=== PATIENT | male | born 1955 | race Caucasian/White ===

== ENCOUNTER 2025-01-24 19:26 | Inpatient (IN) | payer MEDICARE, MEDICAID, SELFPAY ==
--- OUTSIDE RECORDS SUMMARY | 2025-01-22 09:59 | XMS_ITS | Encounter Summary ---
Author Organization [facility]– [place]Note 2] Address [address] [place] [address] Care Team Providers Care Kennel Assistant Name Role Phone Sara Viramontes MD Unavailable Violet Salguero RN Unavailable Unavailable Jim Alfredo DO Unavailable [phone] Cesar Grullon MD Primary Care Provider Romelia Rodriguez LPN Unavailable UnavailPepper Patton AIRPORT OPERATIONS SUPERVISOR Unavailable [phone] Reason for Visit * Reason Comments Psychiatric Evaluation * Auth/Cert Specialty Diagnoses / Procedures Referred By Contac t Referred To Contact Diagnoses Suicidal ideation Referral ID Status Reason Start Date Expiration Date Visits Re quested Visits Authorized [id number] 1 1 Encounter Details Date Type Department Care Team (Late st Contact Info) Description 01/22/2025 9:59 AM EDT - 01/24/2025 5:06 PM EDT Hospital Encounter [facility] - [address] [phone] Andrea Iqbal MD [address] [place] [address] Kathy Leo MD [address] [place] [address] Danny Tapia MD [address] [place] [address] Jaime Awad MD [address] [place] [address] Sohail Benito MD [address] [place] [address] Tristan Monet MD [address] [facility] [place] [address] Lucia Ellis MD [address] [place] [address] Suicidal ideation Discharge Disposition: Psychiatric Hospital other than [facility] Social History Tobacco Use Types Packs/Day Years Used Date Smoking Tobacco: Never Smokeless Tobacco: Never Alcohol Use Standard Drinks/Week Comments No 0 (1 standard drink = 0.6 oz pur e alcohol) Housing Stability - SDOH Screener Answer Date Recorded What is your living situation today? Steady hous ing 08/17/2024 Do you need help with Housing/Alf resources? Not on file 08/17/2024 Patient indicated no issues from the most recent SDOH questionnaire Not on file 08/17/2024 Homeless diagnosis active in problem list or in an encounter in the past year? Yes 08/17/2024 Health Literacy - SDOH Screener Answer Date Recorded Do you ever need help readin g or understanding information about your medical conditions? No 08/17/2024 Patient indicated no issues from the most recent THRIVE questionnaire Not on file 08/17/2024 Oral Health - SDOH Screener Answer Date Recorded Was there a time you needed dental care in the last 12 months but was not received? No 08/17/2024 Patient indicated no issues from the most recent THRIVE questionnaire Not on file 08/17/2024 Transportation - SDOH Screener Answer D ate Recorded Do you have trouble getting transportation to medical appointments? No 08/17/2024 Do you need help with Transp ortation to medical appointments? Not on file 08/17/2024 Patient indicated no issues from the most recent SDOH questionnaire Not on file 08/17/2024 Food Insecurity - SDOH Screener Answer Date Recorded Within the past 12 months, t he food you bought just didn't last and you didn't have money to get more? Never true Within the past 12 months, y ou worried whether your food would run out before you got money to buy more? Sometimes true 2024 Do you need help with Food resources? Not on graciela e 08/17/2024 Patient indicated no issues from the most recent SDOH questionnaire Not on file 08/17/2024 Depression Answer Date Recorded PHQ-9 Total Score 3 08/17/2024 Sparta Depression Scale Score Not o n file 08/17/2024 EPDS: The thought of harming myself has occurred to me Not on file 08/17/2024 PHQ-A: In the past year have you felt depressed or sad most days, even if you felt okay sometimes? Not on file 08/17/2024 PHQ-A: If you are experienci ng any of the problems on this form, how difficult have these problems made it for you to do your work, take care of things at home or get along with other people? Not on file 08/17/2024 PHQ-A: Has there been a time in the past month when you have had serious thoughts about ending your life? Not on file 07/29 PHQ-A: Have you ever, in you r whole life, tried to kill yourself or made a suicide attempt? Not on file 08/17/2024 PHQ9/A: Thoughts that you wo uld be better off , or of hurting yourself in some way? No 08/17/2024 Care Giving - SDOH Screener Answer Date Recorded Do you have trouble taking c are of a child, family member or friend? No 08/17/2024 Do you need help with Childcare/Daycare? Not on file 08/17/2024 Do you need help with Elder Care Not on file 08/17/2024 Patient indicated no issues from the most recent SDOH questionnaire Not on file 08/17/2024 Employment - SDOH Screener Answer Date Recorded Are you currently unemployed and looking for a j ob? No 08/17/2024 Are you or your parent/guard gala currently unemployed and looking for a job? (age <= 21) Not on file 08/17/2024 Patient indicated no issues from the most recent THRIVE questionnaire (<22) Not on file 08/17/2024 Patient indicated no issues from the most recent THRIVE questionnaire (22+) Not on file 08/17/2024 Affording Medications - SDOH Screener Answer Date Recorded Do you have trouble paying for medications? No 08/17/2024 Do you need help with Paying for Medicine resour marlys? Not on file 08/17/2024 Patient indicated no issues from the most recent SDOH questionnaire Not on file 08/17/2024 Fall Risk Screener Answer Date Recorded Have you had any falls in the past year yes 08/17/2024 If yes, how many? 2 08/17/2024 If yes, any injury? Yes 08/17/2024 List injuries: right shoulder 08/17/2024 Utilities - SDOH Screener Answer Date R ecorded Do you have trouble paying y our heating and/or electricity bill? No 08/17/2024 Do you need help with Utilities? Not on file 08/17/2024 Patient indicated no issues from the most recent SDOH questionnaire Not on file 08/17/2024 Social Isolation - SDOH Screener Answer Date Recorded Are you dissatisfied with ho w often you see or talk to people that you care about and feel close to? (For example: talking to friends on the phone, visiting friends or family, going to buddhist or club meetings) No 08/17/2024 Patient indicated no issues from the most recent THRIVE questionnaire Not on file 08/17/2024 Adolescent Depression Answer Date Recor ded PHQ-9 Total Score 3 08/17/2024 Sparta Depression Scale Score Not o n file 08/17/2024 EPDS: The thought of harming myself has occurred to me Not on file 08/17/2024 PHQ-A: In the past year have you felt depressed or sad most days, even if you felt okay sometimes? Not on file 08/17/2024 PHQ-A: If you are experienci ng any of the problems on this form, how difficult have these problems made it for you to do your work, take care of things at home or get along with other people? Not on file 08/17/2024 PHQ-A: Has there been a time in the past month when you have had serious thoughts about ending your life? Not on file 07/29 PHQ-A: Have you ever, in you r whole life, tried to kill yourself or made a suicide attempt? Not on file 08/17/2024 PHQ9/A: Thoughts that you wo uld be better off , or of hurting yourself in some way? No 08/17/2024 Sex and Gender Information Value Date Recorded Sex Assigned at Male 03/07/2024 3:57 PM EDT Legal Sex Male 1:57 PM EST Gender Identity Male 03/07/2024 3:57 PM EDT Sexual Orientation Straight 08/14/2024 10 :23 AM EDT documented as of this encounter Last Filed Vital Signs Vital Sign Reading Time Taken Comments Blood Pressure 140/84 01/24/2025 5:03 PM EDT Pulse 67 01/24/2025 5:03 PM EDT Temperature 36.7 C (98.1 F) 01/24/2025 3:35 AM EDT Respiratory Rate 17 01/24/2025 5:03 PM EDT Oxygen Saturation 100% 01/24/2025 5:03 PM EDT Inhaled Oxygen Concentration - - Weight 68 kg (150 lb) 01/22/2025 10:06 AM EDT Height 167.6 cm (5' 6 ) 01/22/2025 10:06 AM EDT Body Mass Index 24.21 01/22/2025 10:06 AM EDT documented in this encounter Discharge Summaries * Lucia Ellis MD - 01/24/2025 3:56 PM EDT Discharge Diagnosis 1. Suicidal ideation Discharge Order Date/Time 01/24/2025 Discharge Disposition Psychiatric Hospital other than [facility] Discharge Condition Condition: Fair HPI 69 y.o. male placed in observation medically cleared with: 1. Suicidal ideation HPI 69-year-old male with a history of hypothyroidism, hepatocellular carcinoma and hepatitis-C, anxiety and depression presenting with suicidal ideation. Labs are reassuring. Complaining of anxiety, treated with hydroxyzine with improvement. Seen by psychiatry and recommends treating with hydroxyzine t.i.d. PRN Past History Past Medical History: Diagnosis Date Anxiety Dental disease upper denture Depression Disease of thyroid gland Hepatitis C Hypothyroidism Liver cancer (HCC) Pelvis fracture (HCC) Past Surgical History: Procedure Laterality Date CHOLECYSTECTOMY KNEE ARTHROSCOPY Left LAMINECTOMY LIVER RESECTION N/A 03/04/2023 Procedure: HEPATIC RESECTION; Surgeon: Jim Alfredo DO; Location: [facility]; Service: General ORIF FINGER / THUMB FRACTURE Left SHOULDER SURGERY Bilateral rotator cuff left and compound fracture right shoulder Family History Problem Relation Age of Onset No Known Problems Mother No Known Problems Father No Known Problems Sister No Known Problems Brother No Known Problems Son No Known Problems Daughter No Known Problems Maternal Grandmother No Known Problems Maternal Grandfather No Known Problems Paternal Grandmother No Known Problems Paternal Grandfather No Known Problems Cousin Rheum arthritis Neg Hx Osteoarthritis Neg Hx Asthma Neg Hx Diabetes Neg Hx Heart failure Neg Hx Hyperlipidemia Neg Hx Hypertension Neg Hx Migraines Neg Hx Rashes / Skin problems Neg Hx Seizures Neg Hx Stroke Neg Hx Thyroid disease Neg Hx Cancer Neg Hx Social History Tobacco Use Smoking Status Never Smokeless Tobacco Never Substance and Sexual Activity Alcohol Use No Substance and Sexual Activity Drug Use Yes Types: Marijuana Comment: daily Physical Exam General: Alert. No distress. Pulmonary: No respiratory distress Neurological: Moving all extremities at baseline Psychiatric: Calm Assessment & Plan 69 y.o. male placed in observation medically cleared with: 1. Suicidal ideation After further treatment and assessment during this observation stay, I conclude that this patient is medically stable, but requires inpatient psychiatric evaluation to address an unstable behavioral condition. Discharge Summary 69-year-old male with a history of hypothyroidism, hepatocellular carcinoma and hepatitis-C, anxiety and depression presenting with suicidal ideation. Labs are reassuring. Medically cleared. Complaining of anxiety, treated with hydroxyzine with improvement. Seen by psychiatry and recommends treating with hydroxyzine t.i.d. PRN. Evaluated by social work and accepted to [facility] by Dr. Francisco or further treatment Total time spent preparing this discharge summary was less than 30 minutes. Lucia Ellis MD 01/24/25 1558 documented in this encounter Medications at Time of Discharge clomiPHENE (CLOMID) 50 MG tabletIndications:Lo w testosterone in male Take 1 tablet (50 mg total) by mouth daily 30 tablet 2 12/25/2024 gabapentin (NEURONTIN) 300 MG capsuleIndications:C hronic pain syndrome,Closed fracture of ramus of left pubis with delayed healing, subsequent encounter,Chronic right shoulder pain Take 1 capsule (300 mg total) by mouth at bedtime as needed for back pain 90 capsule 2 08/17/2024 levothyroxine (SYNTHROID) 50 MCG tabletIndications:Ot her specified hypothyroidism TAKE 1 TABLET(50 MCG) BY MOUTH EVERY MORNING BEFORE BREAKFAST 90 tablet 3 04/27/2024 lidocaine (LIDODERM) 5 % patchIndications:Rig ht shoulder injury, initial encounter Place 1 patch on the skin every 12 (twelve) hours Remove & Discard patch within 12 hours or as directed by MD 10 patch 09/10/2024 LORazepam (ATIVAN) 0.5 MG tabletIndications:GA D (generalized anxiety disorder),Panic attacks Take 1 tablet (0.5 mg total) by mouth daily as needed for anxiety 6 tablet 09/12/2024 valACYclovir (VALTREX) 500 MG tabletIndications:He rpes TAKE 2 TABLETS(1000 MG) BY MOUTH DAILY 180 tablet 3 06/25/2024 documented as of this encounter Progress Notes * Philomena Ruiz, SALES SYSTEMS ENGINEER - 01/24/2025 3:14 PM EDT PSYCHIATRIC FACILITY TRANSFER NOTIFICATION FORM Type of Placement: Voluntary No Involuntary Yes Section 12 Needed Yes Inpatient Level of Care (check one): X Inpatient Psych ?Med/Psych ?Rita-Psych ? Inpatient Dual Diagnosis ?ACCS ? YCCS ?Other Facility Name: [facility] Address: [address] [place] [address] Erp Manager: STEPHANIE / ADMISSIONS Accepting MD: DR. LISSET MAGALLON Date/Time of Arrival: TODAY FOR 6 PM ARRIVAL PATIENT Notified: CHW TO UPDATE PT Family / Legal Guardian / Health Care Proxy Notified: CHW TO NOTIFY PER PT REQUEST MURIEL signed with accepting facility ([facility] patients ONLY): ? Yes ([facility] Patient) X No (NOT a [facility] Patient) Additional Information / Instruction CHW TO COMPLETE [facility] MITESH FORM AND FAX TO [facility] [phone] * MEGHANN Lou - 01/24/2025 2:52 PM EDT Stephanie/Matthew - requested EKG (faxed), will have MD review referral and call SW back with determination. MEGHANN Lou 01/24/2025 2:52 PM * Tristan Monet MD - 01/24/2025 12:00 AM EDT Daily Progress Note Time In Obs. 3 hours 35 minutes 55 seconds Chief Complaint 1. Suicidal ideation HPI 69 y.o. male placed in observation medically cleared with: 1. Suicidal ideation 69-year-old male with a history of hepatocellular carcinoma not currently on treatment presents with suicidal ideation. The history is provided by medical records. Objective Ht Readings from Last 1 Encounters: 01/22/25 5' 6 (1.676 m) Wt Readings from Last 1 Encounters: 01/22/25 150 lb (68 kg) Body mass index is 24.21 kg/m??. Allergies[1] Vital signs in last 24 hours: [98.1 ??F (36.7 ??C)-98.5 ??F (36.9 ??C)] 98.1 ??F (36.7 ??C) [50-66] 66 [18] 18 (125-140)/(61-73) 125/73 Physical Exam General: Alert. No distress. Pulmonary: No respiratory distress Neurological: Moving all extremities at baseline Psychiatric: Calm Assessment/Plan 69 y.o. male placed in observation medically cleared with: 1. Suicidal ideation Based on my history, physical examination, and initial ED course, the patient's behavioral condition continues to be unstable and requires further observation to help determine final disposition. Plan will be to monitor for significant changes in medical and psychiatric status, observe for and treat agitation, psychosis, or withdrawal symptoms, coordinate care with social work team, and ensure patient safety. [1] No Known Allergies Tristan Monet MD 01/24/25 0000 * Philomena Ruiz, [facility] - 01/23/2025 10:44 AM EDT Behavioral Health - Re-assessment Date of Encounter: 01/23/2025 Intervention started: 10 AM Intervention ended: 1020 AM Telehealth: No Reason for Encounter: Follow up behavioral health re-assessment 20 minutes spent face to face with patient on 01/23/2025. Patient: Mauricio Mix Age: 69 y.o. Gender: male Referring Provider: Cesar Grullon MD PCP: Cesar Grullon MD Assessment Mauricio Mix was re-assessed today due to suicidal ideation. Chart was reviewed and the patient was identified by name and date of . Confidentiality and limits to confidentiality were reviewed. Diagnosis/Problems Problem List[1] Plan Discharge/Transition Plan: INVOLUNTARY INPATIENT PSYCHIATRIC LEVEL OF CARE Does pt meet CCS level of care, and if not why?: No - acuity, meets s.12a criteria HPI/Interval History Pt is a 69 yo male who endorse suicidal ideation with a specific plan and intent in the context of multiple life stressors and lack of support, recommendation is involuntary inpatient psychiatric level of care. Upon reassessment, Pt presents with irritable mood and minimal engagement, interview was limited and terminated due to agitation, states he does not feel well, extremely anxious, continues to endorse suicidal ideation with plan, means and intent noting his terminal illness and recent eviction as primary precitipitants, became agitated when his THC vape pen was found on the floor and handed overto Security, states this helps with pain, RN/MD aware of his complaints of anxiety and pain and will address accordingly, when this SW reiterated the plan of care, became increasingly upset and demanded to leave, I do not want to in an institution, although there is a right to self-determination, he is unable to have a rational conversation re: hospice care and there are other risk factors that place him at imminent risk to suicide. Depression Screening PHQ-9 - unable to participate at this time Anxiety Screening MASSIMO 7 - unable to participate at this time Psychotherapy Plan Focus/target symptoms: Psychotherapy today focused on psychiatric acuity/level of care Goals: Facilitate Safety/stabilization Interventions Jointly developed safety plan for patient. Patient's response/feedback to therapy session: Patient was unable to engage in meaningful/therapeutic discussion due to distress and agitation. Mental Status Examination Appearance - Disheveled Behavior - Uncooperative and Restless Speech - WNL Affect/Mood - Agitated Thought Process - Intact and Brinklow Thought Content - Suicidal Psychosis - Denies Insight - Poor Judgement - Impaired Suicide/Homicide Ideation/Intent/Means: SI with specific plan, means and intent Risk Assessment: Current Risk Behavior/Thoughts/Ideation: SI with specific plan, means and intent History of Risk Behavior or Harmful Acts to Self or Others: no Electronically signed by: MEGHANN Lou 01/23/2025 10:44 AM [1] Patient Active Problem List Diagnosis Traumatic fracture of cervical spine (HCC) Traumatic closed fracture of C6 vertebra with minimal displacement, initial encounter (HCC) Hyponatremia Closed fracture of ramus of left pubis (HCC) Other specified hypothyroidism Suicidal ideation Generalized abdominal pain Other constipation Substance use disorder 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 3 hours 35 minutes 55 seconds Chief Complaint 1. Suicidal ideation HPI 69 y.o. male placed in observation medically cleared with: 1. Suicidal ideation Patient presented with suicidal ideation Objective Ht Readings from Last 1 Encounters: 01/22/25 5' 6 (1.676 m) Wt Readings from Last 1 Encounters: 01/22/25 150 lb (68 kg) Body mass index is 24.21 kg/m??. Allergies[1] Vital signs in last 24 hours: [97.5 ??F (36.4 ??C)-99 ??F (37.2 ??C)] 98.5 ??F (36.9 ??C) [50-73] 52 [18-20] 18 (129-155)/(61-91) 140/61 Physical Exam General: Alert. No distress. Pulmonary: No respiratory distress Neurological: Moving all extremities at baseline Psychiatric: Calm Assessment/Plan 69 y.o. male placed in observation medically cleared with: 1. Suicidal ideation Based on my history, physical examination, and initial ED course, the patient's behavioral condition continues to be unstable and requires further observation to help determine final disposition. Patient requested medications to help with the withdrawal from Kratom. He was provided with benzodiazepines which helped. Clonidine was deferred given heart rate in the 50s. Plan will be to monitor for significant changes in medical and psychiatric status, observe for and treat agitation, psychosis, or withdrawal symptoms, coordinate care with social work team, and ensure patient safety. [1] No Known Allergies Danny Tapia MD 01/23/25 0247 * MEGHANN Lou - 01/22/2025 3:37 PM EDT Referral uploaded to [facility]. MEGHANN Lou 01/22/2025 3:37 PM documented in this encounter Consult Notes * Gwendolyn Murdock NP - 01/24/2025 11:10 AM EDTAssociated Order(s): IP CONSULT TO PSYCHIATRY [facility] [place][Note 2] - Initial Psychiatric Consultation Patient Name: Mauricio Mix : 1955 Chief Complaint/Reason for Consultation: medication management ASSESSMENT 69 y.o. male with a reported history of depression and anxiety who presents to to the emergency department after patient reported SI with plan to overdose on medications to his therapist. Today, met with patient who was resting in bed with his eyes closed with blanket covering his head. Patient gotout of bed and stated I don't need to be here. Patient presents as A&O x3 and reported he told his therapist he was ordering pills to overdose and end his life due to multiple personal stressors. Multiple personal stressors include terminal cirrhosis, lung cancer and being evicted form his apartment. Patient reports he is active with a therapist and does not have a psychiatrist. Denied current psychiatric medications. When asked about listed Ativan 0.5 mg daily PRN patient denied use. He reports being prescribed everything in the 80's including Prozac, Zoloft and Beck[place] . Reports Beck[place] was prescribed for depression and not Bipolar d/o. Reports he vapes marijuana daily (last use on day he presented to ED), and has been drinking Kratom tea 3-4 times/day (last use prior to ED). Hereports using both substances for pain management. Patient has required several PO, IM medications for agitation and anxiety while in the ED. When discussing medications patient reports he does not want to start a daily medication for depression/anxiety at this time. When attempting to possible medi cation options patient stated I don't want anything strong or that can be addicting like Valium. Patient had received a one time dose of Hydroxyzine 50 mg prior to interview which he reports was effective. Discussed having Hydroxyzine 50 mg TID PRN for anxiety ordered and patient agreeable. Patient asked keno writer let me go home, I don't need to be here. Patient made aware that he is unable to leave and that he is an inpatient psychiatric bed search as he reported SI with plan to OD on his medications. HOSPITAL PROBLEMS Principal Problem: Suicidal ideation Active Problems: Substance use disorder Adjustment disorder with mixed anxiety and depressed mood Primary Psychiatric Diagnosis Adjustment disorder with mixed anxiety and depressed mood PLAN (+/-Psychotherapy) Patient is on an involuntary hold due to report of SI with plan to overdose on medications. He has declined starting daily medications for depression/anxiety. He was agreeable to starting [id number] mg TID PRN for anxiety which was ordered by attending. Other Psychiatric Diagnoses: 1) Substance Use disorder PLAN (+/-Psychotherapy): Patient reports daily marijuana and Kratom use. Patient denied current withdrawal symptoms. Reportsanxiety is related to being on a hold for an inpatient psychiatric bed. Discussed possible Kratom withdrawal with attending as Babstom can bind to the same receptors in the brain as opioids. Patient denied current withdrawal symptoms. MDM/Coordination Multiple medical issues lung cancer, cirrhosis and Suicidal ideation Labs reviewed: as below EKG reviewed. QTc: 389 on 01/22/25 EMR reviewed Vital signs reviewed Discussed with ER Physician:Dr. Ellis in person Discussed with patient's nurse HISTORY History of Present Illness: Per nursing patient has been asking for medications to be sedated while he is in the hospital. He has received several doses of IM/PO medications including Versed, Haldol, Zyprexa, Ativan, Clonidine,and Hydroxyzine. Patient voiced frustration that he could not go home and stated whose going to take me, I'm almost 70, I don't want to just stay here in this room. Patient aware that he is an involuntary inpatient bed search and social work is working on bed placement. Patient frustrated with keno writer after learning he would not be discharged home and ended the interview. Psychiatric History: Current Treatment: Ativan 0.5 mg daily PRN for anxiety Inpt: denied Med Trials: Prozac, Zoloft, [place] Suicide Attempts: Denied Substances: marijuana and Kratom use daily Social History: Lives in an apartment with 3 men, facing eviction. Declined further information Developmental History: Declined Family History: Family history unknown Medical History: Past Medical History: Diagnosis Date Anxiety Dental disease upper denture Depression Disease of thyroid gland Hepatitis C Hypothyroidism Liver cancer (HCC) Pelvis fracture (HCC) Past Surgical History: Procedure Laterality Date CHOLECYSTECTOMY KNEE ARTHROSCOPY Left LAMINECTOMY LIVER RESECTION N/A 03/04/2023 Procedure: HEPATIC RESECTION; Surgeon: Jim Alfredo DO; Location: [facility]; Service: General ORIF FINGER / THUMB FRACTURE Left SHOULDER SURGERY Bilateral rotator cuff left and compound fracture right shoulder Allergies: Allergies[1] Home Meds: Prior to Admission medications Medication Sig Start Date End Date Taking? Authorizing Provider clomiPHENE (CLOMID) 50 MG tablet Take 1 tablet (50 mg total) by mouth daily 12/25/24 03/25/25 Yes Cesar Grullon MD gabapentin (NEURONTIN) 300 MG capsule Take 1 capsule (300 mg total) by mouth at bedtime as needed for back pain 08/17/24 08/17/25 Yes Cesar Grullon MD levothyroxine (SYNTHROID) 50 MCG tablet TAKE 1 TABLET(50 MCG) BY MOUTH EVERY MORNING BEFORE BREAKFAST 04/27/24 Yes Mary Ravi NP lidocaine (LIDODERM) 5 % patch Place 1 patch on the skin every 12 (twelve) hours Remove & Discard patch within 12 hours or as directed by 09/10/24 Yes Marcela Khan NP LORazepam (ATIVAN) 0.5 MG tablet Take 1 tablet (0.5 mg total) by mouth daily as needed for anxiety 09/12/24 Yes Cesar Grullon MD valACYclovir (VALTREX) 500 MG tablet TAKE 2 TABLETS(1000 MG) BY MOUTH DAILY 06/25/24 Yes Mary Ravi NP I have reviewed the home medication list Current Meds: Current Facility-Administered Medications: docusate sodium (COLACE) capsule 200 mg, 200 mg, Oral, Daily, Lucia Ellis MD, 200 mg at 01/24/25 0910 gabapentin (NEURONTIN) capsule 300 mg, 300 mg, Oral, At bedtime PRN, Kathy Leo MD, 300 mg at 01/23/25 1933 hydrOXYzine HCl tablet 50 mg, 50 mg, Oral, TID PRN, Lucai Ellis MD levothyroxine (SYNTHROID) tablet 50 mcg, 50 mcg, Oral, Daily before breakfast, Kathy Leo MD, 50 mcg at 01/24/25 0543 lidocaine 4 % (ASPERCREME LIDOCAINE) patch 1 patch, 1 patch, Transdermal, Daily, Kathy Leo MD LORazepam (ATIVAN) tablet 0.5 mg, 0.5 mg, Oral, Daily PRN, Kathy Leo MD, 0.5 mg at 01/24/25 0854 polyethylene glycol 3350 (MIRALAX) powder for oral solution 17 g packet 17 g, 17 g, Oral, Daily PRN, Lucia Ellis MD sennosides (SENNA,SENOKOT) tablet 8.6 mg, 8.6 mg, Oral, At bedtime, Jaime Awad MD, 8.6 mg at 01/23/25 1453 valACYclovir (VALTREX) tablet 1,000 mg, 1,000 mg, Oral, Daily, Kathy Leo MD, 1,000 mg at 01/24/25 0849 Current Outpatient Medications: clomiPHENE (CLOMID) 50 MG tablet, Take 1 tablet (50 mg total) by mouth daily, Disp: 30 tablet, Rfl:2 gabapentin (NEURONTIN) 300 MG capsule, Take 1 capsule (300 mg total) by mouth at bedtime as needed for back pain, Disp: 90 capsule, Rfl: 2 levothyroxine (SYNTHROID) 50 MCG tablet, TAKE 1 TABLET(50 MCG) BY MOUTH EVERY MORNING BEFORE BREAKFAST, Disp: 90 tablet, Rfl: 3 lidocaine (LIDODERM) 5 % patch, Place 1 patch on the skin every 12 (twelve) hours Remove & Discard patch within 12 hours or as directed by MD, Disp: 10 patch, Rfl: 0 LORazepam (ATIVAN) 0.5 MG tablet, Take 1 tablet (0.5 mg total) by mouth daily as needed for anxiety, Disp: 6 tablet, Rfl: 0 valACYclovir (VALTREX) 500 MG tablet, TAKE 2 TABLETS(1000 MG) BY MOUTH DAILY, Disp: 180 tablet, Rfl: 3 I have reviewed the current medication list ROS: positive for - anxiety, behavioral disorder, depression, irritability, and suicidal ideation negative for - disorientation, hallucinations, or memory difficulties EXAMINATION Vitals: Body mass index is 24.21 kg/m??. Height: 5' 6 (167.6 cm) Weight: 150 lb (68 kg) [98 ??F (36.7 ??C)-98.1 ??F (36.7 ??C)] 98.1 ??F (36.7 ??C) [61-66] 62 [18] 18 (119-131)/(62-77) 131/77 Mental Status Evaluation: Appearance/Behavior: Appears stated age, labile when told he would not be discharged home Sensorium/Orientation: Awake, alert, and oriented x 3 Motor/Movements: No abnormal movements observed Speech: Normal rate and volume Mood: I don't need to be here. Affect: Labile Thought Process: [place] Thought Content: No delusions reported Suicide/Homicide Ideation / Intent / Means: SI with plan to overdose on medications Perceptual Disturbances: Denied AVH Cognition: Intact Insight: Poor Judgment Poor Impulse control Poor Short term memory Intact prison memory Intact TESTING Recent Labs: No results found for this or any previous visit (from the past 24 hours). Labs Reviewed CBC AND AUTO DIFFERENTIAL - Abnormal; Notable for the following components: Result Value RBC 3.81 (*) HGB 13.7 (*) HCT 39.4 (*) MCV 103.4 (*) MCH 36.0 (*) PLT 134 (*) All other components within normal limits COMPREHENSIVE METABOLIC PANEL - Abnormal; Notable for the following components: Glucose 123 (*) BUN 8 (*) AST 80 (*) ALT 94 (*) All other components within normal limits ACETAMINOPHEN LEVEL - Abnormal; Notable for the following components: Acetaminophen Level <2 (*) All other components within normal limits TOXICOLOGY SCREEN, URINE (NON FCU) - Abnormal; Notable for the following components: Cannabinoids Qualitative, Ur Detected (*) All other components within normal limits Narrative: This urine immunoassay drug method is for medical SCREENING only and should not be used for non-medical (employment,legal) purposes. The test result(s) may be affected by dietary and over the counter medications. Negative cut-offs for these tests are set to detect DRUG ABUSE. Therapeutic levels of these drugs may not be detected. (The negative cut-offs for the drug classes are: Cocaine, Methadone, Opiates 300 ng/ml; Barbituates, Benzodiazepines 200 ng/ml; Amphetamines 1000 ng/ml; Cannabinoids 50 ng/ml; Buprenorphine 5 ng/ml; Oxycodone 100 ng/ml; Fentanyl 1 ng/ml). As this is a screening methodology, any positive results are UNCONFIRMED. Confirmation of positive results may be requested from the laboratory within 5 days. All test results should be interpreted in context of the patient's clinical condition. ETHANOL - Normal SALICYLATE LEVEL - Normal TOXICOLOGY SCREEN, URINE Narrative: The following orders were created for panel order Toxicology screen, urine. Procedure Abnormality Status --------- ------ Toxicology screen, urine[[id number]] Abnormal Final result Please view results for these tests on the individual orders. Imaging: There were no relevant imaging studies done this admission Gwendolyn Murdock NP 01/24/2025 @ 11:29 AM [1] No Known Allergies Cosigned by Gisele Hackett MD at 01/24/2025 2:32 PM EDT Associated attestation - Gisele Hackett MD - 01/24/2025 2:32 PM EDT I have reviewed the KEV note and agree with the documented findings and plan of care. * Philomena Ruiz, [facility] - 01/22/2025 12:52 PM EDTAssociated Order(s): CONSULT TO MENTAL HEALTH ASSESSMENT Referred by: ED physician Chief Complaint (Reason for visit): Psychiatric Evaluation Intervention Started: 1230 PM Intervention Ended: 1 PM Telehealth: No A consult was placed to assess for psychiatric evaluation/level of care. Chart was reviewed and thepatient was identified by name and date of . Reviewed confidentiality and limits to confidentiality prior to evaluation. Plan Disposition plan: INVOLUNTARY INPATIENT PSYCHIATRIC LEVEL OF CARE Psychosocial History Mauricio Mix is a 69 y.o. single white male who presented to the emergency department by ambulanceon a s.12a for suicidal ideation with a plan. Warm handoff received from Kylie/Sandro, who reports that he had established a safety plan with his psychiatrist (Keira) that he would call Crisis in the event he was experiencing suicidal ideation, which he did so today and stated, I don't see the point of this, I made up my mind, has multiple life stressors - recent cancer diagnosis, has missed numerous medical appointments because he cannot get out of bed, has no natural supports and pending eviction, is waiting for his money to come inon the first of the month, so that he can picker / packer his medications and overdose on them, she recommended inpatient psychiatric level of care, became distressed by this plan. Pt was quite anxious upon arrival, received oral medications, difficult to arouse and remain awake, I'm going to kill myself next week, plan to overdose, interview limited and terminated due to somnolence. Positive for: SI with specific plan, means and intent Negative for: unable to fully assess Collateral contacts: see above Depression Screening PHQ-9 - unable to participate at this time Anxiety Screening MASSIMO 7 - unable to participate at this time Past Psychiatric History Current treatment providers: Yes History of inpatient psychiatric hospitalizations: Yes History of suicide attempts/self-injurious behavior: No History of violence: No Access to weapons: No Substance Use History and Assessment Substances used: Marijuana and Kratum Use Family Psychiatric History: noncontributory Developmental/Social History Marital status: single Living arrangements: evicted from his apartment Support system: therapist Employment status: unknown Source of income: SSI Education level: high school Healthcare access/barriers: none ADLS: independent IADLS: independent HCP: No Guardian: No Legal history: No history: No Trauma history: Yes Mental Status Exam Appearance: thin and drowsy Behavior: calm and cooperative Consciousness/Orientation: oriented to time, place, person, and reason for visit Eye contact: mainly direct Motor activity: no psychomotor agitation and no psychomotor retardation Mood: anxious and depressed Affect: mood congruent Speech: WNL Thought process: concrete Thought content: suicidal Perception (hallucinations): none Delusions: none elicited Suicidal/Homicidal Ideation: SI with specific plan, means and intent Concentration/attention: poor Memory: recent and remote memory intact Intelligence/fund of knowledge: appears average Impulsivity: impulsive Reliability: fair historian Insight: fair Judgment: unimpaired Psychological Risk Assessment Current Risk Behavior/Thoughts/Ideation/plan/means/intent: SI with specific plan, means and intent History of Risk Behavior or Harmful Acts to Self or Others: No Risk and protective factors: therapist, no support otherwise, multiple life stressors Impression/Formulation Pt is a 69 yo male who endorse suicidal ideation with a specific plan and intent in the context of multiple life stressors and lack of support, recommendation is involuntary inpatient psychiatric level of care. Per MD, Pt is medically cleared and there is no active cancer treatment at this time. Diagnosis: F43.20 Adjustment Disorder Therapy plan: Target symptoms: suicide risk Goals of therapy: further stabilization, safety planning Patients capacity to participate and benefit from therapy: yes Estimated duration of treatment/number of sessions: until discharge/transfer Treatment is expected to improve the health status and/or functioning of the patient. Does pt meet CCS level or care, and if not why?: no - acuity, meets s.12a MEGHANN Lou 01/22/2025 @ 2:02 PM documented in this encounter ED Notes * Aisha Aaron RN - 01/24/2025 5:06 PM EDT Nurse to nurse provided to [facility] * Aisha Aaron RN - 01/24/2025 5:04 PM EDT Patient up for transfer to [facility] at this time. [facility] at bedside with patient. Patient educated on plan of care and transfer. [facility] given report. Per , receiving facility will contact this RN when they are ready for report. Patient belongings given to [facility]. Patient seen exiting department strapped into EMS stretcher accompanied by EMS * Aisha Aaron RN - 01/24/2025 9:47 AM EDT Patient self reports x1 bowel movement at this time * Aisha Aaron RN - 01/24/2025 9:06 AM EDT Patient stating he is still anxious and states he hasn't had a bowel movement in 2 days. Patient educated that the lorazepam has not had adequate time to take effect. MD Ellis made aware patient is stating he has not had a bowel movement in 2 days. * Aisha Aaron RN - 01/24/2025 8:53 AM EDT Patient requesting a PRN for anxiety. Patient medicated per eMAR * Rafat Noel RN - 01/24/2025 3:49 AM EDT Pt continues to be restless and requesting medication. Pt feels like he is withdrawing from Kratum.Pt requesting to speak with provider. Provider assessed pt and pt medicated with Clonidine 0.1 mg po * Rafat Noel RN - 01/24/2025 1:23 AM EDT Pt up at this time to use bathroom, ambulating with steady gait * Rafat Noel RN - 01/23/2025 11:52 PM EDT Pt continues to pace around room, reports he needs medication for sleep and anxiety. Pt agitated attimes, provider aware and pt medicated with Haldol 5 mg IM and Versed 2 mg IM. Pt requested IM meds, no physical hold needed. * Rafat Noel RN - 01/23/2025 7:57 PM EDT Pt slammed door, throwing things in room and yelling fuck you, what are your going to do Securitycalled for back-up. Pt then apologized for his behavior * Rafat Noel RN - 01/23/2025 7:39 PM EDT Pt agitated, reports the medication is not helping and requesting more medication for anxiety. Provider aware. Pt medicated with Zyprexa Zydis 5 mg po * Hilary Rothman RN - 01/23/2025 3:14 PM EDT Assumed care of patient at this time. Patient alternating between pacing unit asking for more anxiety medication and tucking self into bed * Sera Matos RN - 01/23/2025 3:03 PM EDT Keira Randall [phone] from outpatient therapy called to ask about patient, patient unwilling to speak to nurse to give verbal consent for conversation with outpatient therapy. Took name and number from outpatient therapy and did not discuss patient or confirm admit. * Sera Matos RN - 01/23/2025 2:55 PM EDT Patient medicated per orders threw cup on the ground and went to bed to lay down under the covers. Patient reports he wants to kill himself and is actively looking for ways to kill himself during admission and is looking for anything in my room to do it No safety hazards seen in room at this time. 1:1 monitoring continues MD Ritesh hand * Sera Matos RN - 01/23/2025 2:45 PM EDT Patient tearful see new orders, awaiting for senna to be verified prior to administration. * Sera Matos RN - 01/23/2025 1:58 PM EDT Patient requesting more anxiety medication and requesting something to help him have a bowel movement. MD Awad aware * Sera Matos RN - 01/23/2025 12:03 PM EDT Patient requesting something for constipation, MD Awad aware * Sera Matos RN - 01/23/2025 11:23 AM EDT Assumed care of patient at this time. Patient resting in stretcher with equal rise and fall of chest wall. 1:1 monitoring continues. * Kat Miles RN - 01/23/2025 7:13 AM EDT Assumed care of this patient. Patient is resting comfortably on the bed. No signs of distress noted. Unlabored breathing with equal chest rise and fall noted. Protective care rounding in place. Care on going. * Felix Cruz RN - 01/23/2025 6:51 AM EDT GOOD EFFECT NOTED FROM ATIVAN GIVEN EARLIER FOR ANXIETY AND SLEEP, PT HAS BEEN SLEEPING IN LONG NAPS AFTER MED GIVEN, NO FURTHER COMPLAINTS OFFERED * Felix Cruz RN - 01/23/2025 3:43 AM EDT PT UP AGAIN TO THE DESK C/O CONSTIPATION, PT REPORTED NO BM IN 3 DAYS, NOTIFIED AND ORDER OBTAINED FOR MOM 15ML'S PO GIVEN, EFFECT PENDING * Felix Cruz RN - 01/23/2025 1:09 AM EDT PT HAS BEEN SLEEPING IN SHORT NAPS, PT C/O RESTLESSNESS AND ANXIETY, NOTIFIED AND ORDER OBTAINEDFOR ATIVAN 2MG PO GIVEN, EFFECT PENDING * Kathy Leo MD - 01/23/2025 12:05 AM EDT Assumed care of this patient from off-going physician, pending psychiatric disposition. I was asked to see the patient as he was reporting feeling unwell suspecting he was withdrawing from kratom , requesting medication for this On my approach, he is sleeping comfortably, awakens to touch and appears calm, speech clear. Explained there is no specific medication to treat kratom withdrawal. Asked what symptoms he is feeling, he says only anxiety. Provided oral anxiolytic A while later, he apparently was up and profoundly restless banging on windows and could not be verbally redirected so given IM meds Kathy Leo MD 01/23/25 0132 * Felix Cruz RN - 01/22/2025 11:30 PM EDT ASSUMED CARE OF PT, PT QUIETLY LAYING ON HIS BED, PT REQUESTED AND RECEIVED A SNACK AND A DRINK, PTSTATES THAT HE STILL CAN'T SLEEP EVEN THOUGH HE APPEARS TIRED, PT REDIRECTED AT THIS TIME DUE TO GETTING MEDS A LITTLE OVER AN HOUR AGO, WILL CONTINUE TO MONITOR * Hilary Rothman RN - 01/22/2025 9:50 PM EDT Patient continuing to yell and bang on windows despite requests to stop and reminders he will wake up other patients. made aware and 5+2 ordered * Hilary Rothman RN - 01/22/2025 9:48 PM EDT Patient yelling and banging on window. Pacing in unit and crying * Hilary Rothman RN - 01/22/2025 9:16 PM EDT Patient now crawling on floor in room * Hilary Rothman RN - 01/22/2025 9:15 PM EDT Patient threw dinner tray in room * Hilary Rothman RN - 01/22/2025 7:48 PM EDT Patient expressing lightheadedness. Vitals obtained. Patient suspecting kratom withdrawal. Will consult with MD * Hilary Rothman RN - 01/22/2025 6:46 PM EDT Patient provided fresh scrubs at this time * Hilary Rothman RN - 01/22/2025 3:11 PM EDT Assumed care at this time. Pt noted to be resting on stretcher watching television. Respirations even and unlabored, equal chest rise and fall noted. No signs of distress noted. * Glo Grubbs RN - 01/22/2025 1:53 PM EDT Patient walking in and out of room, calm and cooperative. No distress continue to monitor under close observation, safety maintained. * Glo Grubbs RN - 01/22/2025 12:46 PM EDT Being evaluated by Social Work at this time. * Lisandra Barnett RN - 01/22/2025 11:44 AM EDT Assumed care of pt at this time, found pt ambulatory to /from [facility]. Pt anxious. Calm and cooperative, conversing with staff. Endorses concerns about moving his bowels and his medical diagnoses.Conversing with staff appropriately. Given water and crackers per request. * Andrea Iqbal MD - 01/22/2025 11:23 AM EDT Service Date: ED Arrival Date 01/22/25 Chief Complaint Chief Complaint Patient presents with Psychiatric Evaluation MDM SUMMARY Number and Complexity of Problems Acute Problems Considered Suicidal ideation: Patient presenting with suicidal ideation, plan to overdose. Plan for lab work, social work evaluation. Chronic Conditions Considered Hepatocellular carcinoma Amount and Complexity of Data Tests Ordered and reviewed [x] CBC [x] CMP [x] Troponin [] UA [] EKG [] Imaging Other: [] ordered [] reviewed [] Considered but not ordered External Note(s) reviewed [] Assessment required independent historian from [] Tests independently interpreted by me [] Chest Xray - see ED Course [] EKG - see ED Course [] Other Discussed Management with [x] Management discussed with social media designer Discussed Test Interpretation with [] Risk of Complications and/or Morbidity/Mortality Drugs [] OTC [x] Prescription Drug Management [] Parenteral Controlled Substances [] Drug Therapy Requiring Intensive Monitoring Treatment [x] Decision regarding Hospitalization [] Decision not to resuscitate or to de-escalate care because of poor prognosis [] Diagnosis or treatment significantly limited by social determinants of health Surgery [] Tests [] HPI 69-year-old male, history of hepatitis-C, with reported cirrhosis, and documentation in the chart of hepatocellular carcinoma, presents to the emergency department for evaluation of suicidal ideation Patient feels he is terminally ill, and had a plan to take pills next week to kill himself Denies any significant physical complaints at this time He also reports that he is in an unstable has not situation and probably going to lose his house jen few weeks. The history is provided by the patient. ROS Review of Systems Past History Past Medical History: Diagnosis Date Anxiety Dental disease upper denture Depression Disease of thyroid gland Hepatitis C Hypothyroidism Liver cancer (HCC) Pelvis fracture (HCC) Past Surgical History: Procedure Laterality Date CHOLECYSTECTOMY KNEE ARTHROSCOPY Left LAMINECTOMY LIVER RESECTION N/A 03/04/2023 Procedure: HEPATIC RESECTION; Surgeon: Jim Alfredo DO; Location: [facility]; Service: General ORIF FINGER / THUMB FRACTURE Left SHOULDER SURGERY Bilateral rotator cuff left and compound fracture right shoulder Family History Problem Relation Age of Onset No Known Problems Mother No Known Problems Father No Known Problems Sister No Known Problems Brother No Known Problems Son No Known Problems Daughter No Known Problems Maternal Grandmother No Known Problems Maternal Grandfather No Known Problems Paternal Grandmother No Known Problems Paternal Grandfather No Known Problems Cousin Rheum arthritis Neg Hx Osteoarthritis Neg Hx Asthma Neg Hx Diabetes Neg Hx Heart failure Neg Hx Hyperlipidemia Neg Hx Hypertension Neg Hx Migraines Neg Hx Rashes / Skin problems Neg Hx Seizures Neg Hx Stroke Neg Hx Thyroid disease Neg Hx Cancer Neg Hx Social History[1] Physical Exam Triage Vitals [01/22/25 1006] BP 155/91 Heart Rate 71 Resp 20 Temp 97.5 ??F (36.4 ??C) Temp src Oral SpO2 96 % Weight 150 lb (68 kg) Height 5' 6 (1.676 m) Body mass index is 24.21 kg/m??. [place] body weight: 63.8 kg (140 lb 10.5 oz) Physical Exam Vitals and nursing note reviewed. Constitutional: Appearance: He is well-developed. Comments: Cachectic HENT: Head: Normocephalic and atraumatic. Right Ear: External ear normal. Left Ear: External ear normal. Nose: Nose normal. Eyes: Conjunctiva/sclera: Conjunctivae normal. Cardiovascular: Rate and Rhythm: Normal rate and regular rhythm. Pulmonary: Effort: Pulmonary effort is normal. No respiratory distress. Breath sounds: Normal breath sounds. Abdominal: General: There is no distension. Tenderness: There is no abdominal tenderness. Musculoskeletal: Cervical back: Normal range of motion and neck supple. Skin: General: Skin is warm and dry. Findings: No rash. Neurological: Cranial Nerves: No cranial nerve deficit. Psychiatric: Behavior: Behavior normal. ED Course Labs reviewed by me: Labs Reviewed CBC AND AUTO DIFFERENTIAL - Abnormal; Notable for the following components: Result Value RBC 3.81 (*) HGB 13.7 (*) HCT 39.4 (*) MCV 103.4 (*) MCH 36.0 (*) PLT 134 (*) All other components within normal limits COMPREHENSIVE METABOLIC PANEL - Abnormal; Notable for the following components: Glucose 123 (*) BUN 8 (*) AST 80 (*) ALT 94 (*) All other components within normal limits ACETAMINOPHEN LEVEL - Abnormal; Notable for the following components: Acetaminophen Level <2 (*) All other components within normal limits TOXICOLOGY SCREEN, URINE (NON FCU) - Abnormal; Notable for the following components: Cannabinoids Qualitative, Ur Detected (*) All other components within normal limits Narrative: This urine immunoassay drug method is for medical SCREENING only and should not be used for non-medical (employment,legal) purposes. The test result(s) may be affected by dietary and over the counter medications. Negative cut-offs for these tests are set to detect DRUG ABUSE. Therapeutic levels of these drugs may not be detected. (The negative cut-offs for the drug classes are: Cocaine, Methadone, Opiates 300 ng/ml; Barbituates, Benzodiazepines 200 ng/ml; Amphetamines 1000 ng/ml; Cannabinoids 50 ng/ml; Buprenorphine 5 ng/ml; Oxycodone 100 ng/ml; Fentanyl 1 ng/ml). As this is a screening methodology, any positive results are UNCONFIRMED. Confirmation of positive results may be requested from the laboratory within 5 days. All test results should be interpreted in context of the patient's clinical condition. ETHANOL - Normal SALICYLATE LEVEL - Normal TOXICOLOGY SCREEN, URINE Narrative: The following orders were created for panel order Toxicology screen, urine. Procedure Abnormality Status --------- ------ Toxicology screen, urine[[id number]] Abnormal Final result Please view results for these tests on the individual orders. Radiology imaging reviewed by me: No orders to display Procedures No notes on file Progress Medical Decision Making Suicidal ideation: Patient presenting with suicidal ideation, plan to overdose. Plan for lab work, social work evaluation. Amount and/or Complexity of Data Reviewed Labs: ordered. Decision-making details documented in ED Course. Risk Prescription drug management. Based on my history, physical examination and initial ED course, the patient is now medically clearbut his behavioral condition continues to be unstable and requires further observation to help determine final disposition. Plan will be to monitor for significant changes in medical and psychiatric status, observe for and treat agitation, psychosis, or withdrawal symptoms, coordinate care with social work team, and ensure patient safety. Clinical Impressions: ED Course as of 01/22/25 1334 Tue Jan 22, 2025 1023 WBC: 6.5 1023 Hemoglobin(!): 13.7 1023 Hematocrit(!): 39.4 1023 Platelets(!): 134 1101 Sodium: 136 1101 Potassium: 4.1 1101 Chloride: 100 1101 CO2: 29 1101 Glucose(!): 123 1101 Creatinine: 1.00 1101 Total Bilirubin: 0.4 1101 AST(!): 80 1101 Alkaline Phosphatase: 101 1101 ALT(!): 94 1102 Ethanol Lvl: <3 1102 Salicylate Lvl: <3.0 1102 Acetaminophen Level(!): <2 1307 Patient evaluated by social work, will require more intensive treatment Clinical Impressions: as of 01/22/25 1334 Suicidal ideation Care Transferred: Disposition Observation [1] Social History Socioeconomic History Marital status: Single Tobacco Use Smoking status: Never Smokeless tobacco: Never Vaping Use Vaping status: Every Day Substances: THC Substance and Sexual Activity Alcohol use: No Drug use: Yes Types: Marijuana Comment: daily Sexual activity: Yes Partners: Female control/protection: None Andrea Iqbal MD 01/22/251334 * Ambika Abbott RN - 01/22/2025 11:00 AM EDT Med rec completed with [facility] pharmacy at this time. * Ambika Abbott RN - 01/22/2025 10:37 AM EDT Pt restless, wandering through hallways and this RN redirecting pt with minimal effect, pt extremely anxious, MD Rasheed made aware and MD to evaluate pt and formulate a plan. Protective care rounding in place at this time. * Ambika Abbott RN - 01/22/2025 10:16 AM EDT Pt changed into green scrubs at this time. * Ambika Abbott RN - 01/22/2025 10:12 AM EDT 69 y/o M presents to ED on section 12 for psychiatric evaluation after he made +SI comments to his therapist. 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 Pt also reports he is being evicted from his apartment next week. Pt reports feelings of hopelessness, depression, and anxiety. Reports he has been using cannabis and Kratum to assist with his pain. Pt endorses +SI with plan to buy pills and take them all at once. documented in this encounter Miscellaneous Notes * ED Procedure Note - Kathy Leo MD - 01/22/2025 10:49 PM EDTAssociated Order(s): EKG electrocardiogram EKG electrocardiogram Date/Time: 01/22/2025 10:49 PM Performed by: Kathy Leo MD Authorized by: Kathy Leo MD Measurements: QTc Interval: 389 ms Findings: Rate: bradycardic Rhythm: Sinus rhythm ST Segments: normal T Waves: normal Interpreted by ED physician Kathy Leo MD 01/22/25 073 documented in this encounter Plan of Treatment Upcoming Encounters Date Type Department Care Team (Late st Contact Info) Description 02/05/2025 3:00 PM EDT Lab [facility] [address] [place] [address] 02/21/2025 1:40 PM EDT Office Visit [facility] [address] [place] [address] Cesar Grullon MD [address] [facility], [address] [place] [address] 04/16/2025 3:10 PM EST Office Visit [facility] [address] [place] [address] [place] [facility] [address] [place] [address] documented as of this encounter Procedures Procedure Name Priority Date/Time Associated Diagnosis Comments ECG 12-LEAD STAT 01/22/2025 10:49 PM EDT TOXICOLOGY SCREEN, URINE (NON FCU) STAT 01/22/2025 10:14 AM EDT TOXICOLOGY SCREEN, URINE STAT 01/22/2025 10:14 AM EDT CBC AND AUTO DIFFERENTIAL STAT 01/22/2025 10:14 AM EDT ETHANOL STAT 01/22/2025 10:14 AM EDT ACETAMINOPHEN LEVEL STAT 01/22/2025 1 0:14 AM EDT SALICYLATE LEVEL STAT 01/22/2025 10:1 4 AM EDT COMPREHENSIVE METABOLIC PANEL STAT 01/22/2025 10:14 AM EDT documented in this encounter Results * ECG 12-LEAD (01/22/2025 10:49 PM EDT) Narrative Kathy Leo MD - 01/22/2025 10:49 PM EDT Kathy Leo MD 01/22/2025 10:50 PM EKG electrocardiogram Date/Time: 01/22/2025 10:49 PM Performed by: Kathy Leo MD Authorized by: Kathy Leo MD Measurements: QTc Interval: 389 ms Findings: Rate: bradycardic Rhythm: Sinus rhythm ST Segments: normal T Waves: normal Interpreted by ED physician us Kathy Leo MD ECG ORDERABLES Final Result * (ABNORMAL) Toxicology screen, urine (01/22/2025 10:14 AM EDT) Amphetamine Qualitative, Ur None Detected None Detected 01/22/2025 12:54 PM EDT [facility] Barbiturates Qualitative, Ur None Detected None Detected 01/22/2025 12:54 PM EDT [facility] Benzodiazepines Qualitative, Ur None Detected None Detected 01/22/2025 12:54 PM EDT [facility] Methadone Qualitative, Ur None Detected None Detected 01/22/2025 12:54 PM EDT [facility] Opiates Qualitative, Ur None Detected None Detected 01/22/2025 12:54 PM EDT [facility] Cannabinoids Qualitative, Ur Detected(A) None Detected 01/22/2025 12:54 PM EDT [facility] Cocaine Qualitative, Ur None Detected None Detected 01/22/2025 12:54 PM EDT [facility] Oxycodone Qualitative Urine None Detected None Detected 01/22/2025 12:54 PM EDT [facility] Buprenorphine Qualitative Urine None Detected None Detected 01/22/2025 12:54 PM EDT [facility] Fentanyl Qualitative, Ur None Detected None Detected 01/22/2025 12:54 PM EDT [facility] Creatinine, Urine 42.0 20.0 - 400.0 mg/dL 01/22/2025 12:54 PM EDT [facility] Urine Urine specimen obtained by clean catch procedure / Unknown Collection / Unknown 01/22/2025 10:14 AM EDT 01/22/2025 12:24 PM EDT Narrative [facility] - 01/22/2025 12:54 PM EDT This urine immunoassay drug method is for medical SCREENING only and should not be used for non-medical (employment,legal) purposes. The test result(s) may be affected by dietary and over the counter medications. Negative cut-offs for these tests are set to detect DRUG ABUSE. Therapeutic levels of these drugs may not be detected. (The negative cut-offs for the drug classes are: Cocaine, Methadone, Opiates 300 ng/ml; Barbituates, Benzodiazepines 200 ng/ml; Amphetamines 1000 ng/ml; Cannabinoids 50 ng/ml; Buprenorphine 5 ng/ml; Oxycodone 100 ng/ml; Fentanyl 1 ng/ml). As this is a screening methodology, any positive results are UNCONFIRMED. Confirmation of positive results may be requested from the laboratory within 5 days. All test results should be interpreted in context of the patient's clinical condition. us Andrea Iqbal MD URINE ORDERABLES Final Result Performing Organization Address [facility] de Phone Number [facility] [address] [place] [phone] * Salicylate level (01/22/2025 10:14 AM EDT) Salicylate <3.0 <30.0 mg/dL 01/22/2025 10:38 AM EDT [facility] Blood Venipuncture / Unknown 01/22/2025 10:14 AM EDT 01/22/2025 10:15 AM EDT us Andrea Iqbal MD LAB BLOOD ORDERABLES Final Resu lt Performing Organization Address [facility] de Phone Number [facility] [address] [place] [phone] * (ABNORMAL) Acetaminophen level (01/22/2025 10:14 AM EDT) Acetaminophen Level <2(L) 10 - 20 ug/mL 01/22/2025 10:38 AM EDT [facility] Blood Venipuncture / Unknown 01/22/2025 10:14 AM EDT 01/22/2025 10:15 AM EDT us Andrea Iqbal MD LAB BLOOD ORDERABLES Final Resu lt Performing Organization Address [facility] Co de Phone Number [facility] [address] [place] [address] * Ethanol (01/22/2025 10:14 AM EDT) Ethanol Lvl <3 <10 mg/dL 01/22/2025 10:38 AM EDT [facility] Blood Venipuncture / Unknown 01/22/2025 10:14 AM EDT 01/22/2025 10:15 AM EDT Andrea Iqbal MD LAB BLOOD ORDERABLES Final Resu lt Performing Organization Address [facility] de Phone Number [facility] [address] [place] [phone] * (ABNORMAL) Comprehensive metabolic panel (01/22/2025 10:14 AM EDT) Sodium 136 136 - 145 mEq/L 01/22/2025 10:37 AM EDT [facility] Potassium 4.1 3.5 - 5.1 mEq/L 01/22/2025 10:37 AM EDT [facility] Chloride 100 98 - 109 mEq/L 01/22/2025 10:37 AM EDT [facility] CO2 29 20 - 31 mEq/L 01/22/2025 10:37 AM EDT [facility] Anion Gap 7 4 - 15 mEq/L 01/22/2025 10:37 AM EDT [facility] Glucose 123(H) 70 - 100 mg/dL 01/22/2025 10:37 AM EDT [facility] Creatinine 1.00 0.60 - 1.10 mg/dL 01/22/2025 10:37 AM EDT [facility] eGFR (Male) >60 60 - 115 mL/min 01/22/2025 10:37 AM EDT [facility] BUN 8(L) 9 - 23 mg/dL 01/22/2025 10:37 AM EDT [facility] Calcium 8.6 8.3 - 10.6 mg/dL 01/22/2025 10:37 AM EDT [facility] Total Protein 7.2 5.7 - 8.2 g/dL 01/22/2025 10:37 AM EDT [facility] Albumin 4.6 3.2 - 4.8 g/dL 01/22/2025 10:37 AM EDT [facility] A/G Ratio 1.8 1.0 - 2.3 01/22/2025 10:37 AM EDT [facility] Total Bilirubin 0.4 0.2 - 1.0 mg/dL 01/22/2025 10:37 AM EDT [facility] AST 80(H) 13 - 40 U/L 01/22/2025 10:37 AM EDT [facility] Alkaline Phosphatase 101 46 - 116 IU/L 01/22/2025 10:37 AM EDT [facility] ALT 94(H) 7 - 40 U/L 01/22/2025 10:37 AM EDT [facility] Blood Venipuncture / Unknown 01/22/2025 10:14 AM EDT 01/22/2025 10:15 AM EDT us Andrea Iqbal MD LAB BLOOD ORDERABLES Final Resu lt [facility] [address] [place] [phone] * (ABNORMAL) CBC and Auto Differential (01/22/2025 10:14 AM EDT) WBC 6.5 4.8 - 11.2 10*3/ L 01/22/2025 10:22 AM EDT [facility] RBC 3.81(L) 4.00 - 5.90 10*6/ L 01/22/2025 10:22 AM EDT [facility] HGB 13.7(L) 14.0 - 17.2 g/dL 01/22/2025 10:22 AM EDT [facility] HCT 39.4(L) 40.0 - 52.0 % 01/22/2025 10:22 AM EDT [facility] MCV 103.4(H) 82.0 - 98.0 fL 01/22/2025 10:22 AM EDT [facility] MCH 36.0(H) 27.0 - 35.0 pg 01/22/2025 10:22 AM EDT [facility] MCHC 34.8 32.0 - 37.0 g/dL 01/22/2025 10:22 AM EDT [facility] RDW 13.6 12.0 - 15.0 % 01/22/2025 10:22 AM EDT [facility] PLT 134(L) 150 - 400 10*3/ L 01/22/2025 10:22 AM EDT [facility] MPV 9.8 7.0 - 14.0 fL 01/22/2025 10:22 AM EDT [facility] Neut % 70.0 45.0 - 85.0 % 01/22/2025 10:22 AM EDT [facility] Immature Granulocytes % 0.3 0 - 5.0 % 01/22/2025 10:22 AM EDT [facility] Lymph % 19.8 15.0 - 45.0 % 01/22/2025 10:22 AM EDT [facility] [place] % 9.0 0.0 - 12.0 % 01/22/2025 10:22 AM EDT [facility] Eos % 0.6 0.0 - 7.0 % 01/22/2025 10:22 AM EDT [facility] Baso % 0.3 0.0 - 3.0 % 01/22/2025 10:22 AM EDT [facility] NRBC% 0 0 /100 WBC /100 WBC 01/22/2025 10:22 AM EDT [facility] Neut # 4.5 2.2 - 9.5 10*3/ L 01/22/2025 10:22 AM EDT [facility] Immature Granulocytes Absolute 0.02 0.00 - 0.56 10*3/ L 01/22/2025 10:22 AM EDT [facility] Lym # 1.3 0.7 - 5.0 10*3/ L 01/22/2025 10:22 AM EDT [facility] [place] # 0.6 0.0 - 1.3 10*3/ L 01/22/2025 10:22 AM EDT [facility] Eos # 0.0 0.0 - 0.4 10*3/ L 01/22/2025 10:22 AM EDT [facility] Baso # 0.0 0.0 - 0.3 10*3/ L 01/22/2025 10:22 AM EDT [facility] Blood Venipuncture / Unknown 01/22/2025 10:14 AM EDT 01/22/2025 10:15 AM EDT us Andrea Iqbal MD LAB BLOOD ORDERABLES Final Resu lt Performing Organization Address City/State/[facility] Co de Phone Number [facility] [address] [place] [phone] documented in this encounter Visit Diagnoses Diagnosis Suicidal ideation- Primary Suicidal ideation Adjustment disorder with mixed anxiety and depressed mood Substance use disorder documented in this encounter Admitting Diagnoses Diagnosis Suicidal ideation documented in this encounter Administered Medications Active Administered Medications - up to 3 most recent administrations Medication Order MAR Action Action Date Dose Rate Site docusate sodium (COLACE) capsule 200 mg 200 mg, Oral, Daily, First dose on Tue01/24/25 at 0908 Given 01/24/2025 9:10 AM EDT 200 mg gabapentin (NEURONTIN) capsule 300 mg 300 mg, Oral, At bedtime PRN, back pain, Starting on Tue01/22/25 at 2205 Given 01/23/2025 7:33 PM EDT 300 mg hydrOXYzine HCl tablet 50 mg 50 mg, Oral, 3 times daily PRN, anxiety, Starting on Tue01/24/25 at 1103, Look-alike / Sound-alike Medication levothyroxine (SYNTHROID) tablet 50 mcg 50 mcg, Oral, Every morning before breakfast, First dose on Tue01/23/25 at 0600 Given 01/24/2025 5:43 AM EDT 50 mcg Given 01/23/2025 6:47 AM EDT 50 mcg LORazepam (ATIVAN) tablet 0.5 mg 0.5 mg, Oral, Daily PRN, anxiety, Starting on Tue01/22/25 at 2205 Given 01/24/2025 8:54 AM EDT 0.5 mg Given 01/23/2025 10:24 AM EDT 0.5 mg polyethylene glycol 3350 (MIRALAX) powder for oral solution 17 g packet 17 g 17 g, Oral, Daily PRN, constipation, Starting on Tue01/24/25 at 0907, Stir the powder in 4-8 oz of beverage until completely dissolved. sennosides (SENNA,SENOKOT) tablet 8.6 mg 8.6 mg, Oral, At bedtime, First dose (after last modification) on Tue01/23/25 at 1448 Given 01/23/2025 2:53 PM EDT 8. 6 mg valACYclovir (VALTREX) tablet 1,000 mg 1,000 mg, Oral, Daily, Indications: Herpes Simplex Virus Meningitis, First dose on Tue01/23/25 at 0900, Look-alike / Sound-alike Medication Indications:Herpes Simplex Virus Meningitis Given 01/24/2025 8:49 AM EDT 1,000 mg Given 01/23/2025 10:24 AM EDT 1,000 mg Inactive Administered Medications - up to 3 most recent administrations Medication Order MAR Action Action Date Dose Rate Site cloNIDine (CATAPRES) tablet 0.1 mg 0.1 mg, Oral, Once, On Tue01/22/25 at 1108, For 1 dose, Hold for SBP below 100 mmHg or HR below 50 Look-alike / Sound-alike Medication Given 01/22/2025 11:42 AM EDT 0.1 mg cloNIDine (CATAPRES) tablet 0.1 mg 0.1 mg, Oral, Once, On Tue01/24/25 at 0343, For 1 dose, Hold for SBP below 100 mmHg or HR below 50 Look-alike / Sound-alike Medication Given 01/24/2025 3:44 AM EDT 0.1 mg haloperidol lactate 5 MG/ML injection - ADS Override Pull Starting on Tue01/22/25 at 2151, For 1 dose, Hilary Rothman: cabinet override haloperidol lactate injection 5 mg 5 mg, Intramuscular, Once, On Tue01/22/25 at 2153, For 1 dose Given 01/22/2025 9:55 PM EDT 5 mg Left Anterior Thigh haloperidol lactate injection 5 mg 5 mg, Intramuscular, Once, On Tue01/23/25 at 2346, For 1 dose Given 01/23/2025 11:51 PM EDT 5 mg Left Anterior Thigh hydrOXYzine HCl tablet 25 mg 25 mg, Oral, Once, On Tue01/22/25 at 2105, For 1 dose, Look-alike / Sound-alike Medication Given 01/22/2025 9:09 PM EDT 25 mg hydrOXYzine HCl tablet 50 mg 50 mg, Oral, Once, On Tue01/22/25 at 1615, For 1 dose, Look-alike / Sound-alike Medication Given 01/22/2025 4:38 PM EDT 50 mg hydrOXYzine HCl tablet 50 mg 50 mg, Oral, Once, On Tue01/24/25 at 0940, For 1 dose, Look-alike / Sound-alike Medication Given 01/24/2025 9:46 AM EDT 50 mg LORazepam (ATIVAN) 2 MG/ML injection - ADS Override Pull Starting on Tue01/22/25 at 2152, For 1 dose, Hilary Rothman: cabinet override LORazepam (ATIVAN) injection 2 mg 2 mg, Intramuscular, Once, On Tue01/22/25 at 2153, For 1 dose Given 01/22/2025 9:55 PM EDT 2 mg Left Anterior Thigh LORazepam (ATIVAN) tablet 1 mg 1 mg, Oral, Once, On Tue01/23/25 at 1126, For 1 dose Given 01/23/2025 12:02 PM EDT 1 mg LORazepam (ATIVAN) tablet 1 mg 1 mg, Oral, Once, On Tue01/23/25 at 1441, For 1 dose Given 01/23/2025 2:44 PM EDT 1 mg LORazepam (ATIVAN) tablet 2 mg 2 mg, Oral, Once, On Tue01/22/25 at 1046, For 1 dose Given 01/22/2025 10:47 AM EDT 2 mg LORazepam (ATIVAN) tablet 2 mg 2 mg, Oral, Once, On Tue01/22/25 at 1454, For 1 dose Given 01/22/2025 3:04 PM EDT 2 mg LORazepam (ATIVAN) tablet 2 mg 2 mg, Oral, Once, On Tue01/23/25 at 0104, For 1 dose Given 01/23/2025 1:08 AM EDT 2 mg magnesium hydroxide (MILK OF MAGNESIA) 2400 mg/30 mL oral suspension 15 mL 15 mL, Oral, Once, On Tue01/23/25 at 0338, For 1 dose Given 01/23/2025 3:41 AM EDT 15 mL midazolam (VERSED) injection 2 mg 2 mg, Intramuscular, Once, On Tue01/23/25 at 2346, For 1 dose Given 01/23/2025 11:51 PM EDT 2 mg Right Thigh OLANZapine (ZyPREXA ZYDIS) orally disintegrating tablet 5 mg 5 mg, Oral, Once, On Tue01/23/25 at 1930, For 1 dose Given 01/23/2025 7:31 PM EDT 5 mg documented in this encounter Active and Recently Administered Medications Times are shown in EDT. Scheduled Medication Order 01/22/2025 01/23/2025 01/24/2025 cloNIDine (CATAPRES) tablet 0.1 mg (COMPLETED) 0.1 mg, Oral, Once, On Tue01/22/25 at 1108, For 1 dose, Hold for SBP below 100 mmHg or HR below 50 Look-alike / Sound-alike Medication 1142 (Given - Provider: Lisandra Barnett RN) cloNIDine (CATAPRES) tablet 0.1 mg (COMPLETED) 0.1 mg, Oral, Once, On Tue01/24/25 at 0343, For 1 dose, Hold for SBP below 100 mmHg or HR below 50 Look-alike / Sound-alike Medication 0344 (Given - Provider: Rafat Noel RN) docusate sodium (COLACE) capsule 200 mg 200 mg, Oral, Daily, First dose on Tue01/24/25 at 0908 0910 (Given - Provider: Aisha Aaron RN) haloperidol lactate injection 5 mg (COMPLETED) 5 mg, Intramuscular, Once, On Tue01/22/25 at 2153, For 1 dose 215 (Given - Provider: Hilary Rothman, JACOB) haloperidol lactate injection 5 mg (COMPLETED) 5 mg, Intramuscular, Once, On Tue01/23/25 at 2346, For 1 dose 2351 (Given - Provider: Rafat Noel, JACOB) hydrOXYzine HCl tablet 25 mg (COMPLETED) 25 mg, Oral, Once, On Tue01/22/25 at 2105, For 1 dose, Look-alike / Sound-alike Medication 2109 (Given - Provider: Hilary Rothman, JACOB) hydrOXYzine HCl tablet 50 mg (COMPLETED) 50 mg, Oral, Once, On Tue01/22/25 at 1615, For 1 dose, Look-alike / Sound-alike Medication 1638 (Given - Provider: Hilary Rothman, JACOB) hydrOXYzine HCl tablet 50 mg (COMPLETED) 50 mg, Oral, Once, On Tue01/24/25 at 0940, For 1 dose, Look-alike / Sound-alike Medication 0946 (Given - Provider: Aisha Aaron, JACOB) levothyroxine (SYNTHROID) tablet 50 mcg 50 mcg, Oral, Every morning before breakfast, First dose on Tue01/23/25 at 0600 0647 (Given - Provider: Felix Cruz RN) 0543 (Given - Provider: Rafat Noel RN) lidocaine 4 % (ASPERCREME LIDOCAINE) patch 1 patch 1 patch, Transdermal, Daily, First dose on Tue01/23/25 at 0900, Apply to affected area of back Remove patch(es) after 12 hours 0933 (Hold - Provider: Kat Miles, JACOB - Reason: Patient Sleeping) 0850 (Not Given - Provider: Aisha Aaron RN - Reason: Patient/family refused) LORazepam (ATIVAN) injection 2 mg (COMPLETED) 2 mg, Intramuscular, Once, On Tue01/22/25 at 2153, For 1 dose 2154 (Given - Provider: Hilary Rothman, JACOB) LORazepam (ATIVAN) tablet 1 mg (COMPLETED) 1 mg, Oral, Once, On Tue01/23/25 at 1126, For 1 dose 1202 (Given - Provider: Sera Matos RN) LORazepam (ATIVAN) tablet 1 mg (COMPLETED) 1 mg, Oral, Once, On Tue01/23/25 at 1441, For 1 dose 1444 (Given - Provider: Sera Matos RN) LORazepam (ATIVAN) tablet 2 mg (COMPLETED) 2 mg, Oral, Once, On Tue01/22/25 at 1046, For 1 dose 1047 (Given - Provider: Ambika Abbott RN) LORazepam (ATIVAN) tablet 2 mg (COMPLETED) 2 mg, Oral, Once, On Tue01/22/25 at 1454, For 1 dose 1504 (Given - Provider: Glo Grubbs RN) LORazepam (ATIVAN) tablet 2 mg (COMPLETED) 2 mg, Oral, Once, On Tue01/23/25 at 0104, For 1 dose 0108 (Given - Provider: Felix Cruz RN) magnesium hydroxide (MILK OF MAGNESIA) 2400 mg/30 mL oral suspension 15 mL (COMPLETED) 15 mL, Oral, Once, On Tue01/23/25 at 0338, For 1 dose 0341 (Given - Provider: Felix Cruz RN) midazolam (VERSED) injection 2 mg (COMPLETED) 2 mg, Intramuscular, Once, On Tue01/23/25 at 2346, For 1 dose 2351 (Given - Provider: Rafat Noel RN) OLANZapine (ZyPREXA ZYDIS) orally disintegrating tablet 5 mg (COMPLETED) 5 mg, Oral, Once, On Tue01/23/25 at 1930, For 1 dose 1931 (Given - Provider: Rafat Noel RN) sennosides (SENNA,SENOKOT) tablet 8.6 mg 8.6 mg, Oral, At bedtime, First dose (after last modification) on Tue01/23/25 at 1448 1453 (Given - Provider: Sera Matos RN) 2100 (Due) valACYclovir (VALTREX) tablet 1,000 mg 1,000 mg, Oral, Daily, Indications: Herpes Simplex Virus Meningitis, First dose on Tue01/23/25 at 0900, Look-alike / Sound-alike Medication 0933 (Hold - Provider: Kat Miles RN - Reason: Patient Sleeping)1024 (Given - Provider: Kat Miles RN) 0849 (Given - Provider: Aisha Aaron, JACOB) PRN Medication Order 01/22/2025 01/23/2025 01/24/2025 gabapentin (NEURONTIN) capsule 300 mg 300 mg, Oral, At bedtime PRN, back pain, Starting on Tue01/22/25 at 2205 1933 (Given - Provider: Rafat Noel RN) hydrOXYzine HCl tablet 50 mg 50 mg, Oral, 3 times daily PRN, anxiety, Starting on Tue01/24/25 at 1103, Look-alike / Sound-alike Medication LORazepam (ATIVAN) tablet 0.5 mg 0.5 mg, Oral, Daily PRN, anxiety, Starting on Tue01/22/25 at 2205 1024 (Given - Provider: Kat Miles RN) 0854 (Given - Provider: Aisha Aaron RN) polyethylene glycol 3350 (MIRALAX) powder for oral solution 17 g packet 17 g 17 g, Oral, Daily PRN, constipation, Starting on Tue01/24/25 at 0907, Stir the powder in 4-8 oz of beverage until completely dissolved. documented in this encounter Care Teams Kennel Assistant Relationship Specialty Start Date End Date Cesar Grullon MD [address] [facility], [address] [place] [address] PCP - General Family Medicine 04/22/23 Sara Viramontes MD [address] [place] [phone] Physician Hematology and Oncology 01/28/23 Violet Salguero, RN Registered Nurse Medical Oncology 01/28/23 Jim Alfredo DO [address] [place] [address] Surgeon General Surgery 02/03/23 Romelia Rodriguez LPN [facility] Nurse 03/12/24 Pepper Lieberman NP [address] [address] Nurse Practitioner Family Medicine 12/04/24 documented as of this encounter
--- OUTSIDE RECORDS SUMMARY | 2025-01-24 17:00 | XMS_ITS | Encounter Summary ---
Author Organization [facility] Address [address] [place] [address] Care Team Providers Care Financial Operations Clerk Name Role Phone Sara Viramontes MD Unavailable Violet Salguero RN Unavailable Unavailable Jim Alfredo DO Unavailable [phone] Cesar Grullon MD Primary Care Provider [phone] Romelia Rodriguez LPN Unavailable UnavailPepper Patton CAREER GUIDANCE COUNSELOR Unavailable [phone] Reason for Visit * Diagnostic Imaging (Routine) - Authorized Specialty Diagnoses / Procedures Referred By Contac t Referred To Contact Radiology Diagnoses Hepatocellular carcinoma (HCC) Procedures CT abdomen with and without contrast Cesar Grullon MD 500 [facility], [address] [place] [address] Phone: tel: fax: Referral ID Status Reason Start Date Expiration Date V isits Requested Visits Authorized [id number] Authorized 08/28/2024 08/28/2026 1 1 Encounter Details Date Type Department Care Team (Late st Contact Info) Description 01/24/2025 5:00 PM EDT Hospital Encounter [facility] - [address] [phone] Cesar Grullon MD 500 [facility], [address] [place] [address] Social History Tobacco Use Types Packs/Day Years Used Date Smoking Tobacco: Never Smokeless Tobacco: Never Alcohol Use Standard Drinks/Week Comments No 0 (1 standard drink = 0.6 oz pur e alcohol) Housing Stability - SDOH Screener Answer Date Recorded What is your living situation today? Steady hous ing 08/17/2024 Do you need help with Housing/[facility] resources? Not on file 08/17/2024 Patient indicated [...] Date Recorded PHQ-9 Total Score 3 08/17/2024 [place] Depression Scale Score Not o n file [...] phone, visiting friends or family, going to mosque or club meetings) No 08/17/2024 Patient indicated no issues from the most recent THRIVE questionnaire Not on file 08/17/2024 Adolescent Depression Answer Date Recor ded PHQ-9 Total Score 3 08/17/2024 [place] Depression Scale Score Not o n file [...] AM EDT documented as of this encounter Plan of Treatment Upcoming Encounters Date Type Department Care Team (Late st Contact Info) Description 02/05/2025 3:00 PM EDT Lab [facility] [address] [place] [address] 02/21/2025 1:40 PM EDT [facility] 500 [place] [address] Cesar Grullon MD [address] [address] 04/16/2025 3:10 PM EST Office Visit [facility] [address] [place] [address] Bear Park PA [address] [place] [address] Scheduled Orders Name Type Priority Associated Diagnoses Orde r Schedule CT abdomen with and without contrast Imaging Routine Hepatocellular carcinoma (HCC) 1 Occurrences starting 08/28/2024 until 08/28/2026 documented as of this encounter Visit Diagnoses Not on filedocumented in this encounter Care Teams Financial Operations Clerk Relationship Specialty Start Date End Date Cesar Grullon MD [address] [address] PCP - General Family Medicine 04/22/23 Sara Viramontes MD [address] [place] [address] Physician Hematology and Oncology 01/28/23 Violet Salguero, RN Registered Nurse Medical Oncology 01/28/23 Jmi Alfredo DO [address] [place] [address] Surgeon General Surgery 02/03/23 Romelia Rodriguez LPN CCM Nurse 03/12/24 Pepper Lieberman, CAREER GUIDANCE COUNSELOR [address] [address] Nurse Practitioner Family Medicine 12/04/24 documented as of this encounter
--- OUTSIDE RECORDS SUMMARY | 2025-01-24 19:32 | XMS_ITS | Encounter Summary ---
Author Organization [facility] Address [address] [place] [address] Care Team Providers Care Sales Attendant Name Role Phone Sara Viramontes MD Unavailable Violet Salguero RN Unavailable Unavailable Jim Alfredo DO Unavailable [phone] Cesar Grullon MD Primary Care Provider [phone] Romelia Rodriguez LPN Unavailable UnavailPepper Patton LABORATORY EQUIPMENT INSTALLER Unavailable [phone] Reason for Visit * Reason Comments Orders Encounter Details Date Type Department Care Team (Late st Contact Info) Description 01/16/2025 Telephone [facility] [address] [place] [address] Cesar Grullon MD 500 [facility], [address] [place] [address] Orders Social History Tobacco Use Types Packs/Day Years Used Date Smoking Tobacco: Never Smokeless Tobacco: Never Alcohol Use Standard Drinks/Week Comments No 0 (1 standard drink = 0.6 oz pur e alcohol) Housing Stability - SDOH Screener Answer Date Recorded What is your living situation today? Steady hous ing 08/17/2024 Do you need help with Housing/[facility] resources? Not on file 08/17/2024 Patient indicated [...] Date Recorded PHQ-9 Total Score 3 08/17/2024 [place] Depression Scale Score Not o n file [...] phone, visiting friends or family, going to christianity or club meetings) No 08/17/2024 Patient indicated no issues from the most recent THRIVE questionnaire Not on file 08/17/2024 Adolescent Depression Answer Date Recor ded PHQ-9 Total Score 3 08/17/2024 [place] Depression Scale Score Not o n file [...] AM EDT documented as of this encounter Miscellaneous Notes * Telephone Encounter - Guerline Wisdom RN - 01/18/2025 11:47 AM EDT Patient aware/ CPE scheduled. * Telephone Encounter - Kevin Perales - 01/16/2025 4:03 PM EDT Copied from [facility] #[id number]. Topic: Incoming Call for Office - Sent to Practice >> Jan 16, 2025 4:00 PM Kevin Lynch wrote: Incoming request from: Pt Requested order (s) : Testosterone blood test DX/ Reasoning/ Symptoms: Pt stated that he has been taking two minerals, 9 mg of boron and tongkat ali and he would like to retest his testosterone levels since taking it. To Be sent to: [place] Fax number: - Future appt with PCP office: - Additional information if needed: Pt would like a call once this is placed. For Service Center Use Only: REASON FOR CALL: ORDERS Any requests for routine and non routine orders, as well as DME. documented in this encounter Plan of Treatment Upcoming Encounters Date Type Department Care Team (Late st Contact Info) Description 02/05/2025 3:00 PM EDT Lab [facility] [address] [place] [phone] 02/21/2025 1:40 PM EDT [facility] [address] [place] [address] Cesar Grullon MD [address] [place] [address] 04/16/2025 3:10 PM EST [facility] [address] [place] [address] Bear Park PA [address] [place] [address] documented as of this encounter Visit Diagnoses Diagnosis Low testosterone in male- Primary documented in this encounter Care Teams Sales Attendant Relationship Specialty Start Date End Date Cesar Grullon MD [address] [place] [address], [facility] [address] [place] [address] PCP - General Family Medicine 04/22/23 Sara Viramontes MD [address] [place] [address] Physician Hematology and Oncology 01/28/23 Violet Salguero, RN Registered Nurse Medical Oncology 01/28/23 Jim Alfredo DO [address] [place] [address] Surgeon General Surgery 02/03/23 Romelia Rodriguez LPN [facility] Nurse 03/12/24 Pepper Lieberman NP 500 [facility] [address] [place] [address] Nurse Practitioner Family Medicine 12/04/24 documented as of this encounter
--- OUTSIDE RECORDS SUMMARY | 2025-01-24 19:32 | XMS_ITS | Encounter Summary ---
Author Organization [facility] Address [address] [place] [address] Care Team Providers Care Freight Claim Investigator Name Role Phone Sara Viramontes MD Unavailable Violet Salguero RN Unavailable Unavailable Jim Alfredo DO Unavailable [phone] Cesar Grullon MD Primary Care Provider Romelia Rodriguez LPN Unavailable UnavailPepper Patton WASH HOUSE SUPERVISOR Unavailable [phone] Reason for Visit * Reason Onset Date Comments Medication Problem 09/27/2024 Encounter Details Date Type Department Care Team (Late st Contact Info) Description 09/27/2024 Telephone [facility] [address] [place] [address] Cesar Grullon MD 500 [facility], [address] [place] [address] Medication Problem Social History Tobacco Use Types Packs/Day Years Used Date Smoking Tobacco: Never Smokeless Tobacco: Never Alcohol Use Standard Drinks/Week Comments No 0 (1 standard drink = 0.6 oz pur e alcohol) Housing Stability - SDOH Screener Answer Date Recorded What is your living situation today? Steady hous ing 08/17/2024 Do you need help with Housing/Jail resources? Not on file 08/17/2024 Patient indicated [...] Date Recorded PHQ-9 Total Score 3 08/17/2024 [place] Depression Scale Score Not o n file [...] phone, visiting friends or family, going to jew or club meetings) No 08/17/2024 Patient indicated no issues from the most recent THRIVE questionnaire Not on file 08/17/2024 Adolescent Depression Answer Date Recor ded PHQ-9 Total Score 3 08/17/2024 [place] Depression Scale Score Not o n file [...] encounter Miscellaneous Notes * Telephone Encounter - Jennifer Meza LPN - 09/27/2024 12:17 PM EDT Spoke with patient aware and in agreement with plan He will call for lab appt after beginning medication to coordinate appropriate timing of appt * Telephone Encounter - Tania Potts - 09/27/2024 12:09 PM EDT Who called the caller: nurse Jennifer whipple If they know, reason for the received call: What is the best call back number: [phone] When are they available for a call: now For Service Center Use Only: CALL REASON: RETURNING CALL / OR ORIGINAL TE REASON IF ADDING TO TE. Please attempt to Warm transfer when TE has original caller information, Document in TE when warm transferred. * Telephone Encounter - Jennifer Meza LPN - 09/27/2024 12:06 PM EDT Rx sent, no refills Needs to complete labs after this prescription Lvm for return call * Telephone Encounter - Rosalind Gomez - 09/27/2024 10:37 AM EDT Has the patient contacted the pharmacy to request refill? Yes [x] or No [] If no, please explain If no, instruct to call Pharmacy for future refills. Is this 30 or 90 Day Supply?: [] 30 day or [x] 90 day Did you confirm the correct pharmacy was listed under Medications & Orders? Yes [x] or No [] If No, please change before routing Additional Information: requesting additional fills with medication documented in this encounter Plan of Treatment Upcoming Encounters Date Type Department Care Team (Late st Contact Info) Description 02/05/2025 3:00 PM EDT Lab [facility] [address] [place] [address] 02/21/2025 1:40 PM EDT Office Visit [facility] [address] [place] [address] Cesar Grullon MD 500 [facility], [address] [place] [address] 04/16/2025 3:10 PM EST Office Visit [facility] [address] [place] [address] Bear Park PA [address] [place] [address] documented as of this encounter Visit Diagnoses Diagnosis Low testosterone documented in this encounter Care Teams Freight Claim Investigator Relationship Specialty Start Date End Date Cesar Grullon MD 500 [facility], [address] [place] [address] PCP - General Family Medicine 04/22/23 Sara Viramontes MD [address] [place] [address] Physician Hematology and Oncology 01/28/23 Violet Salguero, RN Registered Nurse Medical Oncology 01/28/23 Jim Alfredo DO [address] [place] [address] Surgeon General Surgery 02/03/23 Romelia Rodriguez LPN [facility] Nurse 03/12/24 Pepper Lieberman, WASH HOUSE SUPERVISOR 500 [facility] [address] [place] [address] Nurse Practitioner Family Medicine 12/04/24 documented as of this encounter
--- OUTSIDE RECORDS SUMMARY | 2025-01-24 19:32 | XMS_ITS | Encounter Summary ---
Author Organization [facility] Address [address] [place] [address] Care Team Providers Care Floor Specialist Name Role Phone Sara Viramontes MD Unavailable Violet Salguero RN Unavailable Unavailable Jim Alfredo DO Unavailable [phone] Cesar Grullon MD Primary Care Provider [phone] Romelia Rodriguez LPN Unavailable UnavailPepper Patton [address]ROL Unavailable [phone] Encounter Details Date Type Department Care Team (Late st Contact Info) Description 05/31/2023 Pharmacy Visit [facility] [address] [place] [address] Social History Tobacco Use Types Packs/Day Years Used Date Smoking Tobacco: Never Smokeless Tobacco: Never Alcohol Use Standard Drinks/Week Comments No 0 (1 standard drink = 0.6 oz pur e alcohol) Sex and Gender Information Value Date Recorded Sex Assigned at Male 03/07/2024 3:57 PM EDT Legal Sex Male 1:57 PM EST Gender Identity Male 03/07/2024 3:57 PM EDT Sexual Orientation Straight 08/14/2024 10 :23 AM EDT documented as of this encounter Plan of Treatment Upcoming Encounters Date Type Department Care Team (Late Contact Info) Description 02/05/2025 3:00 PM EDT Lab [facility] [address] [place] [phone] 02/21/2025 1:40 PM EDT Office Visit [facility] [address] [place] [address] Cesar Grullon MD 500 [facility], [address] [address] 04/16/2025 3:10 PM EST Office Visit [facility] [address] [place] [address] Bear [place] PA [address] [place] [address] documented as of this encounter Visit Diagnoses Not on filedocumented in this encounter Additional Health Concerns Infection Onset Date Last Indicated Resolved Time PUI COVID 05/31/2023 05/31/2023 05/31/2023 12:5 5 PM EST documented as of this encounter Care Teams Floor Specialist Relationship Specialty Start Date End Date Cesar Grullon MD [address] [place] [address] PCP - General Family Medicine 04/22/23 Sara Viramontes MD [address] [place] [address] Physician Hematology and Oncology 01/28/23 Violet Salguero, JACOB Registered Nurse Medical Oncology 01/28/23 Jim Alfredo DO [address] [place] [address] Surgeon General Surgery 02/03/23 Romelia Rodriguez LPN [facility] Nurse 03/12/24 Pepper Lieberman, [address] [place] [address] Nurse Practitioner Family Medicine 12/04/24 documented as of this encounter
--- OUTSIDE RECORDS SUMMARY | 2025-01-24 19:32 | XMS_ITS | Encounter Summary ---
Author Organization [facility] Address [address] [place] [address] Care Team Providers Care Director Of Investigations Name Role Phone Sara Viramontes MD Unavailable Violet Salguero RN Unavailable Unavailable Jim Alfredo DO Unavailable [phone] Cesar Grullon MD Primary Care Provider [phone] Romelia Rodriguez LPN Unavailable UnavailPepper Patton KRAFT MILL OPERATOR Unavailable [phone] Encounter Details Date Type Department Care Team (Late st Contact Info) Description 06/01/2023 Pharmacy Visit [facility] [address] [place] [address] Social History Tobacco Use Types [...] Info) Description 02/05/2025 3:00 PM EDT Lab [facility] [address] [place] [phone] 02/21/2025 1:40 PM EDT Office Visit [facility] [address] [place] [address] Cesar Grullon MD 500 [facility], [address] [address] 04/16/2025 3:10 PM EST Office Visit [facility] [address] [place] [address] Bear [place] PA [address] [place] [address] documented as of this encounter Visit Diagnoses Not on filedocumented in this encounter Care Teams Director Of Investigations Relationship Specialty Start Date End Date Cesar Grullon MD [address] [address] PCP - General Family Medicine 04/22/23 Sara Viramontes MD [address] [place] [address] Physician Hematology and Oncology 01/28/23 Violet Salguero, RN Registered Nurse Medical Oncology 01/28/23 Jim Alfredo DO [address] [place] [address] Surgeon General Surgery 02/03/23 Romelia Rodriguez LPN CCM Nurse 03/12/24 Pepper Lieberman, KRAFT MILL OPERATOR [address] [address] Nurse Practitioner Family Medicine 12/04/24 documented as of this encounter
--- OUTSIDE RECORDS SUMMARY | 2025-01-24 19:32 | XMS_ITS | Encounter Summary ---
Author Organization [facility] Address [address] [place] [address] Care Team Providers Care Stock Worker And Deliverer Name Role Phone Sara Viramontes MD Unavailable Violet Salguero RN Unavailable Unavailable Jim Alfredo DO Unavailable [phone] Cesar Grullon MD Primary Care Provider Romelia Rodriguez LPN Unavailable UnavailPepper Patton DAY CARE CENTER DIRECTOR Unavailable [phone] Reason for Visit * Reason Comments Medication Refill Encounter Details Date Type Department Care Team (Late st Contact Info) Description 09/21/2024 Refill [facility] [address] [place] [phone] Cesar Grullon MD 500 [facility], [address] [place], [place] [phone] Low testosterone Social History Tobacco Use Types Packs/Day Years Used Date Smoking Tobacco: Never Smokeless Tobacco: Never Alcohol Use Standard Drinks/Week Comments No 0 (1 standard drink = 0.6 oz pur e alcohol) Housing Stability - SDOH Screener Answer Date Recorded What is your living situation today? Steady hous ing 08/17/2024 Do you need help with Housing/[facility] resources? Not on file 08/17/2024 Patient indicated [...] Date Recorded PHQ-9 Total Score 3 08/17/2024 [place] Depression Scale Score Not o n file [...] phone, visiting friends or family, going to taoism or club meetings) No 08/17/2024 Patient indicated no issues from the most recent THRIVE questionnaire Not on file 08/17/2024 Adolescent Depression Answer Date Recor ded PHQ-9 Total Score 3 08/17/2024 [place] Depression Scale Score Not o n file [...] Info) Description 02/05/2025 3:00 PM EDT Lab [facility] [address] [place] [address] 02/21/2025 1:40 PM EDT Office Visit [facility] [address] [place] [address] Cesar Grullon MD 500 [facility], [address] [place] [address] 04/16/2025 3:10 PM EST Office Visit [facility] [address] [place] [address] Bear Park PA [address] [place] [address] documented as of this encounter Visit Diagnoses Diagnosis Low testosterone documented in this encounter Care Teams Stock Worker And Deliverer Relationship Specialty Start Date End Date Cesar Grullon MD 500 [facility], [address] [place] [address] PCP - General Family Medicine 04/22/23 Sara Viramontes MD [address] [place] [address] Physician Hematology and Oncology 01/28/23 Violet Salguero, JACOB Registered Nurse Medical Oncology 01/28/23 Jim Alfredo DO [address] [place] [address] Surgeon General Surgery 02/03/23 Romelia Rodriguez LPN [facility] Nurse 03/12/24 Pepper Lieberman, DAY CARE CENTER DIRECTOR 500 [facility] [address] [place] [address] Nurse Practitioner Family Medicine 12/04/24 documented as of this encounter
--- OUTSIDE RECORDS SUMMARY | 2025-01-24 19:32 | XMS_ITS | Encounter Summary ---
Author Organization [facility] Address [address] [place] [address] Care Team Providers Care [employer] Manufacturing Set Up Technician Name Role Phone Sara Viramontes MD Unavailable Violet Salguero RN Unavailable Unavailable Jim Alfredo DO Unavailable [phone] Cesar Grullon MD Primary Care Provider Romelia Rodriguez LPN Unavailable UnavailPepper Patton SVP RESEARCH & EBUSINESS OPERATIONS Unavailable [phone] Reason for Visit * Reason Comments Advice Only Encounter Details Date Type Department Care Team (Late st Contact Info) Description 12/25/2024 Telephone [facility] [address] [place] [address] Cesar Grullon MD 500 [facility], [address] [place] [address] Advice Only Social History Tobacco Use Types Packs/Day Years Used Date Smoking Tobacco: Never Smokeless Tobacco: Never Alcohol Use Standard Drinks/Week Comments No 0 (1 standard drink = 0.6 oz pur e alcohol) Housing Stability - SDOH Screener Answer Date Recorded What is your living situation today? Steady hous ing 08/17/2024 Do you need help with Housing/Skilled Nursing resources? Not on file 08/17/2024 Patient indicated [...] Date Recorded PHQ-9 Total Score 3 08/17/2024 [place] Depression Scale Score Not o n file [...] phone, visiting friends or family, going to pentecostal or club meetings) No 08/17/2024 Patient indicated no issues from the most recent THRIVE questionnaire Not on file 08/17/2024 Adolescent Depression Answer Date Recor ded PHQ-9 Total Score 3 08/17/2024 [place] Depression Scale Score Not o n file [...] Telephone Encounter - Guerline Wisdom RN - 12/25/2024 1:21 PM EDT Patient aware Lab appt scheduled. * Telephone Encounter - Cesar Grullon MD - 12/25/2024 1:15 PM EDT Refilled Clomid daily. Check testosterone 6 weeks. Patient needs to schedule and keep an appointment with Urology. * Telephone Encounter - Tessa Cannon - 12/25/2024 12:50 PM EDT Copied from [facility] #[id number]. Topic: Incoming Call for Office >> Dec 25, 2024 12:46 PM Tessa C wrote: Pt states urology didn't have apt until February, pt declined apt ,, pt requesting to speak wit Dr Grullon regarding staying on comid, documented in this encounter Plan of Treatment Upcoming Encounters Date Type Department Care Team (Late st Contact Info) Description 02/05/2025 3:00 PM EDT [facility] [address] [place] [phone] 02/21/2025 1:40 PM EDT Office Visit [facility] [address] [place] [address] Cesar Grullon MD [address] [place] [address] 04/16/2025 3:10 PM EST Office Visit [facility] [address] [place] [address] Bear Park PA [address] [place] [address] Scheduled Orders Name Type Priority Associated Diagnoses Orde r Schedule Testosterone Lab Routine Low testosterone in male 1 Occurrences starting 12/25/2024 until 03/27/2026 documented as of this encounter Visit Diagnoses Diagnosis Low testosterone in male- Primary documented in this encounter Care Teams Spring Manufacturing Set Up Technician Relationship Specialty Start Date End Date Cesar Grullon MD [address] [place] [address], [facility] [address] [place] [address] PCP - General Family Medicine 04/22/23 Sara Viramontes MD [address] [place] [address] Physician Hematology and Oncology 01/28/23 Violet Salguero, RN Registered Nurse Medical Oncology 01/28/23 Jim Alfredo DO [address] [place] [address] Surgeon General Surgery 02/03/23 Romelia Rodriguez LPN [facility] Nurse 03/12/24 Pepper Lieberman, SVP RESEARCH & EBUSINESS OPERATIONS 500 [facility] [address] [place] [address] Nurse Practitioner Family Medicine 12/04/24 documented as of this encounter
--- OUTSIDE RECORDS SUMMARY | 2025-01-24 19:32 | XMS_ITS | Encounter Summary ---
Author Organization [facility] Address [address] [place] [address] Care Team Providers Care Rn School Name Role Phone Lenin Dela Cruz MD Primary Care Provider [phone] Sara Viramontes MD Unavailable Violet Salguero RN Unavailable Unavailable Jim Alfredo DO Unavailable [phone] Cesar Grullon MD Primary Care Provider Cesar Grullon MD Primary Care Provider [phone] Romelia Rodriguez LPN Unavailable UnavailPepper Patton PLUSH DRESSER Unavailable [phone] Encounter Details Date Type Department Care Team (Late st Contact Info) Description 02/21/2023 Procedure Pass [facility] [address] [place] [address] Social History Tobacco Use Types [...] PM EDT Lab [facility] [address] [place] [address] 02/21/2025 1:40 PM EDT Office Visit [facility] [address] [place] [address] Cesar Grullon MD 500 [facility], [address] [address] 04/16/2025 3:10 PM EST Office Visit [facility] [address] [place] [address] [place] [address] [place] [address] documented as of this encounter Visit Diagnoses Not on filedocumented in this encounter Additional Health Concerns Infection Onset Date Last Indicated Resolved Time PUI COVID 05/31/2023 05/31/2023 05/31/2023 12:5 5 PM EST documented as of this encounter Care Teams Rn School Relationship Specialty Start Date End Date Lenin Dela Cruz MD [address] [place] [address] PCP - General Family Medicine 04/12/18 04/06/23 Cesar Grullon MD [address] [place] [address], [facility] [address] [place] [address] PCP - General Family Medicine 04/07/23 04/19/23 Cesar Grullon MD [address] [place] [address], [facility] [address] [place] [address] PCP - General Family Medicine 04/22/23 Sara Viramontes MD [address] [place] [address] Physician Hematology and Oncology 01/28/23 Violet Salguero, RN Registered Nurse Medical Oncology 01/28/23 Jim Alfredo DO [address] [place] [address] Surgeon General Surgery 02/03/23 Romelia Rodriguez LPN [facility] Nurse 03/12/24 Pepper Lieberman, PLUSH DRESSER [address] [facility] [address] [place] [address] Nurse Practitioner Family Medicine 12/04/24 documented as of this encounter
--- OUTSIDE RECORDS SUMMARY | 2025-01-24 19:32 | XMS_ITS | Encounter Summary ---
Author Organization [facility] Address [address] [place] [address] Care Team Providers Care Osha Inspector Name Role Phone Sara Viramontes MD Unavailable Violet Salguero RN Unavailable Unavailable Jim lAfredo DO Unavailable Cesar Grullon MD Primary Care Provider [phone] Romelia Rodriguez LPN Unavailable UnavailPepper Patton WRAPPER OFF Unavailable [phone] Reason for Visit * Reason Comments Medication Refill Encounter Details Date Type Department Care Team (Late st Contact Info) Description 11/02/2024 Refill [facility] [address] [place] [phone] Cesar Grullon MD 500 [facility], [address] [place], [place] [phone] Low testosterone Social History Tobacco Use Types Packs/Day Years Used Date Smoking Tobacco: Never Smokeless Tobacco: Never Alcohol Use Standard Drinks/Week Comments No 0 (1 standard drink = 0.6 oz pur e alcohol) Housing Stability - SDOH Screener Answer Date Recorded What is your living situation today? Steady hous ing 08/17/2024 Do you need help with Housing/Long-Term resources? Not on file 08/17/2024 Patient indicated [...] Date Recorded PHQ-9 Total Score 3 08/17/2024 [place] Depression Scale Score Not o n file [...] phone, visiting friends or family, going to latter day or club meetings) No 08/17/2024 Patient indicated no issues from the most recent THRIVE questionnaire Not on file 08/17/2024 Adolescent Depression Answer Date Recor ded PHQ-9 Total Score 3 08/17/2024 [place] Depression Scale Score Not o n file [...] encounter Miscellaneous Notes * Telephone Encounter - Uma Salcedo - 11/05/2024 1:49 PM EDT Reviewed with nursing, the patient already had labs drawn. * Telephone Encounter - Dunia Bonner MD - 11/05/2024 7:26 AM EDT Needs labs done from Dr Grullon * Telephone Encounter - Jordan Mcmullen RN - 11/03/2024 3:04 PM EDT Last Visit in department: 08/17/2024 Next Visit in department: NO FUTURE OV Next Appointment Due by: 09/19/2024 Last Annual Visit in department: 08/17/2024 No Shows in department since Last Appt: 0 Number of Cancellations since Last Appt: 1 Pending CLOMID 50 MG tablet [Pharmacy Med Name: CLOMID 50MG TABLETS] The current prescription flagged protocol because Other NO FUTURE OV with cancellation by pt 09/19/24. Previous labs requested have no been complete: previously refused for this reason. Last script ordered on 09/28/24 for (quantity/refill). The attached script pended for (quantity/refill). Actions taken: routed to commercial front load operator for appointment and routed to provider documented in this encounter Plan of Treatment Upcoming Encounters Date Type Department Care Team (Late st Contact Info) Description 02/05/2025 3:00 PM EDT Lab [facility] [address] [place] [address] 02/21/2025 1:40 PM EDT Office Visit [facility] [address] [place] [address] Cesar Grullon MD [address] [address] 04/16/2025 3:10 PM EST Office Visit [facility] [address] [place] [address] [place] [address] [place] [address] documented as of this encounter Visit Diagnoses Diagnosis Low testosterone documented in this encounter Care Teams Osha Inspector Relationship Specialty Start Date End Date Cesar Grullon MD 500 [facility], [facility] [address] [place] [address] PCP - General Family Medicine 04/22/23 Sara Viramontes MD [address] [place] [address] Physician Hematology and Oncology 01/28/23 Violet Salguero, RN Registered Nurse Medical Oncology 01/28/23 Jim Alfredo DO [address] [place] [address] Surgeon General Surgery 02/03/[address] [facility] Nurse 03/12/24 Pepper Lieberman, WRAPPER OFF [address] [facility] [address] [place] [address] Nurse Practitioner Family Medicine 12/04/24 documented as of this encounter
--- OUTSIDE RECORDS SUMMARY | 2025-01-24 19:32 | XMS_ITS | Encounter Summary ---
Author Organization [facility] Address [address] [place] [address] Care Team Providers Care Cash Management Associate Name Role Phone Lenin Dela Cruz MD Primary Care Provider [phone] Sara Viramontes MD Unavailable Violet Salguero RN Unavailable Unavailable Jim Alfredo DO Unavailable [phone] Cesar Grullon MD Primary Care Provider [phone] Cesar Grullon MD Primary Care Provider [phone] Romelia Rodriguez LPN Unavailable UnavailPepper Patton PLASTIC PRESS OPERATOR Unavailable [phone] Encounter Details Date Type Department Care Team (Late st Contact Info) Description 03/31/2023 Pharmacy Visit [facility] [address] [place] [address] Social History Tobacco Use Types [...] PM EDT Lab [facility] [address] [place] [address] 02/21/2025 1:40 PM EDT Office Visit [facility] [address] [place] [address] Cesar Grullon MD 500 [facility], [address] [address] 04/16/2025 3:10 PM EST Office Visit [facility] [address] [place] [address] [place] [address] [place] [address] documented as of this encounter Visit Diagnoses Not on filedocumented in this encounter Additional Health Concerns Infection Onset Date Last Indicated Resolved Time PUI COVID 05/31/2023 05/31/2023 05/31/2023 12:5 5 PM EST documented as of this encounter Care Teams Cash Management Associate Relationship Specialty Start Date End Date Lenin Dela Cruz MD [address] [place] [address] PCP - General Family Medicine 04/12/18 04/06/23 Cesar Grullon MD 500 [facility], [facility] [address] [place] [address] PCP - General Family Medicine 04/07/23 04/19/23 Cesar Grullon MD 500 [facility], [facility] [address] [place] [address] PCP - General Family Medicine 04/22/23 Sara Viramontes MD [address] [place] [address] Physician Hematology and Oncology 01/28/23 Violet Salguero, RN Registered Nurse Medical Oncology 01/28/23 Jim Alfredo DO [address] [place], [place] [phone] Surgeon General Surgery 02/03/23 Romelia Rodriguez LPN [facility] Nurse 03/12/24 Pepper Lieberman, PLASTIC PRESS OPERATOR [address] [facility] [address] [place] [address] Nurse Practitioner Family Medicine 12/04/24 documented as of this encounter
--- OUTSIDE RECORDS SUMMARY | 2025-01-24 19:32 | XMS_ITS | Patient Health Record ---
Author Organization [facility] Address [address] [place] [address] Care Team Providers Care Technical Agronomist Name Role Phone NHI BELL MD, MD Allergies Allergen (clinical drug ingredient) Drug/Non Drug Allergy documented on EMR Reaction Allergy Type Onset Date Status SEASONAL ALLERGIES (uncoded) Unknown Allergy Active Reason For Referral No Information Medications Medication SIG (Take, Route, Frequency, Duration) Notes Start Date End Date Status Tamsulosin HCl 0.4 MG 1 capsule 30 minutes after the same meal each day Orally Once a day; Duration: 90 days Active PARoxetine HCl 40 MG TAKE 1 TABLET BY MOUTH EVERY DAY IN THE MORNING; Duration: 90 Active Prazosin HCl 1 MG 1 capsule at bedtime Orally tid; Duration: 90 days Not-Taking Levothyroxine Sodium 50 MCG TAKE 1 TABLET BY MOUTH EVERY DAY; Duration: 90 Active Omeprazole 20 MG 1 capsule 30 minutes before morning meal Orally Once a day; Duration: 90 day(s) Not-Taking Bactrim DS 800-160 MG 1 tablet Orally Twice a day; Duration: 10 day(s) Not-Taking Magnesium Citrate 1.745 GM/30ML 150 ml Orally once a day; Duration: 7 day(s) Not-Taking Gabapentin 600 MG 1 capsule Orally three times a day; Duration: 30 day(s) Not-Taking hydrOXYzine Pamoate 25 MG 1-2 capsule as needed for anxiety Orally every 8 hrs; Duration: 30 day(s) Not-Taking oxyCODONE HCl 5 MG 1 tablet as needed Orally every 6 hrs; Duration: 30 days Patient with recent fall and neck and rib fractures 08/19/2022 Not-Taking traZODone HCl 50 MG 1 tablet at bedtime as needed Orally Once a day; Duration: 30 days Not-Taking OLANZapine 20 MG Take 1 tablet(s) by mouth daily Oral Olanzapine 20mg Tablet Take 1 tablet(s) by mouth daily 04/14/2018 Active Abilify 10 MG Take 1 tablet(s) by mouth daily Oral Abilify 30mg Tablet Take 1 tablet(s) by mouth daily 10/05/2019 Not-Taking valACYclovir HCl 1 GM TAKE 1 TABLET BY MOUTH DAILY NEEDED; Duration: 30 Active Ativan 1 MG 1 tablet at bedtime as needed Orally every 6 hrs; Duration: 30 days 07/28/2022 Not-Taking Mirtazapine 45 MG Take 1 tablet(s) by mouth at bedtime Oral Mirtazapine 45mg Tablet Take 1 tablet(s) by mouth at bedtime 07/03/2019 Not-Taking traZODone HCl 50 MG 1 tab qhs Oral Trazodone HC l 50mg Tablet 1 tab qhs 05/24/2018 Not-Taking Immunizations Vaccine Route Administration Date Status Comme nts Tdap IM Intramuscular 03/28/2007 Administered Td (adult), adsorbed IM Intramuscular 08/16/2018 Administe red Shingrix Unknown 02/05/2021 Administered pharmacy Pneumococcal polysaccharide PPV23 IM Intramuscular 08/16/2018 Administered Pneumococcal polysaccharide PPV23 Unknown 02/05/2021 Administered pharmacy Pneumococcal conjugate PCV 13 IM Intramuscular 04/17/2021 Administered OFFICE NOTE Influenza, unspecified formulation (CPT 61441 Inactive) Unknown 03/13/2020 Administered PHARMACY Influenza, seasonal, injectable, preservative free, 3 yrs and above IM Intramuscular 03/25/2014 Administered Influenza, seasonal, injectable, preservative free, 3 yrs and above IM Intramuscular 01/19/2017 Administered Influenza, seasonal, injectable, preservative free, 3 yrs and above IM Intramuscular 04/14/2018 Administered Influenza, seasonal, injectable, preservative free, 3 yrs and above Unknown 07/03/2019 Administered Influenza, high dose seasonal Unknown 02/20/2021 Administered [facility] [place], [place]. [id number] Influenza, high dose seasonal IM Intramuscular 03/09/2022 Administered OFFICE SUPPLY covid-19 Unknown 08/03/2020 Administered P[facility]ZER IN [facility] BOTH SHOTS 08-24-20 covid-19 Unknown 03/26/2021 Administered 4 PFIZERS ONLY [facility] IN [place], [place] PFIZER HAD 4TH PFIZER SHOT ? ON THE DATE. 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) Encysted hydrocele (603.0) 014 Problem resolved confirmed Dewey-[id number] [id number]- Problem Adhesive capsulitis of shoulder (275876744) Adhesive capsulitis of shoulder (726.0) 010 Problem resolved confirmed Dewey-[id number] 9755- Problem Fever (549553057) Fever, unspecified (780.60) 009 Problem resolved confirmed Dewey-112 9755- Problem Diarrhea (52425264) Diarrhea (787.91) 017 Problem resolved confirmed Dewey-[id number] 9755- Problem Anemia (617933890) Anemia, unspecified (D64.9) 015 Active confirmed Dewey-112 9755- Problem 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) 014 Active confirmed Dewey-112 9755- Problem Inhalant abuse (48372173) Inhalant abuse, uncomplicated (F18.10) 017 Active confirmed Dewey-112 9755- Problem Moderate major depression, single episode (99515620) Major depressive disorder, single episode, moderate (F32.1) 015 Active w/u pending Problem 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) 015 Active confirmed Dewey-112 9755- Problem Chronic pain (25638393) Other chronic pain (G89.29) Active confirmed Problem Atrial fibrillation (77691296) Unspecified atrial fibrillation (I48.91) 018 Active confirmed Dewey-112 9755- Problem Pain in right foot (292279627858030) Pain in right foot (M79.671) 015 Active confirmed Dewey-112 9755- Problem Pain in left foot (868170036163706) Pain in left foot (M79.672) 015 Active confirmed Dewey-112 9755- Problem Acute prostatitis (01994264) Acute prostatitis (N41.0) 018 Problem resolved confirmed Dewey-112 9755- Problem Lymphadenopathy (20538189) Enlarged lymph nodes, unspecified (R59.9) 018 Active confirmed Dewey-112 9755- Problem Sprain of deltoid ligament of ankle (22334081) Sprain of deltoid ligament of unspecified ankle, initial encounter (S93.429A) 018 Problem resolved confirmed Dewey-112 9755- Problem Adult health examination (384293807) Encounter for general adult medical examination without abnormal findings (Z00.00) 019 Problem resolved confirmed Dewey-112 9755- Problem Lower urinary tract symptoms due to benign prostatic hypertrophy (99231353057096) Benign prostatic hyperplasia with lower urinary tract symptoms (N40.1) Active confirmed Problem Anxiety (11936205) Anxiety (300.02) 05/24 018 Active confirmed Dewey-112 9755- Problem Erythema migrans (70321688) Erythema migrans (529.1) 012 Problem resolved confirmed Dewey-112 9755- Problem Knee pain (8655785470) Knee pain (719.46) 015 Problem resolved confirmed Dewey-112 9755- Problem Acute upper respiratory infection (73975896) Acute upper respiratory infection (465.8) 012 Problem resolved confirmed Dewey-112 9755- Problem Low back pain (083878584) Low back pain (724.2) 014 Active confirmed Dewey-112 9755- Problem Cellulitis and abscess of trunk (782125453) Cellulitis of the chest wall (682.2) 012 Problem resolved confirmed Dewey-112 9755- Problem Periumbilical pain (318623978) Mid-abdominal pain (789.05) 013 Problem resolved confirmed Dewey-112 9755- Problem Right upper quadrant pain (469703308) RUQ abdominal pain (789.01) 009 Problem resolved confirmed Dewey-112 9755- Problem Testosterone deficiency (use 257.2 instead) (259.8) 010 Problem resolved confirmed Dewey-112 9755- Problem Achilles tendonitis (25568906) Achilles tendonitis (726.71) 012 Problem resolved confirmed Dewey-112 9755- Problem Contusion of thigh (28195934) Bruise of quadriceps (924.00) 014 Problem resolved confirmed Dewey-112 9755- Problem Herpes simplex (21668962) Herpes simplex (054.9) 009 Problem resolved confirmed Dewey-112 9755- Problem Fatigue (81834257) Fatigue (780.79) 04/29 009 Problem resolved confirmed Dewey-112 9755- Problem Macrocytic anemia (42378654) Macrocytic anemia (281.9) 017 Active confirmed Dewey-112 9755- Problem Right upper quadrant pain (025099310) RUQ Abdominal Pain (789.07) 011 Problem resolved confirmed Dewey-112 9755- Problem Plantar fasciitis (865187987) Plantar fasciitis (728.71) 012 Problem resolved confirmed Dewey-112 9755- Problem Otitis media with effusion (90686110) Otitis media with effusion (381.4) 012 Problem resolved confirmed Dewey-112 9755- Problem Insomnia (995877760) Insomnia (307.41) 015 Problem resolved confirmed Dewey-112 9755- Problem Toxic effect of venom (45577578) Toxic effect of venom (snake, lizard, spider and tic) (989.5) 012 Problem resolved confirmed Dewey-112 9755- Problem Osteoarthritis of knee (061489299) Osteoarthritis of knee (715.16) 017 Active confirmed Dewey-112 9755- Problem Gastroesophageal reflux disease (078706000) GERD (530.81) 009 Problem resolved confirmed Dewey-112 9755- Problem Moderate major depression, single episode (30154713) Major depression, single episode, moderate (296.22) 009 Problem resolved confirmed Dewey-112 9755- Problem Epigastric pain (68353291) Epigastric abdominal pain (789.06) 008 Problem resolved confirmed Dewey-112 9755- Problem Hip pain (06265241) Hip pain (719.45) 016 Active confirmed Dewey-112 9755- Problem Acquired hypothyroidism (645254662) Acquired hypothyroidism (E03.9) Active confirmed Problem Anxiety (01691123) Anxiety (F41.9) Active confi rmed Problem Seizure (22931191) Seizure (R56.9) Active w/u p ending Problem Moderate major depression, single episode (75952240) Current moderate episode of major depressive disorder, unspecified whether recurrent (F32.1) Active confirmed Problem Chronic hepatitis C (441956187) Chronic hepatitis C (B18.2) Active confirmed Problem Primary malignant neoplasm of liver (45609869) Primary malignant neoplasm of liver (C22.8) Active w/u pending Plan Of Treatment Pending Test Test Name Order Date X ray : Hip, left 12/24/2021 Stool Culture 12/24/2021 Stool-C Difficile Toxin 12/24/2021 Stool-giardia antigen 12/24/2021 X ray : Foot, right 3v 01/08/2021 -ELECTROCARDIOGRAM, COMPLETE 08/29/2020 BASIC METABOLIC PANEL (02674) 10/08/2020 CBC (H/H, RBC, INDICES, WBC, PLT) (1759) 10/08/2020 VITAMIN B12 (927) 10/08/2020 PSA, TOTAL (5363) 10/08/2020 PSA, TOTAL (5363) 01/09/2021 PSA, TOTAL (5363) 11/05/2021 TSH W/REFLEX TO FT4 (12655) 10/08/2020 XR knee standing BI 12/05/2020 Hepatitis Acute Panel 01/19/2021 Insurance Providers Payer Name Payer Address Payer Phone Subscriber Number Group Number Insured Name Patient Relationship to Insured Coverage Start Date Coverage End Date MEDICARE PART B [address] [place] [id number] VASHTI OBRIEN Self - patient is the insured 1 [facility] [employer] [address] [place] [address] [id number] VASHTI OBRIEN Self - patient is the insured Medical (General) History Medical History History ICD Code Hep C Substance Abuse Hypothyroidism Depression Acute bronchitis (resolved 06/17/2008) Encysted hydrocele (resolved 07/02/2013) Adhesive capsulitis of shoulder (resolve d 06/18/2009) Fever, unspecified (resolved 05/19/2009) Diarrhea (resolved 10/22/2016) Acute prostatitis (resolved 08/03/2017) Sprain of deltoid ligament o f unspecified ankle, initial encounter (resolved 09/18/2017) Encounter for general adult medical examination without abnormal findings (resolved 08/30/2018) Erythema migrans (resolved 09/17/2011) Knee pain (resolved 06/01/2015) Acute upper respiratory infection (resol karina 06/21/2011) Cellulitis of the chest wall (resolved 0 07/18/2012) Mid-abdominal pain (resolved 07/17/2012) RUQ abdominal pain (resolved 04/18/2009) Testosterone deficiency (use 257.2 inste ad) (resolved 07/18/2012) Achilles tendonitis (resolved 11/10/2011 ) Bruise of quadriceps (resolved 4) Herpes simplex (resolved 04/18/2009) Fatigue (resolved 07/18/2012) RUQ Abdominal Pain (resolved 06/11/2011) Plantar fasciitis (resolved 11/10/2011) Otitis media with effusion (resolved ) Insomnia (resolved 02/15/2015) Toxic effect of venom (snake, lizard, sp ider and tic) (resolved 09/07/2011) GERD (resolved 07/18/2012) Major depression, single episode, modera te (resolved 07/18/2012) Epigastric abdominal pain (resolved 03/30) Surgical History Surgery Date(Month/Year) Cholecystectomy Shoulders Finger surgery Back Surgery Knee surgery
--- OUTSIDE RECORDS SUMMARY | 2025-01-24 19:32 | XMS_ITS | Encounter Summary ---
Author Organization [facility] Address [address] [place] [address] Care Team Providers Care Engagement Quality Consultant Name Role Phone Sara Viramontes MD Unavailable Violet Salguero RN Unavailable Unavailable Jim Alfredo DO Unavailable [phone] Cesar Grullon MD Primary Care Provider [phone] Romelia Rodriguez LPN Unavailable UnavailPepper Patton DIRECTOR WEIGHTS AND MEASURES Unavailable [phone] Reason for Visit * Reason Onset Date Comments Medication Refill 10/19/2024 Orders 10/19/2024 Encounter Details Date Type Department Care Team (Late st Contact Info) Description 10/19/2024 Refill [facility] [address] [place] [address] Cesar Grullon MD 500 [facility], [address] [place], [place] [id number] Low testosterone Social History Tobacco Use Types Packs/Day Years Used Date Smoking Tobacco: Never Smokeless Tobacco: Never Alcohol Use Standard Drinks/Week Comments No 0 (1 standard drink = 0.6 oz pur e alcohol) Housing Stability - SDOH Screener Answer Date Recorded What is your living situation today? Steady hous ing 08/17/2024 Do you need help with Housing/Halfway resources? Not on file 08/17/2024 Patient indicated [...] Date Recorded PHQ-9 Total Score 3 08/17/2024 [place] Depression Scale Score Not o n file [...] phone, visiting friends or family, going to congregation or club meetings) No 08/17/2024 Patient indicated no issues from the most recent THRIVE questionnaire Not on file 08/17/2024 Adolescent Depression Answer Date Recor ded PHQ-9 Total Score 3 08/17/2024 [place] Depression Scale Score Not o n file [...] Telephone Encounter - Guerline Wisdom RN - 10/29/2024 3:00 PM EDT Left message for patient * Telephone Encounter - Tawanna Dan - 10/19/2024 1:44 PM EDT Incoming caller name: patient Communication message: pt stated that he needs labs ordered and refill for clomid Requesting a call back at: yes For Service Center Use Only: This is only to be used when a patient/caller is calling to follow up on and existing issue. Do notchange call reason, just use this smart phrase to document on TE. Please update TE for calls that are warm transferred back to the caller noted on last update. documented in this encounter Plan of Treatment Upcoming Encounters Date Type Department Care Team (Late st Contact Info) Description 02/05/2025 3:00 PM EDT Lab [facility] [address] [place] [address] 02/21/2025 1:40 PM EDT [facility] [address] [place] [phone] Cesar Grullon MD [address] [address] 04/16/2025 3:10 PM EST Office Visit [facility] [address] [place] [address] [place] [address] [place] [address] documented as of this encounter Visit Diagnoses Diagnosis Low testosterone documented in this encounter Care Teams Engagement Quality Consultant Relationship Specialty Start Date End Date Cesar Grullon MD [address] [address] PCP - General Family Medicine 04/22/23 Sara Viramontes MD [address] [place] [address] Physician Hematology and Oncology 01/28/23 Violet Salguero, RN Registered Nurse Medical Oncology 01/28/23 Jim Alfredo DO [address] [place], [place] [phone] Surgeon General Surgery 02/03/23 Romelia Rodriguez LPN [facility] Nurse 03/12/24 Pepper Lieberman NP 500 [facility] [address] [place] [address] Nurse Practitioner Family Medicine 12/04/24 documented as of this encounter
--- OUTSIDE RECORDS SUMMARY | 2025-01-24 19:32 | XMS_ITS | Encounter Summary ---
Author Organization [facility] Address [address] [place] [address] Care Team Providers Care Kennel Technician Name Role Phone Sara Viramontes MD Unavailable Violet Salguero RN Unavailable Unavailable Jim Alfredo DO Unavailable Cesar Grullon MD Primary Care Provider Romelia Rodriguez LPN Unavailable UnavailPepper Patton ENROLLMENT COUNSELOR Unavailable [phone] Reason for Referral * Consultation (Routine/First Available) - Authorized Specialty Diagnoses / Procedures Referred By Contac t Referred To Contact Pulmonary Disease / Pulmonology Diagnoses Lung nodule Cesar Grullon MD 500 [facility], [address] [place] [address] Phone: tel: fax: Referral ID Status Reason Start Date Expiration Date V isits Requested Visits Authorized [id number] Authorized 09/18/2024 09/18/2025 12 12 Reason for Visit * Reason Onset Date Comments Office Message 09/18/2024 Encounter Details Date Type Department Care Team ([facility] st Contact Info) Description 09/18/2024 Telephone [facility] [address] [place] [address] Cesar Grullon MD 500 [facility], [address] [place] [address] Office Message Social History Tobacco Use Types Packs/Day Years Used Date Smoking Tobacco: Never Smokeless Tobacco: Never Alcohol Use Standard Drinks/Week Comments No 0 (1 standard drink = 0.6 oz pur e alcohol) Housing Stability - SDOH Screener Answer Date Recorded What is your living situation today? Steady hous ing 08/17/2024 Do you need help with Housing/Custodial resources? Not on file 08/17/2024 Patient indicated [...] Date Recorded PHQ-9 Total Score 3 08/17/2024 [place] Depression Scale Score Not o n file [...] phone, visiting friends or family, going to oriental orthodox or club meetings) No 08/17/2024 Patient indicated no issues from the most recent THRIVE questionnaire Not on file 08/17/2024 Adolescent Depression Answer Date Recor ded PHQ-9 Total Score 3 08/17/2024 [place] Depression Scale Score Not o n file [...] * Telephone Encounter - Uma Salcedo - 09/20/2024 12:59 PM EDT Noted. * Telephone Encounter - Guerline Wisdom RN - 09/19/2024 8:56 AM EDT Noted * Telephone Encounter - Romelia Izaguirre - 09/19/2024 8:17 AM EDT Incoming caller to practice: pt Communication Message: pt calling to cancel apt he could not get a ride. he will call back Requesting a call back: For Service Center Use Only: CALL REASON: OFFICE MESSAGE Use this smartphrase when the call is anything that is not covered under normal call reasons/smart phrases and does not need a nurse triage (i.e. can you please just let the office know???..). * Telephone Encounter - Jennifer Meza LPN - 09/18/2024 2:32 PM EDT Reviewed with PCP and spoke with patient Patient states he has fever, cough and mucous despite completing zpack 09/17/24 He denies distress and declines appt 09/18/24 He notes he has to take bus to the office Appt sched @10 09/19/24 with Marcela Patient provided with scheduling number to schedule repeat CT scan in 3 months and referral pended to pulmonology * Telephone Encounter - Cesar Grullon MD - 09/18/2024 1:54 PM EDT I have already ordered follow-up imaging. If patient is symptomatic, you will need to come to office for an appointment. * Telephone Encounter - Charis Reid - 09/18/2024 1:44 PM EDT Incoming caller to practice: Pt Communication Message: Pt calling requesting to speak with the office regarding his x-ray results, states he is very concerned. Pt also states that he has questions about an antibiotic due to having an infection in his lungs still. Pt would like a call back from the office. Requesting a call back: Yes For Service Center Use Only: CALL REASON: OFFICE MESSAGE Use this smartphrase when the call is anything that is not covered under normal call reasons/smart phrases and does not need a nurse triage (i.e. can you please just let the office know???..). documented in this encounter Plan of Treatment Upcoming Encounters Date Type Department Care Team (Late st Contact Info) Description 02/05/2025 3:00 PM EDT Lab [facility] [address] [place] [address] 02/21/2025 1:40 PM EDT Office Visit [facility] [address] [place] [address] Cesar Grullon MD 500 [facility], [address] [place] [address] 04/16/2025 3:10 PM EST Office Visit [facility] [address] [place] [address] [place] PA [address] [place] [address] Scheduled Referrals Name Type Priority Associated Diagnoses Order Schedule Outpatient referral to Pulmonology Outpatient Referral First Available/Routin e Lung nodule Ordered: 09/18/2024 documented as of this encounter Visit Diagnoses Diagnosis Lung nodule- Primary Other diseases of lung, not elsewhere classified documented in this encounter Care Teams Kennel Technician Relationship Specialty Start Date End Date Cesar Grullon MD 500 [facility], [address] [place] [address] PCP - General Family Medicine 04/22/23 Sara Viramontes MD [address] [place] [address] Physician Hematology and Oncology 01/28/23 Violet Salguero, JACOB Registered Nurse Medical Oncology 01/28/23 Jim Alfredo DO [address] [place] [address] Surgeon General Surgery 02/03/23 Romelia Rodriguez LPN [facility] Nurse 03/12/24 Pepper Lieberman, ENROLLMENT COUNSELOR 500 [facility] [address] [place] [address] Nurse Practitioner Family Medicine 12/04/24 documented as of this encounter
--- OUTSIDE RECORDS SUMMARY | 2025-01-24 19:33 | XMS_ITS | Encounter Summary ---
Author Organization [facility] Address [address] [place] [address] Care Team Providers Care Denture Processor Name Role Phone Sara Viramontes MD Unavailable Violet Salguero RN Unavailable Unavailable Jim Alfredo DO Unavailable [phone] Cesar Grullon MD Primary Care Provider [phone] Romelia Rodriguez LPN Unavailable UnavailPepper Patton NP Unavailable [phone] Encounter Details Date Type Department Care Team (Latest Contact Info) Description 01/22/2025 Travel Social History Tobacco Use Types Packs/Day Years [...] Date Recorded PHQ-9 Total Score 3 08/17/2024 [place] Depression Scale Score Not o n file [...] phone, visiting friends or family, going to restoration or club meetings) No 08/17/2024 Patient indicated no issues from the most recent THRIVE questionnaire Not on file 08/17/2024 Adolescent Depression Answer Date Recor ded PHQ-9 Total Score 3 08/17/2024 [place] Depression Scale Score Not o n file [...] Info) Description 02/05/2025 3:00 PM EDT Lab [facility] [address] [place] [address] 02/21/2025 1:40 PM EDT [facility] [address] [place] [address] Cesar Grullon MD 500 [facility], [address] [place] [address] 04/16/2025 3:10 PM EST [facility] [address] [place] [address] [place] [facility] [address] [place] [address] documented as of this encounter Visit Diagnoses Not on filedocumented in this encounter Care Teams Denture Processor Relationship Specialty Start Date End Date Cesar Grullon MD 500 [facility], [address] [place] [address] PCP - General Family Medicine 04/22/23 Sara Viramontes MD [address] [place] [address] Physician Hematology and Oncology 01/28/23 Violet Salguero, RN Registered Nurse Medical Oncology 01/28/23 Jim Alfredo DO [address] [place] [address] Surgeon General Surgery 02/03/23 Romelia Rodriguez LPN [facility] Nurse 03/12/24 Pepper Lieberman, PUBLIC SPACE ATTENDANT 500 [facility] [address] [place] [address] Nurse Practitioner Family Medicine 12/04/24 documented as of this encounter
--- OUTSIDE RECORDS SUMMARY | 2025-01-24 19:33 | XMS_ITS | Encounter Summary ---
Author Organization [facility] Address [address] [place] [address] Care Team Providers Care Blind Eyeletter Name Role Phone Sara Viramontes MD Unavailable Violet Salguero RN Unavailable Unavailable Jim Alfredo DO Unavailable [phone] Cesar Grullon MD Primary Care Provider [phone] Romelia Rodriguez LPN Unavailable UnavailePpper Patton NP Unavailable [phone] Encounter Details Date Type Department Care Team (Late st Contact Info) Description 01/18/2025 Pharmacy Visit [facility] [address] [place] [address] Social History Tobacco Use Types Packs/Day Years [...] Date Recorded PHQ-9 Total Score 3 08/17/2024 [place] Depression Scale Score Not o n file [...] Recor ded PHQ-9 Total Score 3 08/17/2024 [place] Depression Scale Score Not o n file [...] Info) Description 02/05/2025 3:00 PM EDT Lab [facility] [address] [place] [address] 02/21/2025 1:40 PM EDT Office Visit [facility] [address] [place] [address] Cesar Grullon MD 500 [facility], [address] [place] [address] 04/16/2025 3:10 PM EST Office Visit [facility] [address] [place] [address] [place] PA [address] [place] [address] documented as of this encounter Visit Diagnoses Not on filedocumented in this encounter Care Teams Blind Eyeletter Relationship Specialty Start Date End Date Cesar Grullon MD 500 [facility] [address] [place] [address] PCP - General Family Medicine 04/22/23 Sara Viramontes MD [address] [place] [address] Physician Hematology and Oncology 01/28/23 Violet Salguero, JACOB Registered Nurse Medical Oncology 01/28/23 Jim Alfredo DO [address] [place] [address] Surgeon General Surgery 02/03/23 Romelia Rodriguez LPN [facility] Nurse 03/12/24 Pepper Lieberman, FUNDRAISING MANAGER 500 [facility] [address] [place] [address] Nurse Practitioner Family Medicine 12/04/24 documented as of this encounter
--- OUTSIDE RECORDS SUMMARY | 2025-01-24 19:33 | XMS_ITS | Encounter Summary ---
Author Organization [facility] Address [address] [place] [address] Care Team Providers Care Mechanical Process Engineer Name Role Phone Sara Viramontes MD Unavailable Violet Salguero RN Unavailable Unavailable Jim Alfredo DO Unavailable [phone] Cesar Grullon MD Primary Care Provider [phone] Romelia Rodriguez LPN Unavailable UnavailPepper Patton PRODUCTION ARTIST Unavailable [phone] Encounter Details Date Type Department Care Team (Late st Contact Info) Description 06/06/2023 Pharmacy Visit [facility] [address] [place] [address] Social History Tobacco Use Types [...] Info) Description 02/05/2025 3:00 PM EDT Lab [facility] [address] [place] [address] 02/21/2025 1:40 PM EDT Office Visit [facility] [address] [place] [address] Cesar Grullon MD 500 [facility], [address] [address] 04/16/2025 3:10 PM EST Office Visit [facility] [address] [place] [address] [place] [address] [place] [address] documented as of this encounter Visit Diagnoses Not on filedocumented in this encounter Care Teams Mechanical Process Engineer Relationship Specialty Start Date End Date Cesar Grullon MD [address] [address] PCP - General Family Medicine 04/22/23 Sara Viramontes MD [address] [place] [address] Physician Hematology and Oncology 01/28/23 Violet Salguero, RN Registered Nurse Medical Oncology 01/28/23 Jim Alfredo DO [address] [place] [address] Surgeon General Surgery 02/03/23 Romelia Rodriguez LPN [facility] Nurse 03/12/24 Pepper Lieberman, PRODUCTION ARTIST [address] [address] Nurse Practitioner Family Medicine 12/04/24 documented as of this encounter
--- OUTSIDE RECORDS SUMMARY | 2025-01-24 19:33 | XMS_ITS | Encounter Summary ---
Author Organization [facility] Address [address] [place] [address] Care Team Providers Care River Pilot Name Role Phone Lenin Dela Cruz MD Primary Care Provider [phone] Sara Viramontes MD Unavailable Violet Salguero RN Unavailable Unavailable Jim Alfredo DO Unavailable [phone] Cesar Grullon MD Primary Care Provider [phone] Cesar Grullon MD Primary Care Provider [phone] Romelia Rodriguez LPN Unavailable UnavailPepper Patton SENIOR CHEMICAL ENGINEER Unavailable [phone] Encounter Details Date Type Department Care Team (Late st Contact Info) Description 08/12/2022 Procedure Pass [facility] [address] [place] [address] Social History Tobacco Use Types [...] PM EDT Lab [facility] 500 [place] [address] 02/21/2025 1:40 PM EDT Office Visit [facility] [address] [place] [address] Cesar Grullon MD 500 [facility], [address] [address] 04/16/2025 3:10 PM EST Office Visit [facility] [address] [place] [address] [place] [address] [place] [address] documented as of this encounter Visit Diagnoses Not on filedocumented in this encounter Additional Health Concerns Infection Onset Date Last Indicated Resolved Time PUI COVID 05/31/2023 05/31/2023 05/31/2023 12:5 5 PM EST documented as of this encounter Care Teams River Pilot Relationship Specialty Start Date End Date Lenin Dela Cruz MD [address] [place] [address] PCP - General Family Medicine 04/12/18 04/06/23 Cesar Grullon MD [address] [place] [address], [facility] [address] [place] [address] PCP - General Family Medicine 04/07/23 04/19/23 Cesar Grullon MD [address] [place] [address], [facility] [address] [place] [address] PCP - General Family Medicine 04/22/23 Sara Viramontes MD [address] [place] [address] Physician Hematology and Oncology 01/28/23 Violet Salguero, RN Registered Nurse Medical Oncology 01/28/23 Jim Alfredo DO [address] [place] [address] Surgeon General Surgery 02/03/23 Romelai Rodriguez LPN [facility] Nurse 03/12/24 Pepper Lieberman, SENIOR CHEMICAL ENGINEER [address] [facility] [address] [place] [address] Nurse Practitioner Family Medicine 12/04/24 documented as of this encounter
--- OUTSIDE RECORDS SUMMARY | 2025-01-24 19:33 | XMS_ITS | Encounter Summary ---
Author Organization [facility] Address [address] [place] [address] Care Team Providers Care Executive Kitchen Manager Name Role Phone Lenin Dela Cruz MD Primary Care Provider [phone] Sara Viramontes MD Unavailable Violet Salguero RN Unavailable Unavailable Jim Alfredo DO Unavailable [phone] Cesar Grullon MD Primary Care Provider Cesar Grullon MD Primary Care Provider [phone] Romelia Rodriguez LPN Unavailable UnavailPepper Patton CHLOROBUTADIENE SCRUBBER OPERATOR Unavailable [phone] Encounter Details Date Type Department Care Team (Late st Contact Info) Description 03/04/2023 Procedure Pass [facility] [address] [place] [address] Social History Tobacco Use Types [...] PM EDT Lab [facility] [address] [place] [address] 02/21/2025 1:40 PM EDT Office Visit [facility] 500 [place] [address] Cesar Grullon MD 500 [facility], [address] [address] 04/16/2025 3:10 PM EST Office Visit [facility] [address] [place] [address] [place] [address] [place] [address] documented as of this encounter Visit Diagnoses Not on filedocumented in this encounter Additional Health Concerns Infection Onset Date Last Indicated Resolved Time PUI COVID 05/31/2023 05/31/2023 05/31/2023 12:5 5 PM EST documented as of this encounter Care Teams Executive Kitchen Manager Relationship Specialty Start Date End Date Lenin Dela Cruz MD [address] [place] [address] PCP - General Family Medicine 04/12/18 04/06/23 Cesar Grullon MD [address] [place] [address], [facility] 170 [place] [address] PCP - General Family Medicine 04/07/23 04/19/23 Cesar Grullon MD [address] [place] [address], [facility] [address] [place] [address] PCP - General Family Medicine 04/22/23 Sara Viramontes MD [address] [place] [address] Physician Hematology and Oncology 01/28/23 Violet Salguero, RN Registered Nurse Medical Oncology 01/28/23 Jim Alfredo DO [address] [place] [address] Surgeon General Surgery 02/03/23 Romelia Rodriguez LPN [facility] Nurse 03/12/24 Pepper Lieberman, CHLOROBUTADIENE SCRUBBER OPERATOR [address] [facility] [address] [place] [address] Nurse Practitioner Family Medicine 12/04/24 documented as of this encounter
--- OUTSIDE RECORDS SUMMARY | 2025-01-24 19:33 | XMS_ITS | Encounter Summary ---
Author Organization [facility] Address [address] [place] [address] Care Team Providers Care Juvenile Justice Specialist Name Role Phone Lenin Dela Cruz MD Primary Care Provider [phone] Sara Viramontes MD Unavailable Violet Salguero RN Unavailable Unavailable Jim Alfredo DO Unavailable [phone] Cesar Grullon MD Primary Care Provider [phone] Cesar Grullon MD Primary Care Provider [phone] Romelia Rodriguez LPN Unavailable UnavailPepper Patton PACKING SUPERVISOR Unavailable [phone] Encounter Details Date Type Department Care Team (Late st Contact Info) Description 03/13/2023 Procedure Pass [facility] [address] [place] [address] Social History Tobacco Use Types [...] PM EDT Lab [facility] [address] [place] [address] 02/21/2025 1:40 PM EDT Office Visit [facility] [address] [place] [address] Cesar Grullon MD 500 [facility], [address] [address] 04/16/2025 3:10 PM EST Office Visit [facility] [address] [place] [address] [place] [address] [place] [address] documented as of this encounter Visit Diagnoses Not on filedocumented in this encounter Additional Health Concerns Infection Onset Date Last Indicated Resolved Time PUI COVID 05/31/2023 05/31/2023 05/31/2023 12:5 5 PM EST documented as of this encounter Care Teams Juvenile Justice Specialist Relationship Specialty Start Date End Date Lenin Dela Cruz MD [address] [place] [address] PCP - General Family Medicine 04/12/18 04/06/23 Cesar Grullon MD [address] [place] [address], [facility] [address] [place] [address] PCP - General Family Medicine 04/07/23 04/19/23 Cesar Grullon MD [address] [place] [address], [facility] [address] [place] [address] PCP - General Family Medicine 04/22/23 Sara Viramontes MD [address] [place] [address] Physician Hematology and Oncology 01/28/23 Violet Salguero, RN Registered Nurse Medical Oncology 01/28/23 Jim Alfredo DO [address] [place] [address] Surgeon General Surgery 02/03/23 Romelia Rodriguez LPN [facility] Nurse 03/12/24 Pepper Lieberman, PACKING SUPERVISOR [address] [facility] [address] [place] [address] Nurse Practitioner Family Medicine 12/04/24 documented as of this encounter
--- OUTSIDE RECORDS SUMMARY | 2025-01-24 19:33 | XMS_ITS | Encounter Summary ---
Author Organization [facility] Address [address] [place] [address] Care Team Providers Care Global Logistics Analyst Name Role Phone Sara Viramontes MD Unavailable Violet Salguero RN Unavailable Unavailable Jim Alfredo DO Unavailable [phone] Cesar Grullon MD Primary Care Provider Romelia Rodriguez LPN Unavailable UnavailPepper Patton CAR INSPECTION AND REPAIR MANAGER Unavailable [phone] Reason for Visit * Reason Onset Date Comments Medication Refill Medication Problem 02/06/2024 Encounter Details Date Type Department Care Team (Late st Contact Info) Description 02/06/2024 Refill [facility] [address] [place] [phone] Cesar Grullon MD 500 [facility], [address] [place], [place] [phone] MASSIMO (generalized anxiety disorder) Social History Tobacco Use Types Packs/Day Years Used Date Smoking Tobacco: Never Smokeless Tobacco: Never Alcohol Use Standard Drinks/Week Comments No 0 (1 standard drink = 0.6 oz pur e alcohol) Housing Stability - SDOH Screener Answer Date Recorded What is your living situation today? Steady hous ing 06/30/2023 Do you need help with Housing/Jail resources? Not on file 06/30/2023 Patient indicated no issues from the most recent SDOH questionnaire Not on file 06/30/2023 Homeless diagnosis active in problem list or in an encounter in the past year? Not on file 06/30/2023 Health Literacy - SDOH Screener Answer Date Recorded Do you ever need help readin g or understanding information about your medical conditions? No 06/30/2023 Patient indicated no issues from the most recent THRIVE questionnaire Not on file 06/30/2023 Oral Health - SDOH Screener Answer Date Recorded Was there a time you needed dental care in the last 12 months but was not received? No 06/30/2023 Patient indicated no issues from the most recent THRIVE questionnaire Not on file 06/30/2023 Transportation - SDOH Screener Answer D ate Recorded Do you have trouble getting transportation to medical appointments? No 06/30/2023 Do you need help with Transp ortation to medical appointments? Not on file 06/30/2023 Patient indicated no issues from the most recent SDOH questionnaire Not on file 06/30/2023 Food Insecurity - SDOH Screener Answer Date Recorded Within the past 12 months, t he food you bought just didn't last and you didn't have money to get more? Never true 06/30/2023 Within the past 12 months, y ou worried whether your food would run out before you got money to buy more? Never true 2023 Do you need help with Food resources? Not on graciela e 06/30/2023 Patient indicated no issues from the most recent SDOH questionnaire Not on file 06/30/2023 Depression Answer Date Recorded PHQ-9 Total Score 1 06/30/2023 Brookesmith Depression Scale Score Not o n file 06/30/2023 EPDS: The thought of harming myself has occurred to me Not on file 06/30/2023 PHQ-A: In the past year have you felt depressed or sad most days, even if you felt okay sometimes? Not on file 06/30/2023 PHQ-A: If you are experienci ng any of the problems on this form, how difficult have these problems made it for you to do your work, take care of things at home or get along with other people? Not on file 06/30/2023 PHQ-A: Has there been a time in the past month when you have had serious thoughts about ending your life? Not on file 05/2023 PHQ-A: Have you ever, in you r whole life, tried to kill yourself or made a suicide attempt? Not on file 06/30/2023 PHQ9/A: Thoughts that you wo uld be better off , or of hurting yourself in some way? No 06/30/2023 Care Giving - SDOH Screener Answer Date Recorded Do you have trouble taking c are of a child, family member or friend? No 06/30/2023 Do you need help with Childcare/Daycare? Not on file 06/30/2023 Do you need help with Elder Care Not on file 06/30/2023 Patient indicated no issues from the most recent SDOH questionnaire Not on file 06/30/2023 Employment - SDOH Screener Answer Date Recorded Are you currently unemployed and looking for a j ob? No 06/30/2023 Are you or your parent/guard gala currently unemployed and looking for a job? (age <= 21) Not on file 06/30/2023 Patient indicated no issues from the most recent THRIVE questionnaire (<22) Not on file 06/30/2023 Patient indicated no issues from the most recent THRIVE questionnaire (22+) Not on file 06/30/2023 Affording Medications - SDOH Screener Answer Date Recorded Do you have trouble paying for medications? No 06/30/2023 Do you need help with Paying for Medicine resour marlys? Not on file 06/30/2023 Patient indicated no issues from the most recent SDOH questionnaire Not on file 06/30/2023 Utilities - SDOH Screener Answer Date R ecorded Do you have trouble paying y our heating and/or electricity bill? No 06/30/2023 Do you need help with Utilities? Not on file 06/30/2023 Patient indicated no issues from the most recent SDOH questionnaire Not on file 06/30/2023 Social Isolation - SDOH Screener Answer Date Recorded Are you dissatisfied with ho w often you see or talk to people that you care about and feel close to? (For example: talking to friends on the phone, visiting friends or family, going to anabaptism or club meetings) No 06/30/2023 Patient indicated no issues from the most recent THRIVE questionnaire Not on file 06/30/2023 Adolescent Depression Answer Date Recor ded PHQ-9 Total Score 1 06/30/2023 Brookesmith Depression Scale Score Not o n file 06/30/2023 EPDS: The thought of harming myself has occurred to me Not on file 06/30/2023 PHQ-A: In the past year have you felt depressed or sad most days, even if you felt okay sometimes? Not on file 06/30/2023 PHQ-A: If you are experienci ng any of the problems on this form, how difficult have these problems made it for you to do your work, take care of things at home or get along with other people? Not on file 06/30/2023 PHQ-A: Has there been a time in the past month when you have had serious thoughts about ending your life? Not on file 05/2023 PHQ-A: Have you ever, in you r whole life, tried to kill yourself or made a suicide attempt? Not on file 06/30/2023 PHQ9/A: Thoughts that you wo uld be better off , or of hurting yourself in some way? No 06/30/2023 Sex and Gender Information Value Date Recorded Sex Assigned at Male 03/07/2024 3:57 PM EDT Legal Sex Male 1:57 PM EST Gender Identity Male 03/07/2024 3:57 PM EDT Sexual Orientation Straight 08/14/2024 10 :23 AM EDT documented as of this encounter Miscellaneous Notes * Telephone Encounter - Belkis Metz - 03/05/2024 3:54 PM EDT Appt scheduled and pt is aware of appt * Telephone Encounter - Cesar Grullon MD - 02/06/2024 4:53 PM EDT Please schedule telemedicine appointment to discuss increased panic attacks before I fill medication. * Telephone Encounter - Guerline Wisdom RN - 02/06/2024 2:37 PM EDT Images from the original note were not included. LORazepam (ATIVAN) 1 MG tablet [Pharmacy Med Name: LORAZEPAM 1MG TABLETS] Last Visit in department: 07/06/2023 Next Visit in department: N/A Last Annual Visit in department: No Shows in department since Last Appt: 0 The current prescription has been flagged because [facility] review needed Last script ordered on 11/29/23 for (quantity/refill). The attached script pended for (quantity/refill). Controlled substance agreement: N/A Last toxicology done on: 03/30/2023 Please note: The last toxicology date and results grid below only reflect results associated with the [facility] toxicology smart set and will not reflect data from external labs or orders outside of that smartset. Latest Ref Rng & Units 02/27/2023 03/01/2023 03/31/2023 Toxicology Results Amphetamine Qualitative, Ur None Detected None Detected None Detected None Detected Barbiturates Qualitative, Ur None Detected None Detected None Detected None Detected Benzodiazepines Qualitative, Ur None Detected None Detected Detected Detected Buprenorphine Qualitative Urine None Detected None Detected Detected Detected Cannabinoids Qualitative, Ur None Detected Detected Detected Detected Cocaine Qualitative, Ur None Detected None Detected None Detected None Detected Fentanyl Qualitative, Ur None Detected None Detected None Detected None Detected Methadone Qualitative, Ur None Detected None Detected None Detected None Detected Opiates Qualitative, Ur None Detected None Detected None Detected None Detected Oxycodone Qualitative Urine None Detected None Detected None Detected None Detected Creatinine, Urine 20.0 - 400.0 mg/dL 8.0 69.0 47.0 Actions taken: routed to provider * Telephone Encounter - Margarita Barney - 02/06/2024 2:32 PM EDT Patient is calling he been having an increase in panic attacks, he has 0 left of this medication asking if it can filled today Medication has been T'd documented in this encounter Plan of Treatment Upcoming Encounters Date Type Department Care Team (Late st Contact Info) Description 02/05/2025 3:00 PM EDT Lab [facility] [address] [place] [phone] 02/21/2025 1:40 PM EDT Office Visit [facility] [address] [place] [address] Cesar Grullon MD [address] [address] 04/16/2025 3:10 PM EST Office Visit [facility] [address] [place] [address] [place] [facility] [address] [place] [address] documented as of this encounter Visit Diagnoses Diagnosis MASSIMO (generalized anxiety disorder) Generalized anxiety disorder documented in this encounter Care Teams Global Logistics Analyst Relationship Specialty Start Date End Date Cesar Grullon MD [address] [address] PCP - General Family Medicine 04/22/23 Sara Viramontes MD [address] [place] [address] Physician Hematology and Oncology 01/28/23 Violet Salguero, RN Registered Nurse Medical Oncology 01/28/23 Jim Alfredo DO [address] [place] [address] Surgeon General Surgery 02/03/23 Romelia Rodriguez LPN CCM Nurse 03/12/24 Pepper Lieberman, CAR INSPECTION AND REPAIR MANAGER [address] [address] Nurse Practitioner Family Medicine 12/04/24 documented as of this encounter
--- OUTSIDE RECORDS SUMMARY | 2025-01-24 19:33 | XMS_ITS | Clinical Summary ---
Author Organization [facility] Address [address] [place] [address] Care Team Providers Care Patternmaker Grader Name Role Phone Add, Provider Not In System Primary Care Provide r Unavailable Allergies No known active allergies Medications mirtazapine (REMERON) 30 MG tablet Take 1 tablet by mouth nightly for 14 days 14 tablet 3 Active QUEtiapine (SEROQUEL) 50 MG tablet Take one tablet in the morning, one at noon and a third as needed for anxiety and mood. 42 tablet 3 Active levothyroxine (SYNTHROID) 50 MCG tablet Take 1 tablet by mouth every morning before breakfast for 14 days 14 tablet 3 Active Active Problems Problem Noted Date Diagnosed Date Major depressive disorder, r ecurrent episode with anxious distress 04/02/2023 Social History Tobacco Use Types Packs/Day Years Used Date Smoking Tobacco: Never Passive Smoke Exposure: Never Smokeless Tobacco: Never Tobacco Cessation:Counseling Given: No Sex and Gender Information Value Date Recorded Sex Assigned at Not on file Legal Sex Male 10:17 AM EDT Gender Identity Not on file Sexual Orientation Not on file Last Filed Vital Signs Vital Sign Reading Time Taken Comments Blood Pressure 148/83 04/08/2023 7:29 AM EST Pulse 75 04/08/2023 7:29 AM EST Temperature 36.3 C (97.3 F) 04/08/2023 7:29 AM EST Respiratory Rate 18 04/08/2023 8:34 AM EST Oxygen Saturation 98% 04/08/2023 7:29 AM EST Inhaled Oxygen Concentration - - Weight 65 kg (143 lb 6.4 oz) 04/01/2023 11:53 PM EDT Height 167.6 cm (5' 6 ) 04/01/2023 10:11 PM EDT Body Mass Index 23.15 04/01/2023 10:11 PM EDT Plan of Treatment Health Maintenance Due Date Last Done Comments COLONOSCOPY 1955 AWQ Questionnaire 1973 COLON CA SCREENING FLEX SIG EVERY 5 YRS 1973 HEP C SCREEN 1973 TETANUS VACCINE (1 - Tdap) 1973 PHYSICAL EXAM 1977 Colorectal Cancer Screening 02/04/2000 FECAL OCCULT BLOOD AGE 45-75 02/04/2000 FIT- DNA (Cologuard) 02/04/2000 PROSTATE CANCER RISK ASSESSMENT 02/04/2000 PNEUMOCOCCAL VACCINE SERIES (65+) (1 of 1 - PCV) 2005 ZOSTER VACCINE (1 of 2) 2005 ASSESS NEED FOR AAA SCREENING 02/04/2020 FALL RISK ASSESSMENT: OVER 65 02/04/2020 HEALTH CARE PROXY 02/04/2020 COVID-19 Vaccine (2023-2 5 season) 2024 09/01/2021, 04/06/2021, 03/26/2021, Additional history exists INFLUENZA VACCINE (#1) 2025 , 03/09/2022, 02/20/2021, Additional history exists LIPID SCREENING 04/03/2028 04/03/2023 RSV OR 60+ (1 - 1-d ose 75+ series) 2030 Procedures Procedure Name Priority Date/Time Associated Diagnosis Comments LIPID PANEL Routine 04/03/2023 7:50 AM EST from Last 3 Months or Most Recently Relevant to Health Maintenance Results * Lipid Panel (04/03/2023 7:50 AM EST) Cholesterol 170 0 - 239 mg/dL [facility] TRIGLYCERIDES 87 0 - 150 mg/dL [facility] HIGH DENSITY LIPOPROTEIN 63 40 - 60 mg/dL [facility] LOW DENSITY LIPOPROTEIN DIRECT 93 0 - 189 mg/dL [facility] 04/03/2023 7:50 AM EST 04/03/2023 8:00 AM EST Narrative [facility] - 04/05/2023 11:31 AM EST Tests added: HFT by [email or web address] on 04/05/23 at [email or web address] us Matt Arreola MD LABORATORY Final Result [facility] [address] [place] [address], [place] from Last 3 Months or Most Recently Relevant to Health Maintenance Insurance MEDICARE - [facility] Address: [facility], [facility] [address] [place] [address] [facility] MEDICARE SUPPLEMENT Care Teams Patternmaker Grader Relationship Specialty Start Date End Date Add, Provider Not In System PCP - General Allergy 04/01/23
--- OUTSIDE RECORDS SUMMARY | 2025-01-24 19:33 | XMS_ITS | Encounter Summary ---
Author Organization [facility] Address [address] [place] [address] Care Team Providers Care Receiving Barn Custodian Name Role Phone Sara Viramontes MD Unavailable Violet Salguero RN Unavailable Unavailable Jim Alfredo DO Unavailable [phone] Cesar Grullon MD Primary Care Provider Romelia Rodriguez LPN Unavailable UnavailPepper Patton NP Unavailable [phone] Encounter Details Date Type Department Care Team (Late st Contact Info) Description 08/17/2024 Procedure [facility] [address] [place] [address] Social History Tobacco Use Types Packs/Day Years Used Date Smoking Tobacco: Never Smokeless Tobacco: Never Alcohol Use Standard Drinks/Week Comments No 0 (1 standard drink = 0.6 oz pur e alcohol) Housing Stability - SDOH Screener Answer Date Recorded What is your living situation today? Steady hous ing 08/17/2024 Do you need help with Housing/Snf resources? Not on file 08/17/2024 Patient indicated [...] Date Recorded PHQ-9 Total Score 3 08/17/2024 Wilbraham Depression Scale Score Not o n file [...] phone, visiting friends or family, going to yarsanism or club meetings) No 08/17/2024 Patient indicated no issues from the most recent THRIVE questionnaire Not on file 08/17/2024 Adolescent Depression Answer Date Recor ded PHQ-9 Total Score 3 08/17/2024 Wilbraham Depression Scale Score Not o n file [...] Sign Reading Time Taken Comments Blood Pressure - - Pulse - - Temperature - - Respiratory Rate - - Oxygen Saturation - - Inhaled Oxygen Concentration - - Weight 68 kg (150 lb) 08/20/2024 10:42 AM EDT Height 167.6 cm (5' 6 ) 08/20/2024 10:42 AM EDT Body Mass Index 24.21 08/20/2024 10:42 AM EDT documented in this encounter Plan of Treatment Upcoming Encounters Date Type Department Care Team (Late st Contact Info) Description 02/05/2025 3:00 PM EDT Lab [facility] [address] [place] [phone] 02/21/2025 1:40 PM EDT Office Visit [facility] [address] [place] [address] Cesar Grullon MD 500 [facility], [address] [place] [address] 04/16/2025 3:10 PM EST [facility] [address] [place] [address] [place] [facility] [address] [place] [address] documented as of this encounter Visit Diagnoses Not on filedocumented in this encounter Care Teams Receiving Barn Custodian Relationship Specialty Start Date End Date Cesar Grullon MD [address] [address] PCP - General Family Medicine 04/22/23 Sara Viramontes MD [address] [place] [address] Physician Hematology and Oncology 01/28/23 Violet Salguero, JACOB Registered Nurse Medical Oncology 01/28/23 Jim Alfredo DO [address] [place] [address] Surgeon General Surgery 02/03/23 Romelia Rodriguez LPN [facility] Nurse 03/12/24 Pepper Lieberman, SENIOR LIVING ADVISOR [address] [address] Nurse Practitioner Family Medicine 12/04/24 documented as of this encounter
--- OUTSIDE RECORDS SUMMARY | 2025-01-24 19:33 | XMS_ITS | Encounter Summary ---
Author Organization [facility] Address [address] [place] [address] Care Team Providers Care Counter Intelligence Name Role Phone Lenin Dela Cruz MD Primary Care Provider [phone] Sara Viramontes MD Unavailable Violet Salguero RN Unavailable Unavailable Jim Alfredo DO Unavailable [phone] Cesar Grullon MD Primary Care Provider [phone] Cesar Grullon MD Primary Care Provider [phone] Romelia Rodriguez LPN Unavailable UnavailPepper Patton CAPITAL EQUIPMENT SPECIALIST Unavailable [phone] Encounter Details Date Type Department Care Team (Late st Contact Info) Description 03/10/2023 Pharmacy Visit [facility] [address] [place] [address] Social History Tobacco Use Types [...] PM EDT Lab [facility] [address] [place] [address] 02/21/2025 1:40 PM EDT Office Visit [facility] [address] [place] [address] Cesar Grullon MD 500 [facility], [address] [address] 04/16/2025 3:10 PM EST Office Visit [facility] [address] [place] [address] [place] [facility] [address] [place] [address] documented as of this encounter Visit Diagnoses Not on filedocumented in this encounter Additional Health Concerns Infection Onset Date Last Indicated Resolved Time PUI COVID 05/31/2023 05/31/2023 05/31/2023 12:5 5 PM EST documented as of this encounter Care Teams Counter Intelligence Relationship Specialty Start Date End Date Lenin Dela Cruz MD [address] [place] [address] PCP - General Family Medicine 04/12/18 04/06/23 Cesar Grullon MD 500 [facility], [facility] [address] [place] [address] PCP - General Family Medicine 04/07/23 04/19/23 Cesar Grullon MD 500 [facility], [facility] [address] [place] [address] PCP - General Family Medicine 04/22/23 Sara Viramontes MD [address] [place] [address] Physician Hematology and Oncology 01/28/23 Violet Salguero, RN Registered Nurse Medical Oncology 01/28/23 Jim Alfredo DO [address] [place], [place] [phone] Surgeon General Surgery 02/03/23 Romelia Rodriguez LPN [facility] Nurse 03/12/24 Pepper Lieberman, CAPITAL EQUIPMENT SPECIALIST [address] [facility] [address] [place] [address] Nurse Practitioner Family Medicine 12/04/24 documented as of this encounter
--- OUTSIDE RECORDS SUMMARY | 2025-01-24 19:33 | XMS_ITS | Encounter Summary ---
Author Organization [facility] Address [address] [place] [address] Care Team Providers Care Print Operator Name Role Phone Lenin Dela Cruz MD Primary Care Provider [phone] Sara Viramontes MD Unavailable Violet Salguero RN Unavailable Unavailable Jim Alfredo DO Unavailable [phone] Cesar Grullon MD Primary Care Provider [phone] Cesar Grullon MD Primary Care Provider [phone] Romelia Rodriguez LPN Unavailable UnavailPepper Patton LEADERSHIP COACH Unavailable [phone] Encounter Details Date Type Department Care Team (Late st Contact Info) Description 03/22/2023 Pharmacy Visit [facility] [address] [place] [address] Social History Tobacco Use Types [...] PM EDT Lab [facility] [address] [place] [address] 02/21/2025 1:40 PM EDT Office Visit [facility] [address] [place] [address] Cesar Grullon MD 500 [facility], [address] [address] 04/16/2025 3:10 PM EST Office Visit [facility] [address] [place] [address] [place] [facility] [address] [place] [address] documented as of this encounter Visit Diagnoses Not on filedocumented in this encounter Additional Health Concerns Infection Onset Date Last Indicated Resolved Time PUI COVID 05/31/2023 05/31/2023 05/31/2023 12:5 5 PM EST documented as of this encounter Care Teams Print Operator Relationship Specialty Start Date End Date Lenin Dela Cruz MD [address] [place] [address] PCP - General Family Medicine 04/12/18 04/06/23 Cesar Grullon MD 500 [facility], [facility] [address] [place] [address] PCP - General Family Medicine 04/07/23 04/19/23 Cesar Grullon MD [address] [facility], [facility] [address] [place] [address] PCP - General Family Medicine 04/22/23 Sara Viramontes MD [address] [place] [address] Physician Hematology and Oncology 01/28/23 Violet Salguero, RN Registered Nurse Medical Oncology 01/28/23 Jim Alfredo DO [address] [place], [place] [phone] Surgeon General Surgery 02/03/23 Romelia Rodriguez LPN [facility] Nurse 03/12/24 Pepper Lieberman, LEADERSHIP COACH [address] [facility] [address] [place] [address] Nurse Practitioner Family Medicine 12/04/24 documented as of this encounter
--- OUTSIDE RECORDS SUMMARY | 2025-01-24 19:33 | XMS_ITS | Patient Health Record ---
Author Organization [facility] Address [address] [place] [id number] Care Team Providers Care Painter Touch Up Name Role Phone RomanaCHUCK OROURKEGINNA Unavailable Reason For Referral No Information Medications Medication SIG (Take, Route, Frequency, Duration) Notes Start Date End Date Status Loratadine 10 MG 1 tab(s) orally once a day; Duration: 30 day(s) 09/19/2008 Active Fluticasone Propionate 50 MCG/ACT 1 spray(s) intranasally once a day; Duration: 30 day(s) 08/18/2017 Active Plan Of Treatment No Information Insurance Providers Payer Name Payer Address Payer Phone Subscriber Number Group Number Insured Name Patient Relationship to Insured Coverage Start Date Coverage End Date [facility] [address] [place] [address] [phone] [id number] Karma Quezada
--- OUTSIDE RECORDS SUMMARY | 2025-01-24 19:33 | XMS_ITS | Encounter Summary ---
Author Organization [facility] Address [address] [place] [address] Care Team Providers Care Clerk Of Superior Court Name Role Phone Sara Viramontes MD Unavailable Violet Salguero RN Unavailable Unavailable Jim Alfredo DO Unavailable [phone] Cesar Grullon MD Primary Care Provider [phone] Romelia Rodriguez LPN Unavailable UnavailPepper Patton STEREO COMPILER Unavailable [phone] Encounter Details Date Type Department Care Team (Late st Contact Info) Description 06/08/2023 Pharmacy Visit [facility] [address] [place] [address] Social History Tobacco Use Types [...] Info) Description 02/05/2025 3:00 PM EDT Lab [facility] [address] [place] [address] 02/21/2025 1:40 PM EDT Office Visit [facility] [address] [place] [address] Cesar Grullon MD 500 [facility], [address] [address] 04/16/2025 3:10 PM EST Office Visit [facility] [address] [place] [address] [place] [address] [place] [address] documented as of this encounter Visit Diagnoses Not on filedocumented in this encounter Care Teams Clerk Of Superior Court Relationship Specialty Start Date End Date Cesar Grullon MD [address] [address] PCP - General Family Medicine 04/22/23 Sara Viramontes MD [address] [place] [address] Physician Hematology and Oncology 01/28/23 Violet Salguero, RN Registered Nurse Medical Oncology 01/28/23 Jim Alfredo DO [address] [place] [address] Surgeon General Surgery 02/03/23 Romelia Rodriguez LPN CCM Nurse 03/12/24 Pepper Lieberman, STEREO COMPILER [address] [address] Nurse Practitioner Family Medicine 12/04/24 documented as of this encounter
--- OUTSIDE RECORDS SUMMARY | 2025-01-24 19:33 | XMS_ITS | Encounter Summary ---
Author Organization [facility] Address [address] [place] [address] Care Team Providers Care Web Press Jogger Name Role Phone Sara Viramontes MD Unavailable Violet Salguero RN Unavailable Unavailable Jim Alfredo DO Unavailable [phone] Cesar Grullon MD Primary Care Provider Romelia Rodriguez LPN Unavailable UnavailPepper Patton CELL LEAD Unavailable [phone] Encounter Details Date Type Department Care Team (Late st Contact Info) Description 06/09/2023 Pharmacy Visit [facility] [address] [place] [address] Social History Tobacco Use Types [...] Info) Description 02/05/2025 3:00 PM EDT Lab [facility] [address] [place] [address] 02/21/2025 1:40 PM EDT Office Visit [facility] [address] [place] [address] Cesar Grullon MD 500 [facility], [address] [address] 04/16/2025 3:10 PM EST Office Visit [facility] [address] [place] [address] [place] PA [address] [place] [address] documented as of this encounter Visit Diagnoses Not on filedocumented in this encounter Care Teams Web Press Jogger Relationship Specialty Start Date End Date Cesar Grullon MD [address] [address] PCP - General Family Medicine 04/22/23 Sara Viramontes MD [address] [place] [address] Physician Hematology and Oncology 01/28/23 Violet Salguero, RN Registered Nurse Medical Oncology 01/28/23 Jim Alfredo DO [address] [place] [address] Surgeon General Surgery 02/03/23 Romelia Rodriguez LPN CCM Nurse 03/12/24 Pepper Lieberman, CELL LEAD [address] [address] Nurse Practitioner Family Medicine 12/04/24 documented as of this encounter
--- OUTSIDE RECORDS SUMMARY | 2025-01-24 19:33 | XMS_ITS | Encounter Summary ---
Author Organization [facility] Address [address] [place] [address] Care Team Providers Care Helminthologist Name Role Phone Sara Viramontes MD Unavailable Violet Salguero RN Unavailable Unavailable Jim Alfredo DO Unavailable [phone] Cesar Grullon MD Primary Care Provider [phone] Romelia Rodriguez LPN Unavailable UnavailPepper Patton NP Unavailable [phone] Encounter Details Date Type Department Care Team (Late st Contact Info) Description 08/28/2024 Procedure Pass [facility] [address] [place] [address] Social History Tobacco Use Types Packs/Day Years Used Date Smoking Tobacco: Never Smokeless Tobacco: Never Alcohol Use Standard Drinks/Week Comments No 0 (1 standard drink = 0.6 oz pur e alcohol) Housing Stability - SDOH Screener Answer Date Recorded What is your living situation today? Steady hous ing 08/17/2024 Do you need help with Housing/Penitentiary resources? Not on file 08/17/2024 Patient indicated [...] Date Recorded PHQ-9 Total Score 3 08/17/2024 [place] Depression Scale Score Not o n file [...] phone, visiting friends or family, going to sikh or club meetings) No 08/17/2024 Patient indicated no issues from the most recent THRIVE questionnaire Not on file 08/17/2024 Adolescent Depression Answer Date Recor ded PHQ-9 Total Score 3 08/17/2024 [place] Depression Scale Score Not o n file [...] Info) Description 02/05/2025 3:00 PM EDT Lab [facility] [address] [place] [address] 02/21/2025 1:40 PM EDT [facility] [address] [place] [address] Cesar Grullon MD 500 [facility], [address] [place] [address] 04/16/2025 3:10 PM EST [facility] [address] [place] [address] [place] PA [address] [place] [address] documented as of this encounter Visit Diagnoses Not on filedocumented in this encounter Care Teams Helminthologist Relationship Specialty Start Date End Date Cesar Grullon MD 500 [facility], [address] [place] [address] PCP - General Family Medicine 04/22/23 Sara Viramontes MD [address] [place] [address] Physician Hematology and Oncology 01/28/23 Violet Salguero, JACOB Registered Nurse Medical Oncology 01/28/23 Jim Alfredo DO [address] [place] [address] Surgeon General Surgery 02/03/23 Romelia Rodriguez LPN [facility] Nurse 03/12/24 Pepper Lieberman, GEOSPATIAL TECHNOLOGIST 500 [facility] [address] [place] [address] Nurse Practitioner Family Medicine 12/04/24 documented as of this encounter
--- OUTSIDE RECORDS SUMMARY | 2025-01-24 19:33 | XMS_ITS | Encounter Summary ---
Author Organization [facility] Address [address] [place] [address] Care Team Providers Care English Lecturer Name Role Phone Sara Viramontes MD Unavailable Violet Salguero RN Unavailable Unavailable Jim Alfredo DO Unavailable [phone] Cesar Grullon MD Primary Care Provider [phone] Romelia Rodriguez LPN Unavailable UnavailPepper Patton CASE CHECKER Unavailable [phone] Encounter Details Date Type Department Care Team (Late st Contact Info) Description 06/17/2023 Procedure Pass [facility] - [address] [address] Social History Tobacco Use Types Packs/Day [...] Info) Description 02/05/2025 3:00 PM EDT Lab [facility] [address] [address] 02/21/2025 1:40 PM EDT Office Visit [facility] [address] [place] [address] Cesar Grullon MD [address] [address] 04/16/2025 3:10 PM EST Office Visit [facility] [address] [place] [address] [place] PA [address] [place] [address] documented as of this encounter Visit Diagnoses Not on filedocumented in this encounter Care Teams English Lecturer Relationship Specialty Start Date End Date Cesar Grullon MD [address] [address] PCP - General Family Medicine 04/22/23 Sara Viramontes MD [address] [place] [address] Physician Hematology and Oncology 01/28/23 Violet Salguero, RN Registered Nurse Medical Oncology 01/28/23 Jim Alfredo DO [address] [place] [address] Surgeon General Surgery 02/03/23 Romelia Rodriguez LPN CCM Nurse 03/12/24 Pepper Lieberman, CASE CHECKER [address] [address] Nurse Practitioner Family Medicine 12/04/24 documented as of this encounter
--- OUTSIDE RECORDS SUMMARY | 2025-01-24 19:33 | XMS_ITS | Encounter Summary ---
Author Organization [facility] Address [address] [place] [address] Care Team Providers Care Wax Specialist Name Role Phone Lenin Dela Cruz MD Primary Care Provider [phone] Sara Viramontes MD Unavailable Violet Salguero RN Unavailable Unavailable Jim Alfredo DO Unavailable [phone] Cesar Grullon MD Primary Care Provider [phone] Cesar Gruloln MD Primary Care Provider [phone] Romelia Rodriguez LPN Unavailable UnavailPepper Patton DOUGH BRAKE MACHINE OPERATOR Unavailable [phone] Encounter Details Date Type Department Care Team (Late st Contact Info) Description 03/24/2023 Pharmacy Visit [facility] [address] [place] [address] Social History Tobacco Use Types [...] PM EDT Lab [facility] [address] [place] [address] 02/21/2025 1:40 PM EDT Office Visit [facility] [address] [place] [address] Cesar Grullon MD 500 [facility], [address] [address] 04/16/2025 3:10 PM EST Office Visit [facility] [address] [place] [address] [place] PA [address] [place] [address] documented as of this encounter Visit Diagnoses Not on filedocumented in this encounter Additional Health Concerns Infection Onset Date Last Indicated Resolved Time PUI COVID 05/31/2023 05/31/2023 05/31/2023 12:5 5 PM EST documented as of this encounter Care Teams Wax Specialist Relationship Specialty Start Date End Date Lenin Dela Cruz MD [address] [place] [address] PCP - General Family Medicine 04/12/18 04/06/23 Cesar Grullon MD 500 [facility], [facility] [address] [place] [address] PCP - General Family Medicine 04/07/23 04/19/23 Cesar Grullon MD 500 [facility], [facility] [address] [place] [address] PCP - General Family Medicine 04/22/23 Sara Viramontes MD [address] [place] [address] Physician Hematology and Oncology 01/28/23 Violet Salguero, RN Registered Nurse Medical Oncology 01/28/23 Jim Alfredo DO [address] [place], [place] [address] Surgeon General Surgery 02/03/23 Romelia Rodriguez LPN [facility] Nurse 03/12/24 Pepper Lieberman, DOUGH BRAKE MACHINE OPERATOR 150 [facility] [address] [place] [address] Nurse Practitioner Family Medicine 12/04/24 documented as of this encounter
--- OUTSIDE RECORDS SUMMARY | 2025-01-24 19:33 | XMS_ITS | Encounter Summary ---
Author Organization [facility] Address [address] [place] [address] Care Team Providers Care Slot Floor Supervisor Name Role Phone Sara Viramontes MD Unavailable Violet Salguero RN Unavailable Unavailable Jim Alfredo DO Unavailable [phone] Cesar Grullon MD Primary Care Provider Romelia Rodriguez LPN Unavailable UnavailPepper Patton NP Unavailable [phone] Encounter Details Date Type Department Care Team (Late st Contact Info) Description 08/22/2024 Procedure Pass [facility] [address] [place] [address] Social History Tobacco Use Types Packs/Day Years Used Date Smoking Tobacco: Never Smokeless Tobacco: Never Alcohol Use Standard Drinks/Week Comments No 0 (1 standard drink = 0.6 oz pur e alcohol) Housing Stability - SDOH Screener Answer Date Recorded What is your living situation today? Steady hous ing 08/17/2024 Do you need help with Housing/Fci resources? Not on file 08/17/2024 Patient indicated [...] Date Recorded PHQ-9 Total Score 3 08/17/2024 [place] Depression Scale Score Not o n file [...] phone, visiting friends or family, going to nondenominational or club meetings) No 08/17/2024 Patient indicated no issues from the most recent THRIVE questionnaire Not on file 08/17/2024 Adolescent Depression Answer Date Recor ded PHQ-9 Total Score 3 08/17/2024 [place] Depression Scale Score Not o n file [...] Info) Description 02/05/2025 3:00 PM EDT Lab [facility] [address] [place] [address] 02/21/2025 1:40 PM EDT [facility] [address] [place] [address] Cesar Grullon MD 500 [facility], [address] [place] [address] 04/16/2025 3:10 PM EST [facility] [address] [place] [address] [place] PA [address] [place] [address] documented as of this encounter Visit Diagnoses Not on filedocumented in this encounter Care Teams Slot Floor Supervisor Relationship Specialty Start Date End Date Cesar Grullon MD 500 [facility], [address] [place] [address] PCP - General Family Medicine 04/22/23 Sara Viramontes MD [address] [place] [address] Physician Hematology and Oncology 01/28/23 Violet Salguero, JACOB Registered Nurse Medical Oncology 01/28/23 Jim Alfredo DO [address] [place] [address] Surgeon General Surgery 02/03/[address] [facility] Nurse 03/12/24 Pepper Lieberman, COAT BASTER 500 [facility] [address] [place] [address] Nurse Practitioner Family Medicine 12/04/24 documented as of this encounter
--- OUTSIDE RECORDS SUMMARY | 2025-01-24 19:33 | XMS_ITS ---
Author Organization [facility] Address [address] [place] [address] Care Team Providers Care Water Pump Assembler Name Role Phone Sara Viramontes MD Unavailable Violet Salguero RN Unavailable Unavailable Jim Alfredo DO Unavailable [phone] Cesar Grullon MD Primary Care Provider Romelia Rodriguez LPN Unavailable Unavailtroy e Pepper Lieberman NP Unavailable [phone] CMS - Chronic Care Management Status:Enrolled (Active) Start date:03/09/2024 Enrollment date:03/09/2024 Related social drivers of health:Tobacco Use, Fall Risk Overview Chronic Care Management Program that patient agrees to be apart of and is aware of billing that is made on behalf of the services provided. Case Team Name Relationship Phone Romelia Rodriguez LPN(Responsible Staff) CCM Nurs e Continued Care and Services Coordination
--- OUTSIDE RECORDS SUMMARY | 2025-01-24 19:33 | XMS_ITS | Patient Health Record ---
Author Organization [facility] [address] [facility] Location Address [address] [place] [address] Care Team Providers Care Bisque Grader Name Role Phone Jose De Jesus WOOD, Lenin Primary Care Provider Keturah Reis MD, Reji Unavailable [phone] Reason For Referral No Information Problems Problem Type SNOMED Code ICD Code Onset Dates Problem Status W/U Status Risk Notes Problem Anesthesia of skin ([id number]) Anesthesia of skin (R20.0) 03/07/2015 Active confirmed Plan Of Treatment No Information Insurance Providers Payer Name Payer Address Payer Phone Subscriber Number Group Number Insured Name Patient Relationship to Insured Coverage Start Date Coverage End Date [facility] [address] [place] [address] [id number] MixMauricio Self - patient is the insured
--- OUTSIDE RECORDS SUMMARY | 2025-01-24 19:33 | XMS_ITS | Encounter Summary ---
Author Organization [facility] Address [address] [place] [address] Care Team Providers Care Engraver Set Up Operator Name Role Phone Sara Viramontes MD Unavailable Violet Salguero RN Unavailable Unavailable Jim Alfredo DO Unavailable [phone] Cesar Grullon MD Primary Care Provider Romelia Rodriguez LPN Unavailable UnavailPepper Patton MANAGER MEAT Unavailable [phone] Encounter Details Date Type Department Care Team (Late st Contact Info) Description 06/14/2023 Pharmacy Visit [facility] [address] [place] [address] Social History Tobacco Use Types [...] Info) Description 02/05/2025 3:00 PM EDT Lab [facility] [address] [place] [address] 02/21/2025 1:40 PM EDT Office Visit [facility] [address] [place] [address] Cesar Grullon MD 500 [facility], [address] [address] 04/16/2025 3:10 PM EST Office Visit [facility] [address] [place] [address] [place] PA [address] [place] [address] documented as of this encounter Visit Diagnoses Not on filedocumented in this encounter Care Teams Engraver Set Up Operator Relationship Specialty Start Date End Date Cesar Grullon MD [address] [address] PCP - General Family Medicine 04/22/23 Sara Viramontes MD [address] [place] [address] Physician Hematology and Oncology 01/28/23 Violet Salguero, RN Registered Nurse Medical Oncology 01/28/23 Jim Alfredo DO [address] [place] [address] Surgeon General Surgery 02/03/23 Romelia Rodriguez LPN [facility]CM Nurse 03/12/24 Pepper Lieberman, MANAGER MEAT [address] [address] Nurse Practitioner Family Medicine 12/04/24 documented as of this encounter
--- OUTSIDE RECORDS SUMMARY | 2025-01-24 19:33 | XMS_ITS | Encounter Summary ---
Author Organization [facility] Address [address] [place] [address] Care Team Providers Care Director Financial Systems Name Role Phone Lenin Dela Cruz MD Primary Care Provider [phone] Sara Viramontes MD Unavailable Violet Salguero RN Unavailable Unavailable Jim Alfredo DO Unavailable [phone] Cesar Grullon MD Primary Care Provider [phone] Cesar Grullon MD Primary Care Provider [phone] Romelia Rodriguez LPN Unavailable UnavailPepper Patton EARRING MAKER Unavailable [phone] Encounter Details Date Type Department Care Team (Late st Contact Info) Description 03/26/2023 Pharmacy Visit [facility] [address] [place] [address] Social History Tobacco Use Types [...] PM EDT Lab [facility] [address] [place] [address] 02/21/2025 1:40 PM EDT Office Visit [facility] [address] [place] [address] Cesar Grullon MD 500 [facility], [address] [address] 04/16/2025 3:10 PM EST Office Visit [facility] [address] [place] [address] [place] PA [address] [place] [address] documented as of this encounter Visit Diagnoses Not on filedocumented in this encounter Additional Health Concerns Infection Onset Date Last Indicated Resolved Time PUI COVID 05/31/2023 05/31/2023 05/31/2023 12:5 5 PM EST documented as of this encounter Care Teams Director Financial Systems Relationship Specialty Start Date End Date Lenin Dela Cruz MD [address] [place] [address] PCP - General Family Medicine 04/12/18 04/06/23 Cesar Grullon MD 500 [facility], [facility] [address] [place] [address] PCP - General Family Medicine 04/07/23 04/19/23 Cesar Grullon MD 500 [facility], [facility] [address] [place] [address] PCP - General Family Medicine 04/22/23 Sara Viramontes MD [address] [place] [address] Physician Hematology and Oncology 01/28/23 Violet Salguero, RN Registered Nurse Medical Oncology 01/28/23 Jim Alfredo DO [address] [place], [place] [address] Surgeon General Surgery 02/03/23 Romelia Rodriguez LPN [facility] Nurse 03/12/24 Pepper Lieberman, EARRING MAKER 186 [facility] [address] [place] [address] Nurse Practitioner Family Medicine 12/04/24 documented as of this encounter
--- OUTSIDE RECORDS SUMMARY | 2025-01-24 19:33 | XMS_ITS | Encounter Summary ---
Author Organization [facility] Address [address] [place] [address] Care Team Providers Care Assembler Erector Name Role Phone Sara Viramontes MD Unavailable Violet Salguero RN Unavailable Unavailable Jim Alfredo DO Unavailable [phone] Cesar Grullon MD Primary Care Provider [phone] Romelia Rodriguez LPN Unavailable UnavailPepper Patton CORONER FORENSIC TECHNICIAN Unavailable [phone] Encounter Details Date Type Department Care Team (Late st Contact Info) Description 06/03/2023 Pharmacy Visit [facility] [address] [place] [address] Social History Tobacco Use Types [...] Info) Description 02/05/2025 3:00 PM EDT Lab [facility] [address] [place] [address] 02/21/2025 1:40 PM EDT Office Visit [facility] [address] [place] [address] Cesar Grullon MD 500 [facility], [address] [address] 04/16/2025 3:10 PM EST Office Visit [facility] [address] [place] [address] [place] PA [address] [place] [address] documented as of this encounter Visit Diagnoses Not on filedocumented in this encounter Care Teams Assembler Erector Relationship Specialty Start Date End Date Cesar Grullon MD [address] [address] PCP - General Family Medicine 04/22/23 Sara Viramontes MD [address] [place] [address] Physician Hematology and Oncology 01/28/23 Violet Salguero, RN Registered Nurse Medical Oncology 01/28/23 Jim Alfredo DO [address] [place] [address] Surgeon General Surgery 02/03/23 Romelia Rodriguez LPN [facility] Nurse 03/12/24 Pepper Lieberman, CORONER FORENSIC TECHNICIAN [address] [address] Nurse Practitioner Family Medicine 12/04/24 documented as of this encounter
--- OUTSIDE RECORDS SUMMARY | 2025-01-24 19:33 | XMS_ITS | Clinical Summary ---
Author Organization [facility] Address [address] [place] [address] Care Team Providers Care Counter Help Name Role Phone Sara Viramontes MD Unavailable Violet Salguero RN Unavailable Unavailable Jim Alfredo DO Unavailable [phone] Cesar Grullon MD Primary Care Provider Romelia Rodriguez LPN Unavailable UnavailPepper Patton NP Unavailable [phone] Allergies No known active allergies Medications levothyroxine (SYNTHROID) 50 MCG tabletIndications: Other specified hypothyroidism TAKE 1 TABLET(50 MCG) BY MOUTH EVERY MORNING BEFORE BREAKFAST 90 tablet 3 4 Active valACYclovir (VALTREX) 500 MG tabletIndications: Herpes TAKE 2 TABLETS(1000 MG) BY MOUTH DAILY 180 tablet 3 5 Active gabapentin (NEURONTIN) 300 MG capsuleIndications :Chronic pain syndrome,Closed fracture of ramus of left pubis with delayed healing, subsequent encounter,Chronic right shoulder pain Take 1 capsule (300 mg total) by mouth at bedtime as needed for back pain 90 capsule 2 5 08/18/19 26 Active lidocaine (LIDODERM) 5 % patchIndications:R ight shoulder injury, initial encounter Place 1 patch on the skin every 12 (twelve) hours Remove & Discard patch within 12 hours or as directed by 10 patch 5 Active LORazepam (ATIVAN) 0.5 MG tabletIndications: MASSIMO (generalized anxiety disorder),Panic attacks Take 1 tablet (0.5 mg total) by mouth daily as needed for anxiety 6 tablet Active clomiPHENE (CLOMID) 50 MG tabletIndications: Low testosterone in male Take 1 tablet (50 mg total) by mouth daily 30 tablet 2 5 03/25/20 Active Active Problems Problem Noted Date Diagnosed Date Adjustment disorder with mixed anxiety and depre ssed mood 01/24/2025 Panic attacks 04/11/2024 MDD (major depressive disord er), recurrent severe, without psychosis 07/06/2023 MASSIMO (generalized anxiety disorder) 06/30/2023 Degeneration of intervertebral disc of lumbar re gion 06/21/2023 Dilated bile duct 06/21/2023 Hypochloremia 06/21/2023 Hypoxia 06/21/2023 Left lower lobe pneumonia 06/21/2023 [place] toxicity 06/21/2023 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 Vomiting 06/21/2023 Hepatocellular carcinoma 01/29/2023 Liver nodule 01/12/2023 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, l eft 01/08/2023 Closed fracture of ramus of left pubis Other specified hypothyroidism 01/06/2023 Suicidal ideation 01/06/2023 Generalized abdominal pain 01/06/2023 Other constipation 01/06/2023 Substance use disorder 01/06/2023 Hyponatremia 01/05/2023 Traumatic fracture of cervical spine 08/13/2022 Traumatic closed fracture of C6 vertebra with minimal displacement, initial encounter 08/13/2022 Fracture of pelvis 01/29/2022 Mood disorder 04/09/2020 Atrial fibrillation 07/04/2018 Resolved Problems Problem Noted Date Diagnosed Date Resolved Date Chronic hepatitis C without hepatic coma 03/07/2024 08/17/2024 Cannabis use disorder, severe, dependence 06/21/2023 08/17/2024 Low back pain 06/21/2023 03/07/2024 Major depressive disorder, r ecurrent episode with anxious distress 04/02/2023 03/07/2024 Anxiety 03/30/2023 03/07/2024 Depression with anxiety 01/06/2023 10/0 01/2024 Seizure 08/13/2022 08/17/2024 Chest pain 07/04/2018 03/07/2024 Encounters Date Type Department Care Team Description 01/24/2025 5:00 PM EDT Hospital Encounter [facility] - [address] [phone] Cesar Grullon MD 01/22/2025 9:59 AM EDT - 01/24/2025 5:06 PM EDT Hospital Encounter [facility] - [address] [phone] Andrea Iqbal MD Lewis, Claire J, MD Swiatek, MD Ritesh Camarena Luca, MD Malinconico, MD Tierney Fontenot, MD Caleb Vásquez, MD Lucia Suicidal ideation Discharge Disposition: Psychiatric Hospital other than [facility] 01/22/2025 Travel 01/18/2025 Pharmacy Visit [facility] [address] [place] [phone] 01/16/2025 Telephone [facility] [address] [place] [phone] Cesar Grullon MD Orders 01/11/2025 Chronic Care Management [facility] [address] [place] [phone] Romelia Rodriguez LPN Atrial fibrillation (HCC) (Primary Dx); MDD (major depressive disorder), recurrent severe, without psychosis (HCC) 01/01/2025 Telephone [facility] [address] [place] [phone] Cesar Grullon MD Prior Authorization 12/25/2024 Telephone [facility] [address] [place] [phone] Cesar Grullon MD Advice Only 12/20/2024 Telephone [facility] [address] [place] [phone] Lidia Jamison 12/14/2024 2:20 PM EDT Telemedicine [facility] [address] [place] [phone] Cesar Grullon MD Low testosterone in male (Primary Dx); MDD (major depressive disorder), recurrent severe, without psychosis (HCC); Mood disorder; MASSIMO (generalized anxiety disorder); Housing insecurity 12/14/2024 Patient Outreach [facility] Tevin Bowles 12/12/2024 Chronic Care Management [facility] [address] [place] [phone] Romelia Rodriguez LPN Atrial fibrillation (HCC) (Primary Dx); MDD (major depressive disorder), recurrent severe, without psychosis (HCC) 12/03/2024 Telephone [facility] [address] [place] [phone] Cesar Grullon MD Schedule Or Reschedule A Visit 11/26/2024 Refill [facility] [address] [place] [phone] Cesar Grullon MD Low testosterone 11/20/2024 Chronic Care Management [facility] [address] [place] [phone] Romelia Rodriguez, RIDING TEACHER Atrial fibrillation (HCC) (Primary Dx); MDD (major depressive disorder), recurrent severe, without psychosis (HCC) 11/02/2024 Refill [facility] [address] [place] [phone] Cesar Grullon MD Low testosterone 10/31/2024 9:00 AM EDT Lab [facility] - [address] [phone] Hepatocellular carcinoma (HCC); Low testosterone 10/31/2024 Telephone [facility] [address] [place] [phone] Cesar Grullon MD Results 10/31/2024 Results Follow-Up [facility] [address] [place] [phone] Cesar Grullon MD CreatININE, serum, Testosterone 08/28/2024 Procedure Pass [facility] - [address] [phone] from Last 3 Months Immunizations Immunization Administration Dates Next Due Hepatitis A 07/06/2023 Influenza (Fluad), Quadrival ent, Adjuvanted, Preservative Free 02/20/2021 Influenza (Flucelvax), Egg F ree, Quadrivalent with Preservative 07/03/2019 Influenza TIV (IM) 04/06/2013 Influenza, Adult 03/01/2022 Influenza, High Dose, Quadrivalent, Preservative Free 03/09/2022,04/01/2020 Moderna (Covid-19) mRNA Vaccine, 100 mcg/0.5 ml, PF 03/26/2021,08/03/2020 Pfizer (Covid-19) mRNA Vaccine, Preservative Pelon e 08/24/2020,08/03/2020 Pneumococcal Conjugate 13-Valent (PCV 13/Prevnar 13) 04/17/2021,12/25/2020 Pneumococcal Polysaccharide (PPSV 23/Pneumovax) 02/05/2021,05/18/2017 TD 2-2Lfu PRESERVATIVE FREE IM 07/06/2023 Zoster Recombinant (Shingrix) Vaccine 02/05/2021 ,12/25/2020 Family History Medical History Relation Name Comments No Known Problems Brother 4 No Known Problems Cousin No Known Problems Daughter No Known Problems Father No Known Problems Maternal Grandfather No Known Problems Maternal Grandmother No Known Problems Mother No Known Problems Paternal Grandfather No Known Problems Paternal Grandmother No Known Problems Sister No Known Problems Son 2 Asthma Neg Hx Cancer Neg Hx Diabetes Neg Hx Heart failure Neg Hx Hyperlipidemia Neg Hx Hypertension Neg Hx Migraines Neg Hx Osteoarthritis Neg Hx Rashes / Skin problems Neg Hx Rheum arthritis Neg Hx Seizures Neg Hx Stroke Neg Hx Thyroid disease Neg Hx Relation Name Status Comments Brother 4 Alive Cousin Daughter Alive Father Maternal Grandfather Maternal Grandmother Mother Paternal Grandfather Paternal Grandmother Sister Son 2 Alive Social History Tobacco Use Types Packs/Day Years Used Date Smoking Tobacco: Never Smokeless Tobacco: Never Tobacco Cessation:Counseling Given: Not Answered Alcohol Use Standard Drinks/Week Comments No 0 (1 standard drink = 0.6 oz pur e alcohol) Housing Stability - SDOH Screener Answer Date Recorded What is your living situation today? Steady hous ing 08/17/2024 Do you need help with Housing/Retirement resources? Not on file 08/17/2024 Patient indicated [...] Date Recorded PHQ-9 Total Score 3 08/17/2024 [place] Depression Scale Score Not o n file [...] phone, visiting friends or family, going to shinto or club meetings) No 08/17/2024 Patient indicated no issues from the most recent THRIVE questionnaire Not on file 08/17/2024 Adolescent Depression Answer Date Recor ded PHQ-9 Total Score 3 08/17/2024 [place] Depression Scale Score Not o n file [...] Orientation Straight 08/14/2024 10 :23 AM EDT Last Filed Vital Signs Vital Sign Reading [...] Mass Index 24.21 01/22/2025 10:06 AM EDT Plan of Treatment Upcoming Encounters Date Type Department Care Team (Late st Contact Info) Description 02/05/2025 3:00 PM EDT Lab [facility] [address] [place] [phone] 02/21/2025 1:40 PM EDT [facility] [address] [place] [phone] Cesar Grullon MD [address] [facility], [address] [place] [address] 04/16/2025 3:10 PM EST [facility] [address] [place] [phone] [place] [facility] [address] [place] [address] Health Maintenance Due Date Last Done Comments CT Colonography 02/04/2000 Colonoscopy 02/04/2000 FIT-DNA 02/04/2000 FOBT 02/04/2000 Sigmoidoscopy 02/04/2000 RSV Immunization Patients 60+ years or (1 - Risk 60-74 years 1-dose series) 2015 Hepatitis A Vaccine (2 of 2 - Risk 2-dose series) 01/04/2024 07/06/2023 COVID-19 Vaccine ( season) 2024 09/01/2021, 04/06/2021, 03/26/2021, Additional history exists Influenza Vaccine (#1) 2025 2, 03/09/2022, 03/01/2022, Additional history exists Medicare Annual Wellness 08/18/2025 08/17/2024 Cholesterol Screening 07/06/2028 07/06/2023 DTaP,Tdap,and Td Vaccines (4 - Td or Tdap) 07/06/2033 07/06/2023, 08/16/2018, 03/28/2007 Zoster Standard Vaccine Completed 02/05/2021, 12/25 Pneumococcal Vaccines 50+ yrs Completed 04/17/2021, 02/05/2021, 12/25/2020, Additional history exists Hepatitis B Screening Completed 08/21/2024 Colorectal Cancer Screening Discontinued HIB Vaccines Aged Out No longer eligi ble based on patient's age to complete this topic Procedures Procedure Name Priority Date/Time Associated Diagnosis Comments ECG 12-LEAD STAT 01/22/2025 10:49 PM EDT TOXICOLOGY SCREEN, URINE (NON FCU) STAT 01/22/2025 10:14 AM EDT SALICYLATE LEVEL STAT 01/22/2025 10:14 AM EDT ACETAMINOPHEN LEVEL STAT 01/22/2025 10:14 AM EDT TOXICOLOGY SCREEN, URINE STAT 01/22/2025 10:14 AM EDT ETHANOL STAT 01/22/2025 10:14 AM EDT COMPREHENSIVE METABOLIC PANEL STAT 01/22/2025 10:14 AM EDT CBC AND AUTO DIFFERENTIAL STAT 01/22/2025 10:14 AM EDT TESTOSTERONE Routine 10/31/2024 9:11 AM EDT Low testosterone CREATININE SERUM Routine 10/31/2024 9:11 AM EDT Hepatocellular carcinoma (HCC) LIPID PANEL Routine 07/06/2023 10:16 AM EST Pure hypercholesterolemia from Last 3 Months or Most Recently Relevant to Health Maintenance Results * ECG 12-LEAD (01/22/2025 10:49 PM EDT) Kathy Chavez MD - 01/22/2025 10:49 PM EDT Kathy [...] Detected None Detected 01/22/2025 12:54 PM EDT [facility] Barbiturates Qualitative, Ur None Detected None Detected 01/22/2025 12:54 PM EDT [facility] Benzodiazepines Qualitative, Ur None Detected None Detected 01/22/2025 12:54 PM EDT [facility] Methadone Qualitative, Ur None Detected None Detected 01/22/2025 12:54 PM EDT [facility] Opiates Qualitative, Ur None Detected None Detected 01/22/2025 12:54 PM EDT [facility] Cannabinoids Qualitative, Ur Detected(A) None Detected 01/22/2025 12:54 PM EDT [facility] Cocaine Qualitative, Ur None Detected None Detected 01/22/2025 12:54 PM EDT [facility] Oxycodone Qualitative Urine None Detected None Detected 01/22/2025 12:54 PM EDT [facility] Buprenorphine Qualitative Urine None Detected None Detected 01/22/2025 12:54 PM EDT [facility] Fentanyl Qualitative, Ur None Detected None Detected 01/22/2025 12:54 PM EDT [facility] Creatinine, Urine 42.0 20.0 - 400.0 mg/dL 01/22/2025 12:54 PM EDT [facility] Urine Urine specimen obtained by clean catch procedure / Unknown Collection / Unknown 01/22/2025 10:14 AM EDT 01/22/2025 12:24 PM EDT [facility] - 01/22/2025 12:54 PM EDT This [...] Andrea Iqbal MD URINE ORDERABLES Final Result [facility] [address] [place] [address] * (ABNORMAL) CBC and Auto Differential (01/22/2025 10:14 AM EDT) WBC 6.5 4.8 - 11.2 10*3/ L 01/22/2025 10:22 AM EDT [facility] RBC 3.81(L) 4.00 - 5.90 10*6/ L 01/22/2025 10:22 AM EDT [facility] HGB 13.7(L) 14.0 - 17.2 g/dL 01/22/2025 10:22 AM EDT [facility] HCT 39.4(L) 40.0 - 52.0 % 01/22/2025 10:22 AM EDT [facility] MCV 103.4(H) 82.0 - 98.0 fL 01/22/2025 10:22 AM EDT [facility] MCH 36.0(H) 27.0 - 35.0 pg 01/22/2025 10:22 AM EDT [facility] MCHC 34.8 32.0 - 37.0 g/dL 01/22/2025 10:22 AM EDT [facility] RDW 13.6 12.0 - 15.0 % 01/22/2025 10:22 AM EDT [facility] PLT 134(L) 150 - 400 10*3/ L 01/22/2025 10:22 AM EDT [facility] MPV 9.8 7.0 - 14.0 fL 01/22/2025 10:22 AM EDT [facility] Neut % 70.0 45.0 - 85.0 % 01/22/2025 10:22 AM EDT [facility] Immature Granulocytes % 0.3 0 - 5.0 % 01/22/2025 10:22 AM EDT [facility] Lymph % 19.8 15.0 - 45.0 % 01/22/2025 10:22 AM EDT [facility] [place] % 9.0 0.0 - 12.0 % 01/22/2025 10:22 AM EDT [facility] Eos % 0.6 0.0 - 7.0 % 01/22/2025 10:22 AM EDT [facility] Baso % 0.3 0.0 - 3.0 % 01/22/2025 10:22 AM EDT [facility] NRBC% 0 0 /100 WBC /100 WBC 01/22/2025 10:22 AM EDT [facility] Neut # 4.5 2.2 - 9.5 10*3/ L 01/22/2025 10:22 AM EDT [facility] Immature Granulocytes Absolute 0.02 0.00 - 0.56 10*3/ L 01/22/2025 10:22 AM EDT [facility] Lym # 1.3 0.7 - 5.0 10*3/ L 01/22/2025 10:22 AM EDT [facility] [place] # 0.6 0.0 - 1.3 10*3/ L 01/22/2025 10:22 AM EDT [facility] Eos # 0.0 0.0 - 0.4 10*3/ L 01/22/2025 10:22 AM EDT [facility] Baso # 0.0 0.0 - 0.3 10*3/ L 01/22/2025 10:22 AM EDT [facility] Blood Venipuncture / Unknown 01/22/2025 10:14 AM EDT 01/22/2025 10:15 AM EDT us Andrea Iqbal MD LAB BLOOD ORDERABLES Final Resu lt Performing Organization Address [facility] Co de Phone Number [facility] [address] [place] [phone] * Ethanol (01/22/2025 10:14 AM EDT) Ethanol Lvl <3 <10 mg/dL 01/22/2025 10:38 AM EDT [facility] Blood Venipuncture / Unknown 01/22/2025 10:14 AM EDT 01/22/2025 10:15 AM EDT us Andrea Iqbal MD LAB BLOOD ORDERABLES Final Resu lt Performing Organization Address [facility] Co de Phone Number [facility] [address] [place] [phone] * (ABNORMAL) Acetaminophen level (01/22/2025 10:14 AM EDT) Acetaminophen Level <2(L) 10 - 20 ug/mL 01/22/2025 10:38 AM EDT [facility] Blood Venipuncture / Unknown 01/22/2025 10:14 AM EDT 01/22/2025 10:15 AM EDT us Andrea Iqbal MD LAB BLOOD ORDERABLES Final Resu lt Performing Organization Address [facility] Co de Phone Number [facility] [address] [place] [phone] * Salicylate level (01/22/2025 10:14 AM EDT) Salicylate <3.0 <30.0 mg/dL 01/22/2025 10:38 AM EDT [facility] Blood Venipuncture / Unknown 01/22/2025 10:14 AM EDT 01/22/2025 10:15 AM EDT Andrea Iqbal MD LAB BLOOD ORDERABLES Final Resu lt [facility] [address] [place] [address] * (ABNORMAL) Comprehensive metabolic panel (01/22/2025 10:14 AM EDT) Pathologist [facility] Sodium 136 136 - 145 mEq/L 01/22/2025 10:37 AM EDT [facility] Potassium 4.1 3.5 - 5.1 mEq/L 01/22/2025 10:37 AM EDT [facility] Chloride 100 98 - 109 mEq/L 01/22/2025 10:37 AM EDT [facility] CO2 29 20 - 31 mEq/L 01/22/2025 10:37 AM EDT [facility] Anion Gap 7 4 - 15 mEq/L 01/22/2025 10:37 AM EDT [facility] Glucose 123(H) 70 - 100 mg/dL 01/22/2025 10:37 AM EDT [facility] Creatinine 1.00 0.60 - 1.10 mg/dL 01/22/2025 10:37 AM EDT [facility] eGFR (Male) >60 60 - 115 mL/min 01/22/2025 10:37 AM EDT [facility] BUN 8(L) 9 - 23 mg/dL 01/22/2025 10:37 AM EDT [facility] Calcium 8.6 8.3 - 10.6 mg/dL 01/22/2025 10:37 AM EDT [facility] Total Protein 7.2 5.7 - 8.2 g/dL 01/22/2025 10:37 AM EDT [facility] Albumin 4.6 3.2 - 4.8 g/dL 01/22/2025 10:37 AM EDT [facility] A/G Ratio 1.8 1.0 - 2.3 01/22/2025 10:37 AM EDT [facility] Total Bilirubin 0.4 0.2 - 1.0 mg/dL 01/22/2025 10:37 AM EDT [facility] AST 80(H) 13 - 40 U/L 01/22/2025 10:37 AM EDT [facility] Alkaline Phosphatase 101 46 - 116 IU/L 01/22/2025 10:37 AM EDT [facility] ALT 94(H) 7 - 40 U/L 01/22/2025 10:37 AM EDT [facility] Blood Venipuncture / Unknown 01/22/2025 10:14 AM EDT 01/22/2025 10:15 AM EDT Andrea Iqbal MD LAB BLOOD ORDERABLES Final Resu lt Performing Organization Address City/[facility] Co de Phone Number [facility] [address] [place] [phone] * Testosterone (10/31/2024 9:11 AM EDT) Testosterone 176 87 - 780 ng/dl 10/31/2024 10:17 AM EDT [facility] Blood Venipuncture / Unknown 10/31/2024 9:11 AM EDT 10/31/2024 9:11 AM EDT Cesar Grullon MD LAB BLOOD ORDERABLES Final R esult Performing Organization Address City/[facility]/ZIP Co de Phone Number [facility] [address] [place] [address] * CreatININE, serum (10/31/2024 9:11 AM EDT) Creatinine 0.91 0.60 - 1.10 mg/dL 10/31/2024 10:11 AM EDT [facility] Blood Venipuncture / Unknown 10/31/2024 9:11 AM EDT 10/31/2024 9:11 AM EDT Cesar Grullon MD LAB BLOOD ORDERABLES Final R esult Performing Organization Address [facility] Co de Phone Number [facility] [address] [place] [address] * (ABNORMAL) Lipid panel (07/06/2023 10:16 AM EST) Cholesterol 132 <200 mg/dL 07/06/2023 11:43 AM EST [facility] Triglycerides 77 <150 mg/dL 07/06/2023 11:43 AM EST [facility] HDL 34.4(L) >=60.0 mg/dL 07/06/2023 11:43 AM EST [facility] LDL Calculated 82 0 - 100 mg/dL 07/06/2023 11:43 AM EST [facility] Cardiac Risk Factor 3.8 0.0 - 5.0 07/06/2023 11:43 AM EST [facility] Blood Venipuncture / Unknown 07/06/2023 10:16 AM EST 07/06/2023 10:16 AM EST Narrative [facility] - 07/06/2023 11:43 AM EST Cardiac Risk Factor: Males Females 2x Average Risk 9.6 7.1 3x Average Risk 23.4 11.0 Cesar Grullon MD LAB BLOOD ORDERABLES Final R esult Performing Organization Address [facility] Co de Phone Number [facility] [address] [place] [address] from Last 3 Months or Most Recently Relevant to Health Maintenance Insurance [facility] [employer] Advance Directives For more information, please contact: [phone] * Full Code (Latest Code Status on File) Date Activated Date Inactivated Comments 01/22/2025 3:11 PM * Full Code Date Activated Date Inactivated Comments 03/04/2023 3:33 PM 03/10/2023 5:14 PM * Full Code Date Activated Date Inactivated Comments 03/01/2023 3:25 PM 03/04/2023 3:33 PM * Full Code Date Activated Date Inactivated Comments 01/05/2023 1:03 PM 01/12/2023 6:22 PM * Full Code Date Activated Date Inactivated Comments 08/13/2022 5:31 AM 08/13/2022 9:15 PM Care Teams Counter Help Relationship Specialty Start Date End Date Cesar Grullon MD [address] [facility] [place] [address] PCP - General Family Medicine 04/22/23 Sara Viramontes MD [address] [place] [id number] Physician Hematology and Oncology 01/28/23 Violet Salguero, JACOB Registered Nurse Medical Oncology 01/28/23 Jim Alfredo DO [address] [place] [address] Surgeon General Surgery 02/03/23 Romelia Rodriguez LPN [facility] Nurse 03/12/24 Pepper Lieberman NP [address] [place] [address] Nurse Practitioner Family Medicine 12/04/24
--- OUTSIDE RECORDS SUMMARY | 2025-01-24 19:33 | XMS_ITS | Encounter Summary ---
Author Organization [facility] Address [address] [place] [address] Care Team Providers Care Store Standards Associate Name Role Phone Sara Viramontes MD Unavailable Violet Salguero RN Unavailable Unavailable Jim Alfredo DO Unavailable [phone] Cesar Grullon MD Primary Care Provider [phone] Romelia Rodriguez LPN Unavailable UnavailPepper Patton AUXILIARY POWER EQUIPMENT OPERATOR Unavailable [phone] Reason for Referral * Diagnostic Imaging (Routine) - Pending Review Specialty Diagnoses / Procedures Referred By Contkatelyn t Referred To Contact Radiology Diagnoses Hepatocellular carcinoma (HCC) Procedures CT abdomen pelvis with and without contrast CT abdomen pelvis with contrast Sara Viramontes MD [address] [place] [address] Phone: tel: fax: Referral ID Status Reason Start Date Expiration Date V isits Requested Visits Authorized [id number] Pending Review 06/17/2023 06/17/2025 1 1 Encounter Details Date Type Department Care Team (Latest Contact Info) Description 06/22/2023 Ancillary Orders [facility] [address] [place] [phone] Sara Viramontes MD [address] [place] [address] Hepatocellular carcinoma (HCC) (Primary Dx) Social History Tobacco Use Types Packs/Day Years [...] Info) Description 02/05/2025 3:00 PM EDT Lab [facility] [address] [place] [address] 02/21/2025 1:40 PM EDT [facility] [address] [place] [address] Cesar Grullon MD 500 [facility], [address] [place] [address] 04/16/2025 3:10 PM EST [facility] [address] [place] [address] Bear [place] PA [address] [place] [address] documented as of this encounter Results * CT abdomen pelvis with and without contrast (06/22/2023 1:26 PM EST) Anatomical Region Laterality Modality Abdomen, Ortho Abdomen Computed Tomography 06/22/2023 3:48 PM EST Impressions 06/22/2023 4:00 PM EST IMPRESSION: No indication of recurrent or new hepatic mass on CT. Ideally, MRI follow-up can be undertaken per patient tolerance. Additional stable incidental findings discussed above. RS: [id number] Narrative 06/22/2023 4:00 PM EST History: Follow-up hepatocellular carcinoma resected 03/21. CT OF THE ABDOMEN WITHOUT AND WITH IV CONTRAST Comparison: CT 03/13/2023, MRI 01/08/2023, CT 01/05/2023 Technique: Dynamic liver protocol was performed. The exam was performed with the following dose reduction techniques: automated exposure control and adjustment of milliamperage and/or kilovoltage according to patient size. Contrast reaction: None. Contrast extravasation: None. FINDINGS: Lung bases: Clear. Liver: Segment #5 mass resection changes appear stable from the most recent CT . Prior to contrast, liver shows numerous areas of decreased attenuation consistent with geographic steatosis. In the arterial phase, scattered areas of faint contrast blushing are present through the liver, most numerous in the subcapsular regions and likely reflecting vascular shunts. No concerning mass or enhancement identified at the surgical margin or elsewhere in the liver. Gallbladder/biliary system: Cholecystectomy. Stable prominence of the biliary system. Pancreas: Normal enhancement. No surrounding fluid or stranding. Stable mild enlargement of the pancreatic duct through the pancreatic head. Spleen: Normal size. Normal enhancement. Scattered punctate granulomas again noted in the spleen. Adrenal glands: Unremarkable. No nodules. Kidneys: Kidneys are symmetrical in size with normal nephrograms. No renal cortical abnormalities or hydronephrosis. Incidental 2 mm nonobstructive stone is present in the mid right kidney. Aorta/vasculature: The aorta is normal in size. There is moderate atherosclerotic disease. Gastrointestinal: Small bowel, large bowel, and stomach are not dilated. There is a large stool burden suggesting constipation. Normal appendix identified. Genitourinary: Unremarkable urinary bladder. Mild prostate enlargement. Ascites: None. Adenopathy: 2.2 x 1.5 cm lymph node near the manuela hepatis has not significantly changed. Musculoskeletal structures/abdominal wall: Stable chronic subcortical cysts versus erosions across the left SI joint. There is a chronic insufficiency fracture deformity in the peripheral aspect of the right sacral body which has been present previously. Stable appearing nonunited left pubic rami fractures. Procedure Note Eva Obando MD - 06/22/2023 History: Follow-up hepatocellular carcinoma resected 03/21. CT OF THE ABDOMEN WITHOUT AND WITH IV CONTRAST Comparison: CT 03/13/2023, MRI 01/08/2023, CT 01/05/2023 Technique: Dynamic liver protocol was performed. The exam was performedwith the following dose reduction techniques: automated exposure controland adjustment of milliamperage and/or kilovoltage according to patientsize. Contrast reaction: None. Contrast extravasation: None. FINDINGS: Lung bases: Clear. Liver: Segment #5 mass resection changes appear stable from the mostrecent CT . Prior to contrast, liver shows numerous areas of decreasedattenuation consistent with geographic steatosis. In the arterial phase,scattered areas of faint contrast blushing are present through the liver, most numerous in the subcapsularregions and likely reflecting vascular shunts. No concerning mass orenhancement identified at the surgical margin or elsewhere in the liver. Gallbladder/biliary system: Cholecystectomy. Stable prominence of thebiliary system. Pancreas: Normal enhancement. No surrounding fluid or stranding. Stablemild enlargement of the pancreatic duct through the pancreatic head. Spleen: Normal size. Normal enhancement. Scattered punctate granulomasagain noted in the spleen. Adrenal glands: Unremarkable. No nodules. Kidneys: Kidneys are symmetrical in size with normal nephrograms. No renalcortical abnormalities or hydronephrosis. Incidental 2 mm nonobstructivestone is present in the mid right kidney. Aorta/vasculature: The aorta is normal in size. There is moderateatherosclerotic disease. Gastrointestinal: Small bowel, large bowel, and stomach are not dilated.There is a large stool burden suggesting constipation. Normal appendixidentified. Genitourinary: Unremarkable urinary bladder. Mild prostate enlargement. Ascites: None. Adenopathy: 2.2 x 1.5 cm lymph node near the manuela hepatis has notsignificantly changed. Musculoskeletal structures/abdominal wall: Stable chronic subcorticalcysts versus erosions across the left SI joint. There is a chronicinsufficiency fracture deformity in the peripheral aspect of the rightsacral body which has been present previously. Stable appearing nonunited left pubic rami fractures. IMPRESSION: No indication of recurrent or new hepatic mass on CT. Ideally, MRIfollow-up can be undertaken per patient tolerance. Additional stable incidental findings discussed above. RS: [id number] Sara Viramontes MD IMG CT ORDERABLES Final Result documented in this encounter Visit Diagnoses Diagnosis Hepatocellular carcinoma (HCC) Malignant neoplasm of liver, primary Hepatocellular carcinoma (HCC)- Primary Malignant neoplasm of liver, primary documented in this encounter Care Teams Store Standards Associate Relationship Specialty Start Date End Date Cesar Grullon MD 500 [facility], [address] [place] [address] PCP - General Family Medicine 04/22/23 Sara Viramontes MD [address] [place] [address] Physician Hematology and Oncology 01/28/23 Violet Salguero, RN Registered Nurse Medical Oncology 01/28/23 Jim Alfredo DO [address] [place] [address] Surgeon General Surgery 02/03/23 Romelia Rodriguez LPN [facility] Nurse 03/12/24 Pepper Lieberman, AUXILIARY POWER EQUIPMENT OPERATOR 500 [facility] [address] [place] [address] Nurse Practitioner Family Medicine 12/04/24 documented as of this encounter
--- OUTSIDE RECORDS SUMMARY | 2025-01-24 19:33 | XMS_ITS | Encounter Summary ---
Author Organization [facility] Address [address] [place] [address] Care Team Providers Care Combination Technician Name Role Phone Sara Viramontes MD Unavailable Violet Salguero RN Unavailable Unavailable Jim Alfredo DO Unavailable [phone] Cesar Grullon MD Primary Care Provider [phone] Romelia Rodriguez LPN Unavailable UnavailPepper Patton DOCUMENTATION ANALYST Unavailable [phone] Encounter Details Date Type Department Care Team (Late st Contact Info) Description 06/10/2023 Pharmacy Visit [facility] [address] [place] [address] Social History Tobacco Use Types [...] Info) Description 02/05/2025 3:00 PM EDT Lab [facility] [address] [place] [phone] 02/21/2025 1:40 PM EDT Office Visit [facility] [address] [place] [address] Cesar Grullon MD 500 [facility], [address] [address] 04/16/2025 3:10 PM EST Office Visit [facility] [address] [place] [address] [place] PA [address] [place] [address] documented as of this encounter Visit Diagnoses Not on filedocumented in this encounter Care Teams Combination Technician Relationship Specialty Start Date End Date Cesar Grullon MD [address] [address] PCP - General Family Medicine 04/22/23 Sara Viramontes MD [address] [place] [address] Physician Hematology and Oncology 01/28/23 Violet Salguero, RN Registered Nurse Medical Oncology 01/28/23 Jim Alfredo DO [address] [place] [address] Surgeon General Surgery 02/03/23 Romelia Rodriguez LPN CCM Nurse 03/12/24 Pepper Lieberman, DOCUMENTATION ANALYST [address] [address] Nurse Practitioner Family Medicine 12/04/24 documented as of this encounter
--- OUTSIDE RECORDS SUMMARY | 2025-01-24 19:33 | XMS_ITS | Encounter Summary ---
Author Organization [facility] Address [address] [place] [address] Care Team Providers Care Mechanical Field Engineer Name Role Phone Sara Viramontes MD Unavailable Violet Salgueor RN Unavailable Unavailable Jim Alfredo DO Unavailable [phone] Cesar Grullon MD Primary Care Provider [phone] Romelia Rodriguez LPN Unavailable UnavailPepper Patton BOBBIN DISKER Unavailable [phone] Encounter Details Date Type Department Care Team (Late st Contact Info) Description 06/02/2023 Pharmacy Visit [facility] [address] [place] [address] Social History Tobacco Use Types [...] Info) Description 02/05/2025 3:00 PM EDT Lab [facility] [address] [place] [phone] 02/21/2025 1:40 PM EDT Office Visit [facility] [address] [place] [address] Cesar Grullon MD 500 [facility], [address] [address] 04/16/2025 3:10 PM EST Office Visit [facility] [address] [place] [address] [place] PA [address] [place] [address] documented as of this encounter Visit Diagnoses Not on filedocumented in this encounter Care Teams Mechanical Field Engineer Relationship Specialty Start Date End Date Cesar Grullon MD [address] [address] PCP - General Family Medicine 04/22/23 Sara Viramontes MD [address] [place] [address] Physician Hematology and Oncology 01/28/23 Violet Salguero, RN Registered Nurse Medical Oncology 01/28/23 Jim Alfredo DO [address] [place] [address] Surgeon General Surgery 02/03/23 Romelia Rodriguez LPN CCM Nurse 03/12/24 Pepper Lieberman, BOBBIN DISKER [address] [address] Nurse Practitioner Family Medicine 12/04/24 documented as of this encounter
--- OUTSIDE RECORDS SUMMARY | 2025-01-24 19:33 | XMS_ITS | Encounter Summary ---
Author Organization [facility][Note 3] Address [address] [place] [address] Care Team Providers Care Rivet Flunky Name Role Phone Sara Viramontes MD Unavailable Violet Salguero RN Unavailable Unavailable Jim Alfredo DO Unavailable [phone] Cesar Grullon MD Primary Care Provider Romelia Rodriguez LPN Unavailable UnavailPepper Patton CAUSE ANALYST Unavailable [phone] Encounter Details Date Type Department Care Team (Late st Contact Info) Description 06/07/2023 Pharmacy Visit [facility] [address] [place] [address] Social History Tobacco Use Types [...] Info) Description 02/05/2025 3:00 PM EDT Lab [facility] [address] [place] [phone] 02/21/2025 1:40 PM EDT Office Visit [facility] [address] [place] [address] Cesar Grullon MD 500 [facility], [address] [address] 04/16/2025 3:10 PM EST Office Visit [facility] [address] [place] [address] [place] PA [address] [place] [address] documented as of this encounter Visit Diagnoses Not on filedocumented in this encounter Care Teams Rivet Flunky Relationship Specialty Start Date End Date Cesar Grullon MD [address] [address] PCP - General Family Medicine 04/22/23 Sara Viramontes MD [address] [place] [address] Physician Hematology and Oncology 01/28/23 Violet Salguero, RN Registered Nurse Medical Oncology 01/28/23 Jim Alfredo DO [address] [place] [address] Surgeon General Surgery 02/03/23 Romelia Rodriguez LPN CCM Nurse 03/12/24 Pepper Lieberman, CAUSE ANALYST [address] [address] Nurse Practitioner Family Medicine 12/04/24 documented as of this encounter
--- OUTSIDE RECORDS SUMMARY | 2025-01-24 19:33 | XMS_ITS | Encounter Summary ---
Author Organization [facility] Address [address] [place] [address] Care Team Providers Care Soils Technician Name Role Phone Lenin Dela Cruz MD Primary Care Provider [phone] Sara Viramontes MD Unavailable Violet Salguero RN Unavailable Unavailable Jim Alfredo DO Unavailable [phone] Cesar Grullon MD Primary Care Provider [phone] Cesar Grullon MD Primary Care Provider [phone] Romelia Rodriguez LPN Unavailable UnavailPepper Patton COFFIN MAKER Unavailable [phone] Encounter Details Date Type Department Care Team (Late st Contact Info) Description 03/14/2023 Pharmacy Visit [facility] [address] [place] [address] Social History Tobacco Use Types [...] PM EDT Lab [facility] [address] [place] [address] 02/21/2025 1:40 PM EDT Office Visit [facility] [address] [place] [address] Cesar Grullon MD 500 [facility], [address] [address] 04/16/2025 3:10 PM EST Office Visit [facility] [address] [place] [address] [place] PA [address] [place] [address] documented as of this encounter Visit Diagnoses Not on filedocumented in this encounter Additional Health Concerns Infection Onset Date Last Indicated Resolved Time PUI COVID 05/31/2023 05/31/2023 05/31/2023 12:5 5 PM EST documented as of this encounter Care Teams Soils Technician Relationship Specialty Start Date End Date Lenin Dela Cruz MD [address] [place] [address] PCP - General Family Medicine 04/12/18 04/06/23 Cesar Grullon MD 500 [facility], [facility] [address] [place] [address] PCP - General Family Medicine 04/07/23 04/19/23 Cesar Grlulon MD 500 [facility], [facility] [address] [place] [address] PCP - General Family Medicine 04/22/23 Sara Viramontes MD [address] [place] [address] Physician Hematology and Oncology 01/28/23 Violet Salguero, RN Registered Nurse Medical Oncology 01/28/23 Jim Alfredo DO [address] [place], [place] [phone] Surgeon General Surgery 02/03/23 Romelia Rodriguez LPN [facility] Nurse 03/12/24 Pepper Lieberman, COFFIN MAKER 178 [facility] [address] [place] [address] Nurse Practitioner Family Medicine 12/04/24 documented as of this encounter
--- OUTSIDE RECORDS SUMMARY | 2025-01-24 19:34 | XMS_ITS | Patient Health Record ---
Author Organization [facility] Address [address] [place], [place] [id number] Care Team Providers Care Research Laboratory Manager Name Role Phone Lenin Dela Cruz Primary Care Provider Jesus Beatty Unavailable Reason For Referral No Information Medications Medication SIG (Take, Route, Fr equency, Duration) Notes Start Date End Date Status Levothyroxine Sodium Active OxyCONTIN Active oxyCODONE HCl Active Problems Problem Type SNOMED Code ICD Code Onset Dates Problem Status W/U Status Risk Notes Problem Displacement of lumbar intervertebral disc without myelopathy (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
--- OUTSIDE RECORDS SUMMARY | 2025-01-24 19:34 | XMS_ITS | Encounter Summary ---
Author Organization [facility] Address [address] [place] [address] Care Team Providers Care Patient Safety Tech Name Role Phone Sara Viramontes MD Unavailable Violet Salguero RN Unavailable Unavailable Jim Alfredo DO Unavailable [phone] Cesar Grullon MD Primary Care Provider [phone] Romelia Rodriguez LPN Unavailable UnavailPepper Patton NP Unavailable [phone] Encounter Details Date Type Department Care Team (Late st Contact Info) Description 09/27/2023 Procedure [facility] - [address] [address] Social History Tobacco Use Types Packs/Day Years Used Date Smoking Tobacco: Never Smokeless Tobacco: Never Alcohol Use Standard Drinks/Week Comments No 0 (1 standard drink = 0.6 oz pur e alcohol) Housing Stability - SDOH Screener Answer Date Recorded What is your living situation today? Steady hous ing 06/30/2023 Do you need help with Housing/Assisted resources? Not on file 06/30/2023 Patient indicated [...] Date Recorded PHQ-9 Total Score 1 06/30/2023 [place] Depression Scale Score Not o n file [...] phone, visiting friends or family, going to islam or club meetings) No 06/30/2023 Patient indicated no issues from the most recent THRIVE questionnaire Not on file 06/30/2023 Adolescent Depression Answer Date Recor ded PHQ-9 Total Score 1 06/30/2023 [place] Depression Scale Score Not o n file [...] Description 02/05/2025 3:00 PM EDT [facility] [address] [place] [address] 02/21/2025 1:40 PM EDT Office Visit [facility] [address] [place] [address] Cesar Grullon MD 500 [facility], [address] [place] [address] 04/16/2025 3:10 PM EST Office Visit [facility] [address] [place] [address] [place] PA [address] [place] [address] documented as of this encounter Visit Diagnoses Not on filedocumented in this encounter Care Teams Patient Safety Tech Relationship Specialty Start Date End Date Cesar Grullon MD 500 [facility], [address] [place] [address] PCP - General Family Medicine 04/22/23 Sara Viramontes MD [address] [place] [address] Physician Hematology and Oncology 01/28/23 Violet Salguero, JACOB Registered Nurse Medical Oncology 01/28/23 Jim Alfredo DO [address] [place] [address] Surgeon General Surgery 02/03/23 Romelia Rodriguez LPN CCM Nurse 03/12/24 Pepper Lieberman, CHANNEL BUSINESS MANAGER 500 [facility] [address] [place] [address] Nurse Practitioner Family Medicine 12/04/24 documented as of this encounter
--- OUTSIDE RECORDS SUMMARY | 2025-01-24 19:34 | XMS_ITS | Encounter Summary ---
Author Organization [facility] Address [address] [place] [address] Care Team Providers Care Patient Support Representative Name Role Phone Sara Viramontes MD Unavailable Violet Salguero RN Unavailable Unavailable Jim Alfredo DO Unavailable [phone] Cesar Grullon MD Primary Care Provider [phone] Romelia Rodriguez LPN Unavailable UnavailPepper Patton NP Unavailable [phone] Encounter Details Date Type Department Care Team (Latest Contact Info) Description 11/11/2023 Ancillary Orders Social History Tobacco Use Types Packs/Day Years Used Date Smoking Tobacco: Never Smokeless Tobacco: Never Alcohol Use Standard Drinks/Week Comments No 0 (1 standard drink = 0.6 oz pur e alcohol) Housing Stability - SDOH Screener Answer Date Recorded What is your living situation today? Steady hous ing 06/30/2023 Do you need help with Housing/Nursing Home resources? Not on file 06/30/2023 Patient indicated [...] Date Recorded PHQ-9 Total Score 1 06/30/2023 [place] Depression Scale Score Not o n file [...] phone, visiting friends or family, going to gnosticism or club meetings) No 06/30/2023 Patient indicated no issues from the most recent THRIVE questionnaire Not on file 06/30/2023 Adolescent Depression Answer Date Recor ded PHQ-9 Total Score 1 06/30/2023 [place] Depression Scale Score Not o n file [...] Info) Description 02/05/2025 3:00 PM EDT [facility] [address] [place] [phone] 02/21/2025 1:40 PM EDT [facility] [address] [place] [phone] Cesar Grullon MD [address] [place] [address] 04/16/2025 3:10 PM EST Office Visit [facility] [address] [place] [address] [place] PA [address] [place] [address] documented as of this encounter Visit Diagnoses Not on filedocumented in this encounter Care Teams Patient Support Representative Relationship Specialty Start Date End Date Cesar Grullon MD [address] [place] [address], [facility] [address] [place] [address] PCP - General Family Medicine 04/22/23 Sraa Viramontes MD [address] [place] [address] Physician Hematology and Oncology 01/28/23 Violet Salguero, RN Registered Nurse Medical Oncology 01/28/23 Jim Alfredo DO [address] [place] [address] Surgeon General Surgery 02/03/23 Romelia Rodriguez LPN [facility] Nurse 03/12/24 Pepper Lieberman, PERSONAL CARE SERVICE PROVIDER 500 [facility] [address] [place] [address] Nurse Practitioner Family Medicine 12/04/24 documented as of this encounter
--- OUTSIDE RECORDS SUMMARY | 2025-01-24 19:34 | XMS_ITS | Encounter Summary ---
Author Organization [facility] Address [address] [place] [address] Care Team Providers Care Industrial Safety And Health Technician Name Role Phone Lenin Dela Cruz MD Primary Care Provider [phone] Sara Viramontes MD Unavailable Violet Salguero RN Unavailable Unavailable Jim Alfredo DO Unavailable [phone] Cesar Grullon MD Primary Care Provider Cesar Grullon MD Primary Care Provider [phone] Romelia Rodriguez LPN Unavailable UnavailPepper Patton DEVELOPMENT REPRESENTATIVE Unavailable [phone] Encounter Details Date Type Department Care Team (Late st Contact Info) Description 01/28/2023 Procedure Pass [facility] [address] [place] [address] Social History Tobacco Use Types [...] PM EDT Lab [facility] [address] [place] [address] 02/21/2025 1:40 PM EDT Office Visit [facility] [address] [place] [address] Cesar Grullon MD 500 [facility], [address] [address] 04/16/2025 3:10 PM EST Office Visit [facility] [address] [place] [address] [place] [address] [place] [address] documented as of this encounter Visit Diagnoses Not on filedocumented in this encounter Additional Health Concerns Infection Onset Date Last Indicated Resolved Time PUI COVID 05/31/2023 05/31/2023 05/31/2023 12:5 5 PM EST documented as of this encounter Care Teams Industrial Safety And Health Technician Relationship Specialty Start Date End Date Lenin Dela Cruz MD [address] [place] [address] PCP - General Family Medicine 04/12/18 04/06/23 Cesar Grullon MD [address] [place] [address], [facility] [address] [place] [address] PCP - General Family Medicine 04/07/23 04/19/23 Cesar Grullon MD [address] [place] [address], [facility] [address] [place] [address] PCP - General Family Medicine 04/22/23 Sara Viramontes MD [address] [place] [address] Physician Hematology and Oncology 01/28/23 Violet Salguero, RN Registered Nurse Medical Oncology 01/28/23 Jim Alfredo DO [address] [place] [address] Surgeon General Surgery 02/03/23 Romelia Rodriguez LPN [facility] Nurse 03/12/24 Pepper Lieberman, DEVELOPMENT REPRESENTATIVE [address] [facility] [address] [place] [address] Nurse Practitioner Family Medicine 12/04/24 documented as of this encounter
--- OUTSIDE RECORDS SUMMARY | 2025-01-24 19:34 | XMS_ITS | Encounter Summary ---
Author Organization [facility] Address [address] [place] [address] Care Team Providers Care Heavy Rail Train Operator Name Role Phone Lenin Dela Cruz MD Primary Care Provider [phone] Sara Viramontes MD Unavailable Violet Salguero RN Unavailable Unavailable Jim Alfredo DO Unavailable [phone] Cesar Grullon MD Primary Care Provider Cesar Grullon MD Primary Care Provider [phone] Romelia Rodriguez LPN Unavailable UnavailPepper Patton RAIL OPERATOR Unavailable [phone] Encounter Details Date Type Department Care Team (Late st Contact Info) Description 01/05/2023 Procedure Pass [facility] [address] [place] [address] Social History Tobacco Use Types [...] PM EDT Lab [facility] [address] [place] [address] 02/21/2025 1:40 PM EDT Office Visit [facility] [address] [place] [address] Cesar Grullon MD 500 [facility], [address] [address] 04/16/2025 3:10 PM EST Office Visit [facility] [address] [place] [address] [place] [address] [place] [address] documented as of this encounter Visit Diagnoses Not on filedocumented in this encounter Additional Health Concerns Infection Onset Date Last Indicated Resolved Time PUI COVID 05/31/2023 05/31/2023 05/31/2023 12:5 5 PM EST documented as of this encounter Care Teams Heavy Rail Train Operator Relationship Specialty Start Date End Date Lenin Dela Cruz MD [address] [place] [address] PCP - General Family Medicine 04/12/18 04/06/23 Cesar Grullon MD [address] [place] [address], [facility] [address] [place] [address] PCP - General Family Medicine 04/07/23 04/19/23 Cesar Grullon MD [address] [place] [address], [facility] [address] [place] [address] PCP - General Family Medicine 04/22/23 Sara Viramontes MD [address] [place] [address] Physician Hematology and Oncology 01/28/23 Violet Salguero, RN Registered Nurse Medical Oncology 01/28/23 Jim Alfredo DO [address] [place] [address] Surgeon General Surgery 02/03/23 Romelia Rodriguez LPN [facility] Nurse 03/12/24 Pepper Lieberman, RAIL OPERATOR [address] [facility] [address] [place] [address] Nurse Practitioner Family Medicine 12/04/24 documented as of this encounter
--- OUTSIDE RECORDS SUMMARY | 2025-01-24 19:34 | XMS_ITS | Encounter Summary ---
Author Organization [facility] Address [address] [place] [address] Care Team Providers Care Stoker Installation Mechanic Name Role Phone Sara Viramontes MD Unavailable Violet Salguero RN Unavailable Unavailable Jim Alfredo DO Unavailable [phone] Cesar Grullon MD Primary Care Provider Romelia Rodriguez UNDERCOLLAR BASTER Unavailable UnavailPepper Patton SEWER LINE PHOTO INSPECTOR Unavailable [phone] Reason for Referral * Diagnostic Imaging (Routine) - Pending Review Specialty Diagnoses / Procedures Referred By Contkatelyn t Referred To Contact Radiology Diagnoses Hepatocellular carcinoma (HCC) Procedures CT abdomen with and without contrast CT abdomen pelvis with contrast Sara Viramontes MD [address] [place] [address] Phone: tel: fax: Referral ID Status Reason Start Date Expiration Date V isits Requested Visits Authorized [id number] Pending Review 09/27/2023 09/26/2025 1 1 Encounter Details Date Type Department Care Team (Latest Contact Info) Description 10/06/2023 Ancillary Orders [facility] [address] [place] [phone] Sara Viramontes MD [address] [place] [address] Hepatocellular carcinoma (HCC) (Primary Dx) [...] Date Recorded PHQ-9 Total Score 1 06/30/2023 [place] Depression Scale Score Not o n file [...] phone, visiting friends or family, going to adventism or club meetings) No 06/30/2023 Patient indicated no issues from the most recent THRIVE questionnaire Not on file 06/30/2023 Adolescent Depression Answer Date Recor ded PHQ-9 Total Score 1 06/30/2023 [place] Depression Scale Score Not o n file [...] Info) Description 02/05/2025 3:00 PM EDT Lab [facility] [address] [place] [address] 02/21/2025 1:40 PM EDT Office Visit [facility] [address] [place] [address] [place] [address] Cesar Grullon MD 500 [facility], [address] [place] [address] 04/16/2025 3:10 PM EST Office Visit [facility] [address] [place] [address] [place] [address] [place] [address] documented as of this encounter Results * CT abdomen with and without contrast (10/06/2023 4:04 PM EDT) Anatomical Region Laterality Modality Abdomen, Ortho Abdomen Computed Tomography 10/07/2023 10:5 1 AM EDT Impressions 10/10/2023 7:19 PM EDT IMPRESSION: Postsurgical changes of hepatoma resection as detailed above. Abnormal portal vein thrombosis in the right hepatic lobe, most pronounced at the anterior division with equivocal expansile thrombus at the proximal aspect of the right portal vein. Tumor thrombus cannot be excluded. Ill-defined hypoenhancing tissue along the posterior margin of the resection cavity in the right hepatic lobe which could reflect postsurgical change/ granulation tissue however recurrent malignancy cannot be excluded. Prominent manuela hepatis lymph nodes, similar to prior exam. RECOMMENDATION: Follow-up with liver mass protocol MRI for further characterization. RS: [id number] Narrative 10/10/2023 7:[address] ABDOMEN WITHOUT AND WITH CONTRAST INDICATION: Follow-up hepatoma status post resection 03/04/2023 with positive margin; intermittent abdominal pain near incision site TECHNIQUE: Axial images obtained from the lung bases through the distal aorta without and with intravenous contrast in precontrast, arterial, portal venous, and delayed phases. Coronal and sagittal reformats obtained. This exam was performed with the following dose reduction techniques: automated exposure control and adjustment of milliamperage and/or kilovoltage according to patient size. COMPARISON: CT abdomen and pelvis 06/22/2023, 03/13/2023; MRI abdomen 01/08/2023 FINDINGS: Stable surgical changes of resection of hepatoma in hepatic segment V. There is geographic, heterogeneous steatosis in the right hepatic lobe. No arterial enhancing lesion identified. On portal venous phase images, there is markedly heterogeneous enhancement in the right hepatic lobe, most notably in segments VII and VIII, similar to prior exam. There is portal vein thrombosis involving the anterior branch of the right portal vein with focal occlusion at the origin. There is suggestion of expansile thrombus at the proximal right portal vein however no definite enhancing thrombus identified. There is ill-defined hypoenhancing tissue along the posterior margin of the resection cavity (axial images 35-37, sagittal image 189) which could reflect postsurgical change/ granulation tissue however local recurrence cannot be excluded. Peripheral branching hypodensities inferiorly in hepatic segment six are likely secondary to peripheral portal vein thrombus. Gallbladder surgically absent. Mild prominence of the common duct and central intrahepatic ducts, likely postsurgical in etiology. No choledocholithiasis or distal obstructing lesion identified. Splenic parenchymal calcifications are likely related to prior granulomatous disease. Pancreas and adrenal glands are unremarkable. Kidneys enhance symmetrically. Punctate nonobstructing stone in the interpolar region of the right kidney. No acute obstructive uropathy. No urinary tract filling defects in the kidneys or proximal ureters on delayed phase imaging. No small or large bowel wall thickening or obstruction. Moderate retained colonic stool. No free intraperitoneal air. No free fluid in the abdomen. There are prominent manuela hepatis and portacaval lymph nodes, the largest maisha conglomerate measuring 2.2 x 2.1 cm, stable compared with prior exam when measured at a similar level. No abdominal aortic aneurysm. Visualized lungs clear. No acute osseous abnormality. Stable hemangioma in the L1 vertebral body. Multilevel Schmorl's node formation in the lower thoracic and lumbar spine. Stable mild superior endplate compression deformity of T10. Procedure Note Catarino Campbell MD - 10/10/2023 CT ABDOMEN WITHOUT AND WITH CONTRAST INDICATION: Follow-up hepatoma status post resection 03/04/2023 withpositive margin; intermittent abdominal pain near incision site TECHNIQUE: Axial images obtained from the lung bases through the distalaorta without and with intravenous contrast in precontrast, arterial,portal venous, and delayed phases. Coronal and sagittal reformatsobtained. This exam was performed with the following dose reduction techniques: automated exposure control andadjustment of milliamperage and/or kilovoltage according to patientsize. COMPARISON: CT abdomen and pelvis 06/22/2023, 03/13/2023; MRI abdomen01/08/2023 FINDINGS: Stable surgical changes of resection of hepatoma in hepaticsegment V. There is geographic, heterogeneous steatosis in the righthepatic lobe. No arterial enhancing lesion identified. On portal venous phase images, there is markedly heterogeneous enhancementin the right hepatic lobe, most notably in segments VII and VIII, similarto prior exam. There is portal vein thrombosis involving the anteriorbranch of the right portal vein with focal occlusion at the origin. There is suggestion of expansilethrombus at the proximal right portal vein however no definite enhancingthrombus identified. There is ill-defined hypoenhancing tissue along theposterior margin of the resection cavity (axial images 35-37, sagittal image 189) which could reflectpostsurgical change/ granulation tissue however local recurrence cannot beexcluded. Peripheral branching hypodensities inferiorly in hepatic segmentsix are likely secondary to peripheral portal vein thrombus. Gallbladder surgically absent. Mild prominence of the common duct andcentral intrahepatic ducts, likely postsurgical in etiology. Nocholedocholithiasis or distal obstructing lesion identified. Splenic parenchymal calcifications are likely related to priorgranulomatous disease. Pancreas and adrenal glands are unremarkable.Kidneys enhance symmetrically. Punctate nonobstructing stone in theinterpolar region of the right kidney. No acute obstructive uropathy. No urinary tract filling defects in the kidneys orproximal ureters on delayed phase imaging. No small or large bowel wall thickening or obstruction. Moderate retainedcolonic stool. No free intraperitoneal air. No free fluid in the abdomen. There are prominent manuela hepatis andportacaval lymph nodes, the largest maisha conglomerate measuring 2.2 x 2.1cm, stable compared with prior exam when measured at a similar level. Noabdominal aortic aneurysm. Visualized lungs clear. No acute osseous abnormality. Stable hemangioma inthe L1 vertebral body. Multilevel Schmorl's node formation in the lowerthoracic and lumbar spine. Stable mild superior endplate compressiondeformity of T10. IMPRESSION: Postsurgical changes of hepatoma resection as detailedabove. Abnormal portal vein thrombosis in the right hepatic lobe, most pronouncedat the anterior division with equivocal expansile thrombus at the proximalaspect of the right portal vein. Tumor thrombus cannot be excluded. Ill-defined hypoenhancing tissue along the posterior margin of theresection cavity in the right hepatic lobe which could reflectpostsurgical change/ granulation tissue however recurrent malignancycannot be excluded. Prominent manuela hepatis lymph nodes, similar to prior exam. RECOMMENDATION: Follow-up with liver mass protocol MRI for furthercharacterization. RS: [id number] Sara Viramontes MD IMG CT ORDERABLES Final Result documented in this encounter Visit Diagnoses Diagnosis Hepatocellular carcinoma (HCC) Malignant neoplasm of liver, primary Hepatocellular carcinoma (HCC)- Primary Malignant neoplasm of liver, primary documented in this encounter Care Teams Stoker Installation Mechanic Relationship Specialty Start Date End Date Cesar Grullon MD 500 [facility], [facility] [address] [place] [address] PCP - General Family Medicine 04/22/23 Sara Viramontes MD [address] [place] [address] Physician Hematology and Oncology 01/28/23 Violet Salguero, RN Registered Nurse Medical Oncology 01/28/23 Jim Alfredo DO [address] [place] [address] Surgeon General Surgery 02/03/23 Romelia Rodriguez LPN [facility] Nurse 03/12/24 Pepper Lieberman, SEWER LINE PHOTO INSPECTOR [address] [facility] [address] [place] [address] Nurse Practitioner Family Medicine 12/04/24 documented as of this encounter
--- OUTSIDE RECORDS SUMMARY | 2025-01-24 19:34 | XMS_ITS | Encounter Summary ---
Author Organization [facility] Address [address] [place] [address] Care Team Providers Care Steam Drier Operator Name Role Phone Lenin Dela Cruz MD Primary Care Provider [phone] Sara Viramontes MD Unavailable Violet Salguero RN Unavailable Unavailable Jim Alfredo DO Unavailable [phone] Cesar Grullon MD Primary Care Provider [phone] Cesar Grullon MD Primary Care Provider [phone] Romelia Rodriguez LPN Unavailable UnavailPepper Patton GAS OR WATER METER INSTALLER Unavailable [phone] Encounter Details Date Type Department Care Team (Late st Contact Info) Description 01/12/2023 Pharmacy Visit [facility] [address] [place] [address] Social History Tobacco Use Types [...] PM EDT Lab [facility] [address] [place] [address] 02/21/2025 1:40 PM EDT Office Visit [facility] [address] [place] [address] Cesar Grullon MD 500 [facility], [address] [address] 04/16/2025 3:10 PM EST Office Visit [facility] [address] [place] [address] [place] [address] [place] [address] documented as of this encounter Visit Diagnoses Not on filedocumented in this encounter Additional Health Concerns Infection Onset Date Last Indicated Resolved Time PUI COVID 05/31/2023 05/31/2023 05/31/2023 12:5 5 PM EST documented as of this encounter Care Teams Steam Drier Operator Relationship Specialty Start Date End Date Lenin Dela Cruz MD [address] [place] [address] PCP - General Family Medicine 04/12/18 04/06/23 Cesar Grullon MD [address] [facility], [facility] [address] [place] [address] PCP - General Family Medicine 04/07/23 04/19/23 Cesar Grullon MD 500 [facility], [facility] [address] [place] [address] PCP - General Family Medicine 04/22/23 Sara Viramontes MD [address] [place] [address] Physician Hematology and Oncology 01/28/23 Violet Salguero, RN Registered Nurse Medical Oncology 01/28/23 Jim Alfredo DO [address] [place], [place] [id number] Surgeon General Surgery 02/03/23 Romelia Rodriguez LPN [facility] Nurse 03/12/24 Pepper Lieberman, GAS OR WATER METER INSTALLER [address] [facility] [address] [place] [address] Nurse Practitioner Family Medicine 12/04/24 documented as of this encounter
--- OUTSIDE RECORDS SUMMARY | 2025-01-24 19:34 | XMS_ITS | Encounter Summary ---
Author Organization [facility] Address [address] [place] [address] Care Team Providers Care Group Director Experience Name Role Phone Lenin Dela Cruz MD Primary Care Provider [phone] Sara Viramontes MD Unavailable Violet Salguero RN Unavailable Unavailable Jim Alfredo DO Unavailable [phone] Cesar Grullon MD Primary Care Provider Cesar Grullon MD Primary Care Provider [phone] Romelia Rodriguez LPN Unavailable UnavailPepper Patton TECHNICAL ANALYST Unavailable [phone] Reason for Referral * Surgical (Routine/First Available) - Closed Specialty Diagnoses / Procedures Referred By Contkatelyn t Referred To Contact Orthopedic Surgery Diagnoses Pelvic pain Lenin Dela Cruz MD 5 [facility],[place], [place] Phone: tel: fax: Justen Galaviz MD [address] [place] [address] Phone: tel: fax: Referral ID Status Reason Start Date Expiration Date Visits Re quested Visits Authorized [id number] Closed 08/16/2022 08/16/2023 1 1 Encounter Details Date Type Department Care Team (Late st Contact Info) Description 08/16/2022 Orders Only [facility] [address] [place] [address] Lenin Dela Cruz MD [address] [place] [address] Pelvic pain Social History Tobacco Use Types Packs/Day Years [...] Info) Description 02/05/2025 3:00 PM EDT Lab [facility] [address] [place] [address] 02/21/2025 1:40 PM EDT Office Visit [facility] [address] [place] [address] Cesar Grullon MD 500 [facility], [address] [place] [address] 04/16/2025 3:10 PM EST Office Visit [facility] [address] [place] [address] [place] [address] [place] [address] Scheduled Referrals Name Type Priority Associated Diagnoses Order Schedule Outpatient referral to Orthopedic Surgery Outpatient Referral First Available/Routin e Pelvic pain Ordered: 08/16/2022 documented as of this encounter Visit Diagnoses Diagnosis Pelvic pain documented in this encounter Additional Health Concerns Infection Onset Date Last Indicated Resolved Time PUI COVID 05/31/2023 05/31/2023 05/31/2023 12:5 5 PM EST documented as of this encounter Care Teams Group Director Experience Relationship Specialty Start Date End Date Lenin Dela Cruz MD [address] [place] [address],[place], [place] PCP - General Family Medicine 04/12/18 04/06/23 Cesar Grullon MD 500 [facility], [address] [address] PCP - General Family Medicine 04/07/23 04/19/23 Cesar Grullon MD 500 [facility], [address] [address] PCP - General Family Medicine 04/22/23 Sara Viramontes MD [address] [place] [address] Physician Hematology and Oncology 01/28/23 Violet Salguero, JACOB Registered Nurse Medical Oncology 01/28/23 Jim Alfredo DO [address] [place] [address] Surgeon General Surgery 02/03/23 Romelia Rodriguez LPN [facility] Nurse 03/12/24 Pepper Lieberman, TECHNICAL ANALYST [address] [address] Nurse Practitioner Family Medicine 12/04/24 documented as of this encounter
--- OUTSIDE RECORDS SUMMARY | 2025-01-24 19:34 | XMS_ITS | Encounter Summary ---
Author Organization [facility] Address [address] [place] [address] Care Team Providers Care Hydroelectric Plant Mechanical Engineer Name Role Phone Lenin Dela Cruz MD Primary Care Provider [phone] Sara Viramontes MD Unavailable Violet Salguero RN Unavailable Unavailable Jim Alfredo DO Unavailable [phone] Cesar Grullon MD Primary Care Provider Cesar Grullon MD Primary Care Provider [phone] Romelia Rodriguez LPN Unavailable UnavailPepper Patton STATION OPERATOR Unavailable [phone] Encounter Details Date Type Department Care Team (Late st Contact Info) Description 08/12/2022 Procedure Pass [facility] [address] [place] [address] Social History Tobacco Use Types [...] PM EDT Lab [facility] [address] [place] [address] 02/21/2025 1:40 PM EDT Office Visit [facility] [address] [place] [address] Cesar Grullon MD 500 [facility], [address] [address] 04/16/2025 3:10 PM EST Office Visit [facility] [address] [place] [address] [place] [address] [place] [address] documented as of this encounter Visit Diagnoses Not on filedocumented in this encounter Additional Health Concerns Infection Onset Date Last Indicated Resolved Time PUI COVID 05/31/2023 05/31/2023 05/31/2023 12:5 5 PM EST documented as of this encounter Care Teams Hydroelectric Plant Mechanical Engineer Relationship Specialty Start Date End Date Lenin Dela Cruz MD [address] [place] [address] PCP - General Family Medicine 04/12/18 04/06/23 Cesar Grullon MD [address] [place] [address], [facility] [address] [place] [address] PCP - General Family Medicine 04/07/23 04/19/23 Cesar Grullon MD [address] [place] [address], [facility] [address] [place] [address] PCP - General Family Medicine 04/22/23 Sara Viramontes MD [address] [place] [address] Physician Hematology and Oncology 01/28/23 Violet Salguero, RN Registered Nurse Medical Oncology 01/28/23 Jim Alfredo DO [address] [place] [address] Surgeon General Surgery 02/03/23 Romelia Rodriguez LPN [facility] Nurse 03/12/24 Pepper Lieberman, STATION OPERATOR [address] [facility] [address] [place] [address] Nurse Practitioner Family Medicine 12/04/24 documented as of this encounter
--- OUTSIDE RECORDS SUMMARY | 2025-01-24 19:34 | XMS_ITS | Encounter Summary ---
Author Organization [facility] Address [address] [place] [address] Care Team Providers Care Conditioning Room Worker Name Role Phone Lenin Dela Cruz MD Primary Care Provider [phone] Sara Viramontes MD Unavailable Violet Salguero RN Unavailable Unavailable Jim Alfreod DO Unavailable [phone] Cesar Grullon MD Primary Care Provider Cesar Grullon MD Primary Care Provider [phone] Romelia Rodriguez LPN Unavailable UnavailPepper Patton [employer] SUPERVISOR Unavailable [phone] Encounter Details Date Type Department Care Team (Late st Contact Info) Description 01/10/2023 Procedure Pass [facility] [address] [place] [address] Social History Tobacco Use Types [...] PM EDT Lab [facility] [address] [place] [address] 02/21/2025 1:40 PM EDT Office Visit [facility] [address] [place] [address] Cesar Grullon MD [address] [facility], [address] [address] 04/16/2025 3:10 PM EST Office Visit [facility] [address] [place] [address] [place] [address] [place] [id number] documented as of this encounter Visit Diagnoses Not on filedocumented in this encounter Additional Health Concerns Infection Onset Date Last Indicated Resolved Time PUI COVID 05/31/2023 05/31/2023 05/31/2023 12:5 5 PM EST documented as of this encounter Care Teams Conditioning Room Worker Relationship Specialty Start Date End Date Lenin Dela Cruz MD [address] [place] [address] PCP - General Family Medicine 04/12/18 04/06/23 Cesar Grullon MD [address] [place] [address], [facility] [address] [place] [address] PCP - General Family Medicine 04/07/23 04/19/23 Cesar Grullon MD [address] [place] [address], [facility] [address] [place] [address] PCP - General Family Medicine 04/22/23 Sara Viramontes MD [address] [place] [id number] Physician Hematology and Oncology 01/28/23 Violet Salguero, RN Registered Nurse Medical Oncology 01/28/23 Jim Alfredo DO [address] [place] [address] Surgeon General Surgery 02/03/23 Romelia Rodriguez LPN [facility] Nurse 03/12/24 Pepper Lieberman, [employer] [address] [facility] [address] [place] [address] Nurse Practitioner Family Medicine 12/04/24 documented as of this encounter
[2025-01-24 19:56] VITALS: BP 140/86; PULSE 54; RESP 12; TEMP 36.9; O2SAT 97
[2025-01-24 19:59] VITALS: BMI 23.1
[2025-01-24 20:33] VITALS: BP 140/86
--- NOTE | 2025-01-24 21:39 | PC.NURSE ---
Admission Note Mauricio Mix, a 69-year-old man, was presented to [facility] ED via ambulance from his apartment with chief complaint of suicidal ideation with plan to overdose triggered by his recent diagnosis of liver cancer. The patient has a medical and psychiatric history of? Hypothyroidism, Hepatitis C, Liver Cancer, Anxiety and Depression.? Mauricio arrived on our unit with EMS on stretcher at 1940 on 01/24/25, signed CV/approved by the provider, with an admitting diagnosis of? Adjustment Disorder. The patient requested a 3-day notice paper/offered/ signed/filed. Mauricio is full-code. He is alert and oriented, times four. Behaviour pleasant but anxious. Thought content logical/clear, thought process clear. Mood depressed. Affect flat. Endorses anxiety 03/08 but he denied depression. Hydroxyzine 25 mg and Clonidine 0.05 mg administered at 2032 for anxiety with good effect. Patients take meds whole with water. Denied SI/HI/AVH. Skin assessed no issues observed.? Med reconciliation was completed based on a pharmacy claim history and medical record. Provider approved the meds and MAR active.? He ambulates independently and is independent with ADL care. Labs shows elevate ALT and AST. Utox positive for THC and he reported smoking daily.? EKG abnormal due to sinus bradycardia. Mauricio signed his treatment plan, safety tool, and release paper. Marline searched. Mauricio is on for 5-minutes for a safety check.
[2025-01-25] MEDS: Milk of Magnesia 30 ML ORAL.SUSP PO (04:02)
[2025-01-25 05:28] VITALS: BP 114/67; PULSE 59; RESP 13; TEMP 36.7; O2SAT 97
[2025-01-25 05:31] VITALS: BP 114/67
[2025-01-25 08:00] VITALS: BP 117/60; PULSE 57; RESP 15; TEMP 36.5
[2025-01-25 08:14] LABS: Hemoglobin A1C 151.8245 umol/L; Total Hemoglobin (HGBA1C) 3952.5722 umol/L
[2025-01-25 08:15] LABS: Alanine Aminotransferase 90 U/L (0-40); Albumin Level 4.4 g/dL (3.5-5.0); Alkaline Phosphatase 90 U/L (39-117); Anion Gap 13 (12-20); Aspartate Amino Transferase 85 U/L (5-37); Blood Urea Nitrogen 14 mg/dL (9-16); Calcium 9.3 mg/dL (8.4-10.2); Carbon Dioxide 26 mmol/L (22-29); Chloride 101 mmol/L (96-108); Cholesterol 194 mg/dL (<200); Creatinine Clr Calc Pharmacy 66.9; Estimated Glomerular Filt Rate > 60; HDL Cholesterol 82 mg/dL (>40); Potassium 4.7 mmol/L (3.3-5.1); Sodium 135 mmol/L (135-145); Total Protein 6.8 g/dL (6.5-8.0); Triglycerides 50 mg/dL (<150)
[2025-01-25 08:29] LABS: Free T4 (Free Thyroxine) 0.90 ng/dL (0.71-1.85); Thyroid Stimulating Hormone 1.07 uIU/mL (0.32-4.0)
--- NOTE | 2025-01-25 10:46 | HO.PSYADMNOT ---
HPI Date of Service: 01/25/25 Chief Complaint: Adjustment d/o Sources of Information: patient interviewed, chart reviewed and crisis/core team assessment reviewed HPI Subjective Notes: Sheikh Warning and Conditional Voluntary Narrative: Mr. Mix is a 69 year-old male with hx of MDD who self presented at recommendation of his therapist to [facility] [place] due to suicidal ideaiton with plan to OD on combination of opioid medications and benzodiazepines in setting of psychosocial stressors including losing housing in next few weeks and not having contact with two of his 3 children. Pertinent labs completed in ED include CBC with macrocytic anemia (stable H&H 13.7/39.4), low Plts 134. CMP without electrolyte abnormalities, BUN 8, Cr 1.00, elevated AST 80, ALT 94, Alkaline phos wnl, bilirun wnl. Utox positive for cannabinoids. BAL negative. Pt has hx of cirrhosis and hepatocarcinoma. On the unit, pt presents as calm and cooperative. He reports for the past 3 weeks he has been having increase suicidal ideation with plan to OD on opioids and benzodiazepines. He reports multiple aspects in his life contributed to this including about to lose housing, worsening medical conditions/health, increase recreational use of Kramton and lack of communication with 2 of his 3 children. He reports recently started going to therapy weekly. He reports he had reported to his therapist suicidal ideation and had promised her to let her know if he had an active plan to hurt himself. He reports he felt overwhemed and realized he is not coping well with stressors and disclosed to therapist active suicidality. Pt endorses raising thoughts. He reports he has suffered from depression for most of his life. He reports he has taken more than 10 antidepressants. He reports none of them have been effective. He reports he is not interested in antidepressants but will to try a medication for raising thoughts. He asks about olanzapine- however discussed that olanzapine is heavily metabolized by liver. Past Psychiatric History: Inpatient: 2019 ([place] [facility]) for depression. Pt reports he has had about 8 admissions to dual dx programs. OP[facility]- sees therapist Tessy (can't remember her last name). No psych prescriber. Past medication trials: prozac, wellbutrin, lorazepam. reports several antidepressant but can't remember names. Hx of suicide attempts: OD at age 32 and then at age 33. Medical Evaluation Reviewed: Yes [facility] Family History: Father- alcohol use disorder Mother- Bipolar Disorder with multiple psychiatric admissions Social History: Pt is . 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 He has 3 adult children with whom he only talks with middle one. He rents room in a house. Currently not working. Substance History: Hx of alcohol use, which he reports has not used for the past 2 years. Daily use of cannabinoids Daily use of kramtom 4 times a day. He used to be on suboxone for kramton but did not find it helpful. He denies cocaine use. No other opioid use. Trauma History: none Diagnostics Vital Signs (24Hr): Vital Signs - 24 hr 01/24/25 19:56 01/24/25 20:33 01/25/25 05:28 Temperature 98.5 F 98.1 F Pulse Rate 54 59 Respiratory Rate 12 13 Blood Pressure 140/86 H 140/86 H 114/67 Pulse Oximetry 97 97 Oxygen Delivery Method Room Air Room Air 01/25/25 05:31 Temperature Pulse Rate Respiratory Rate Blood Pressure 114/67 Pulse Oximetry Oxygen Delivery Method BMI result Body Mass Index 23.1 Labs 01/25/25 12:10 01/25/25 07:35 Labs: Laboratory Results - last 48 hr 01/25/25 07:35 Sodium 135 Potassium 4.7 Chloride 101 Carbon Dioxide 26 Anion Gap 13 BUN 14 Creatinine 0.94 Estim Creat Clear Calc 66.9 Estimated GFR > 60 Random Glucose 109 Estimat Average Glucose 117 Hemoglobin A1c % 5.7 Calcium 9.3 Total Bilirubin 0.6 AST 85 H ALT 90 H Alkaline Phosphatase 90 Total Protein 6.8 Albumin 4.4 Triglycerides 50 Cholesterol 194 LDL Cholesterol, Calc 102 H HDL Cholesterol 82 TSH 1.07 Free T4 0.90 Meds/Allergies Meds Home Medications ?Medication ?Instructions ?Recorded ?Confirmed ?Type gabapentin 300 mg capsule 300 mg PO DAILY 01/24/25 01/24/25 History levothyroxine 50 mcg tablet 50 mcg PO DAILY 01/24/25 01/24/25 History valacyclovir 500 mg tablet 500 mg PO BID 01/24/25 01/24/25 History Allergies Allergies Allergy/AdvReac Type Severity Reaction Status Date / Time No Known Allergies Allergy Verified 01/24/25 19:50 Mental Status Exam Mental Status Exam Narrative: Appearance: wearing hospital gown, fair hygiene, in NAD Behavior: cooperative friendly Psychomotor: no agitation or retardation noted Speech: clear, normal rate/rhythm/volume, spontaneous TP: linear TC: feeling better but still worried about his future Mood: anxious Affect: calmer than reported anxious mood, tearful when talking about suicidal thoughts and plan. SI: currently denies any plan or intent to harm himself HI: none VH/AH: none Delusions: none Insight/judgment: poor x 2. Memory/cog: alert, oriented x 3. grossly intact but pending MOCA/ACL. Assessment & Plan Assessment & Plan (1) MDD (major depressive disorder), recurrent episode, moderate: Status: Acute Code(s): F33.1 - Major depressive disorder, recurrent, moderate Plan Mr. Mix is a 69 year-old male with hx of MDD who self presented to [facility] ED reporting increased depression, suicidal ideation with plan to OD on opioids and benzodiazepines. Utox positive for cannabinoids. Pt reports stressors including about to lose housing, worsening medical condition, strained relationship with 2 his adult children. he currently denies any plan or intent to harm himself. he reports he has tried multiple antidepressant and not interested in trying one. He does ask for medications for raising thoughts which mostly he reports are rumination about above stressors. He asked about olanzapine, which this staff writer explained it is heavily metabolized by liver but can try low dose of risperidone although with understanding that this medication will not treat unipolar depression. PLAN 1. Admit to S1, CV- 3 day notice, 15 minutes checks 2. start risperidone 0.25mg po TID for intrusive thoughts/anxiety. 3. Obtain collateral information 4. Aftercare planning. Patient educated on: diagnosis and medication risk/benefits Reason for continued inpatient stay Substantial Risk for: harm to self and inability to function Statement Statement: I have reviewed the history and physical and performed a pertinent examination on my patient. No changes have occurred unless specified. If the History and Physical was not performed prior to admission, the Hospitalist's service will be consulted for completing the admission physical. Time Spent With Patient Time: Total time managing care of this patient today ____ minutes.
[2025-01-25 12:27] LABS: MANUAL DIFF FLAG NO
[2025-01-25 12:34] LABS: Hematocrit 40.3 % (42.0-52.0); Hemoglobin 14.2 g/dl (14.0-18.0); Imm Gran Abs Auto 0.02 X10*3/uL (0.00-0.03); Imm Gran Pct Auto 0.3 % (0.0-0.4); Lymphocytes Absolute Auto 1.1 X10*3/uL (1.2-4.9); Mean Corpuscular HGB Conc 35.2 g/dl (31.0-36.0); Mean Corpuscular Hemoglobin 35.1 pg (27.0-33.0); Mean Corpuscular Volume 99.5 fL (80.0-98.0); NRBC Abs Auto 0.000 X10*3/uL (0.0-0.012); NRBC Pct Auto 0.0 /100WBC (0.0-0.2); Platelet Count 140 X10*3/uL (160-400); Red Blood Count 4.05 X10*6/uL (4.60-5.80); White Blood Count 7.0 X10*3/uL (4.8-10.8)
[2025-01-25 12:39] LABS: Ammonia 15 umol/L (13-55)
[2025-01-25 13:12] LABS: Vitamin B12 1133 pg/mL (200-900)
[2025-01-25 20:00] VITALS: BP 124/71; PULSE 58; RESP 18; TEMP 36.2; O2SAT 98
--- NOTE | 2025-01-25 23:06 | HO.PM.IMCN ---
History of Present Illness Data of Consult Service Date: 01/25/25 Requesting physician: Chris Velázquez Primary Care Provider: Cesar Grullon MD [facility] Reason for consult: medical H&P Patient is a 69-year-old male with a past medical history significant for hypothyroid, cirrhosis, hepatocarcinoma and pulmonary mass, admitted to [facility] for SI. The patient reports that he is no longer feeling suicidal, he is very appreciative that his psychiatrist helped him get the mental health treatment that he needed. His only medical concern currently he is constipation. He states he took milk of magnesia yesterday which was helpful but he is not due for another dose he had in his still feeling bloated and uncomfortable. He would like to try senna. He reports multiple orthopedic injuries in the past. He also has a history of tobacco use, light smoker. Previously drank alcohol heavily but has been sober. He also uses marijuana and kratom. Currently he denies any chest pain, shortness of breath, nausea, vomiting, abdominal pain or lower extremity edema Review of Systems Review of Systems: Yes all other systems are reviewed and are negative [facility] Medical History (Updated 01/25/25 @ 23:10 by Michelle Saravia PA-C) Hypothyroid Hepatic carcinoma Cirrhosis Functional capacity: independent ambulation Social History Household Members: None Housing: Apartment Do you presently have visiting nurse or other home services: Yes Patient Tobacco Use Status: Former Tobacco user Tobacco use type: Cigarette Smoked in Last 30 Days: No Patient Interested in Nicotine Replacement: No Patient Given Instructions on How to Stop Smoking: No Second Hand Smoke Exposure: No Currently Displaying Signs/Symptoms of Drug Intoxication Withdrawal: No Have you been hit, kicked, punched, or otherwise hurt by someone within the past year? If so, by whom?: No Do you feel safe in your current relationship?: No Current Relationship Is there a partner from a previous relationship who is making you feel unsafe now?: No Are you made to feel afraid or neglected: No Advance Directives: No Advance Directives Information Provided: Yes Do you have thoughts of harming others: None Do you have a plan to hurt others: No Plan Recently lost weight without trying: No Nutrition Risks: No Nutritional Risk Poor oral hygiene: No service: No Sexual orientation: Straight/Heterosexual Narrative: Light tobacco use, previous alcohol. Uses marijuana and kratom Meds Allergies Allergy/AdvReac Type Severity Reaction Status Date / Time No Known Allergies Allergy Verified 01/24/25 19:50 Active Medications: Current Medications Al Hydroxide/Mg Hydroxide (Magnesium Hydrox/Alum Hydrox 30 Ml Oral.Susp) 30 ml PO Q6H PRN PRN Reason: Heartburn/Nausea Clonidine HCl (Clonidine Hcl 0.1 Mg Tablet) 0.05 mg PO BID PRN; Protocol PRN Reason: Severe anxiety Last Admin: 01/25/25 05:31 Dose: 0.05 mg Cyanocobalamin (Cyanocobalamin (Vitamin B-12) 100 Mcg Tablet) 100 mcg PO DAILY [facility] Gabapentin (Gabapentin 300 Mg Capsule) 300 mg PO BEDTIME [facility] Last Admin: 01/25/25 20:50 Dose: 300 mg Levothyroxine Sodium (Levothyroxine Sodium 50 Mcg Tablet) 50 mcg PO DAILY@0600 [facility] Magnesium Hydroxide (Milk Of Magnesia 30 Ml Oral.Susp) 30 ml PO DAILY PRN PRN Reason: Constipation Last Admin: 01/25/25 04:02 Dose: 30 ml Magnesium Oxide (Magnesium Oxide 400 Mg Tablet) 400 mg PO BEDTIME [facility] Last Admin: 01/25/25 20:50 Dose: 400 mg Melatonin (Melatonin 3 Mg Tablet) 3 mg PO BEDTIME [facility] Last Admin: 01/25/25 20:50 Dose: 3 mg Nicotine (Nicotine 21 Mg Patch.Td24) 21 mg TRANSDERMA DAILY PRN PRN Reason: nicotine craving Nicotine Polacrilex (Nicotine Polacrilex 2 Mg Gum) 2 mg BUCCAL Q2H PRN PRN Reason: Nicotine Cravings Last Admin: 01/25/25 20:56 Dose: 2 mg Risperidone (Risperidone 0.25 Mg Tablet) 0.25 mg PO TID [facility] Last Admin: 01/25/25 20:50 Dose: 0.25 mg Trazodone HCl (Trazodone Hcl 50 Mg Tablet) 50 mg PO BEDTIME MRX1 PRN PRN Reason: Insomnia Last Admin: 01/24/25 22:52 Dose: 50 mg Valacyclovir HCl (Valacyclovir Hcl 500 Mg Tablet) 500 mg PO BID [facility] Last Admin: 01/25/25 20:50 Dose: 500 mg Home Medications ?Medication ?Instructions ?Recorded ?Confirmed ?Last Taken ?Type gabapentin 300 mg capsule 300 mg PO DAILY 01/24/25 01/24/25 Unknown History levothyroxine 50 mcg tablet 50 mcg PO DAILY 01/24/25 01/24/25 Unknown History valacyclovir 500 mg tablet 500 mg PO BID 01/24/25 01/24/25 Unknown History Physical Exam Vital Signs and Narrative: Vital Signs: Last Vital Signs Temp 97.7 F 01/25/25 08:00 Pulse 57 01/25/25 08:00 Resp 15 01/25/25 08:00 BP 117/60 01/25/25 08:00 Pulse Ox 97 01/25/25 05:28 O2 Del Method Room Air 01/25/25 05:28 BMI result Body Mass Index 23.1 General: AOx3, no acute distress Resp: CTA bilaterally CVS: S1, S2, RRR GI: +BS, NT, no distention Skin: Warm, dry Neuro: Cranial nerves II-XII grossly intact bilaterally. Motor grossly intact bilaterally. normal strength bilateral upper and lower extremities. Extremities: No pitting edema Psych: Appropriate affect Results Labs 01/25/25 12:10 01/25/25 07:35 Labs: Laboratory Results - last 24 hr 01/25/25 01/25/25 07:35 12:10 MCV 99.5 H MCH 35.1 H MCHC 35.2 RDW 13.2 Plt Count 140 L MPV 9.5 Immature Gran % (Auto) 0.3 Neut % (Auto) 73.6 H Lymph % (Auto) 16.0 L [place] % (Auto) 9.7 Eos % (Auto) 0.3 Baso % (Auto) 0.1 Lymph # (Auto) 1.1 L [place] # (Auto) 0.7 Eos # (Auto) 0.0 Baso # (Auto) 0.0 Abs Immat Gran (auto) 0.02 Absolute Neuts (auto) 5.2 Absolute Nucleated RBC 0.000 Nucleated RBC % (auto) 0.0 Anion Gap 13 Estim Creat Clear Calc 66.9 Estimated GFR > 60 Random Glucose 109 Estimat Average Glucose 117 Hemoglobin A1c % 5.7 Calcium 9.3 Total Bilirubin 0.6 AST 85 H ALT 90 H Alkaline Phosphatase 90 Ammonia 15 Total Protein 6.8 Albumin 4.4 Triglycerides 50 Cholesterol 194 LDL Cholesterol, Calc 102 H HDL Cholesterol 82 Vitamin B12 1133 H 25-OH Vitamin D Total 40.2 TSH 1.07 Free T4 0.90 Assessment and Plan (1) Medical clearance for psychiatric admission: Status: Acute (2) Constipation: Status: Acute Plan Patient is a 69-year-old male with a past medical history significant for hypothyroid, cirrhosis, hepatocarcinoma and pulmonary mass, admitted to [facility] psych for SI. Hospitalist consultation placed for medical H and P. SI/mood - plan per psych Constipation - continue milk of magnesia add senna Hypothyroid - TSH normal - continue levothyroxine Cirrhosis/hepatic carcinoma/pulmonary mass - AST 85, ALT 90, alk-phos normal - continue outpatient follow-up with GI and Oncology Thank you for allowing me to participate in the pt's care. Signing off. Please contact the medical team if any questions or concerns.
[2025-01-26 01:19] VITALS: RESP 20
[2025-01-26] MEDS: Milk of Magnesia 30 ML ORAL.SUSP PO ×2 (03:03→14:15)
[2025-01-26 08:00] VITALS: BP 139/71; PULSE 58; RESP 18; TEMP 36.7; O2SAT 99
--- NOTE | 2025-01-26 09:11 | P.PNPSI_ITS ---
Subjective Subjective Date of Service: 01/26/25 Reason For Visit: Adjustment d/o Interim History: Anxious. Perseverating on the situation on the unit and feeling anxious because he is unabkle to enact his usual routines and taking supplements he does at home. Denies active SI. Review of Systems Review of Systems Pt denies chest pain, any source of pain. he reports intermittent periods of constipation but reports last BM was today. No changes in vision. No abdominal pain. No vomiting nor nausea. Yes all other systems are reviewed and are negative Mental Status Exam Mental Status Exam Narrative: Appearance: wearing hospital gown, fair hygiene, in NAD Behavior: cooperative friendly Psychomotor: no agitation or retardation noted Speech: clear, normal rate/rhythm/volume, spontaneous TP: linear TC: feeling better but still worried about his future Mood: anxious Affect: calmer than reported anxious mood, tearful when talking about suicidal thoughts and plan. SI: currently denies any plan or intent to harm himself HI: none VH/AH: none Delusions: none Insight/judgment: poor x 2. Memory/cog: alert, oriented x 3. grossly intact but pending MOCA/ACL. Diagnostics Vital Signs (24Hr): Vital Signs - 24 hr 01/25/25 20:00 01/26/25 01:19 01/26/25 08:00 Temperature 97.1 F 98.1 F Pulse Rate 58 58 Respiratory Rate 18 20 18 Blood Pressure 124/71 139/71 Pulse Oximetry 98 99 Oxygen Delivery Method Room Air Room Air BMI result Body Mass Index 23.1 Labs 01/25/25 12:10 01/25/25 07:35 Labs: Laboratory Results - last 48 hr 01/25/25 01/25/25 07:35 12:10 WBC 7.0 RBC 4.05 L Hgb 14.2 Hct 40.3 L MCV 99.5 H MCH 35.1 H MCHC 35.2 RDW 13.2 Plt Count 140 L MPV 9.5 Immature Gran % (Auto) 0.3 Neut % (Auto) 73.6 H Lymph % (Auto) 16.0 L [place] % (Auto) 9.7 Eos % (Auto) 0.3 Baso % (Auto) 0.1 Lymph # (Auto) 1.1 L [place] # (Auto) 0.7 Eos # (Auto) 0.0 Baso # (Auto) 0.0 Abs Immat Gran (auto) 0.02 Absolute Neuts (auto) 5.2 Absolute Nucleated RBC 0.000 Nucleated RBC % (auto) 0.0 Sodium 135 Potassium 4.7 Chloride 101 Carbon Dioxide 26 Anion Gap 13 BUN 14 Creatinine 0.94 Estim Creat Clear Calc 66.9 Estimated GFR > 60 Random Glucose 109 Estimat Average Glucose 117 Hemoglobin A1c % 5.7 Calcium 9.3 Total Bilirubin 0.6 AST 85 H ALT 90 H Alkaline Phosphatase 90 Ammonia 15 Total Protein 6.8 Albumin 4.4 Triglycerides 50 Cholesterol 194 LDL Cholesterol, Calc 102 H HDL Cholesterol 82 Vitamin B12 1133 H 25-OH Vitamin D Total 40.2 TSH 1.07 Free T4 0.90 Medications Medications Current Medications Al Hydroxide/Mg Hydroxide (Magnesium Hydrox/Alum Hydrox 30 Ml Oral.Susp) 30 ml PO Q6H PRN PRN Reason: Heartburn/Nausea Clonidine HCl (Clonidine Hcl 0.1 Mg Tablet) 0.05 mg PO BID PRN; Protocol PRN Reason: Severe anxiety Last Admin: 01/25/25 05:31 Dose: 0.05 mg Cyanocobalamin (Cyanocobalamin (Vitamin B-12) 100 Mcg Tablet) 100 mcg PO DAILY [facility] Last Admin: 01/26/25 09:06 Dose: Not Given Gabapentin (Gabapentin 300 Mg Capsule) 300 mg PO BEDTIME [facility] Last Admin: 01/25/25 20:50 Dose: 300 mg Levothyroxine Sodium (Levothyroxine Sodium 50 Mcg Tablet) 50 mcg PO DAILY@0600 [facility] Last Admin: 01/26/25 06:06 Dose: 50 mcg Magnesium Hydroxide (Milk Of Magnesia 30 Ml Oral.Susp) 30 ml PO DAILY PRN PRN Reason: Constipation Last Admin: 01/26/25 03:03 Dose: 30 ml Magnesium Oxide (Magnesium Oxide 400 Mg Tablet) 400 mg PO BEDTIME [facility] Last Admin: 01/25/25 20:50 Dose: 400 mg Melatonin (Melatonin 3 Mg Tablet) 3 mg PO BEDTIME [facility] Last Admin: 01/25/25 20:50 Dose: 3 mg Nicotine (Nicotine 21 Mg Patch.Td24) 21 mg TRANSDERMA DAILY PRN PRN Reason: nicotine craving Nicotine Polacrilex (Nicotine Polacrilex 2 Mg Gum) 2 mg BUCCAL Q2H PRN PRN Reason: Nicotine Cravings Last Admin: 01/25/25 20:56 Dose: 2 mg Risperidone (Risperidone 0.25 Mg Tablet) 0.25 mg PO TID [facility] Last Admin: 01/26/25 09:06 Dose: Not Given Senna (Sennosides 8.6 Mg Tablet) 8.6 mg PO BEDTIME PRN PRN Reason: Constipation Trazodone HCl (Trazodone Hcl 50 Mg Tablet) 50 mg PO BEDTIME MRX1 PRN PRN Reason: Insomnia Last Admin: 01/26/25 00:19 Dose: 50 mg Valacyclovir HCl (Valacyclovir Hcl 500 Mg Tablet) 500 mg PO BID [facility] Last Admin: 01/26/25 09:07 Dose: 500 mg Allergies Allergies Allergy/AdvReac Type Severity Reaction Status Date / Time No Known Allergies Allergy Verified 01/24/25 19:50 Assessment & Plan Assessment & Plan (1) Medical clearance for psychiatric admission: Status: Acute Code(s): Z00.8 - Encounter for other general examination (2) Constipation: Status: Acute Code(s): K59.00 - Constipation, unspecified Plan Patient is a 69-year-old male with a past medical history significant for hypothyroid, cirrhosis, hepatocarcinoma and pulmonary mass, admitted to [facility] psych for SI. Hospitalist consultation placed for medical H and P. SI/mood - plan per psych Constipation - continue milk of magnesia add senna Hypothyroid - TSH normal - continue levothyroxine Cirrhosis/hepatic carcinoma/pulmonary mass - AST 85, ALT 90, alk-phos normal - continue outpatient follow-up with GI and Oncology Thank you for allowing me to participate in the pt's care. Signing off. Please contact the medical team if any questions or concerns. 01/26: continue current management and treatment plan. Reason for continued inpatient stay Substantial Risk for: inability to function, rapid decompensation and med/psych decompensation Time Spent With Patient Time: Total time managing care of this patient today ____ minutes.
[2025-01-26 11:26] VITALS: BMI 23.6
[2025-01-26 14:14] VITALS: BP 150/82
[2025-01-26] MEDS: Magnesium Hydrox/Alum Hydrox 30 ML ORAL.SUSP PO (15:50)
[2025-01-26 20:00] VITALS: BP 112/55; PULSE 63; RESP 16; TEMP 36.3; O2SAT 97
[2025-01-27 08:00] VITALS: BP 109/65; PULSE 60; RESP 16; TEMP 35.7; O2SAT 94
--- NOTE | 2025-01-27 08:46 | P.PNPSI_ITS ---
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 Talked about his diet at home and how health conscious he is and he can't maintain the healthy routine here. Denies active SI. Review of Systems Review of Systems Pt denies chest pain, any source of pain. he reports intermittent periods of constipation but reports last BM was today. No changes in vision. No abdominal pain. No vomiting nor nausea. Yes all other systems are reviewed and are negative Mental Status Exam Mental Status Exam Narrative: Appearance: wearing hospital gown, fair hygiene, in NAD Behavior: cooperative friendly Psychomotor: no agitation or retardation noted Speech: clear, normal rate/rhythm/volume, spontaneous TP: linear TC: feeling better but still worried about his future Mood: anxious Affect: calmer than reported anxious mood, tearful when talking about suicidal thoughts and plan. SI: currently denies any plan or intent to harm himself HI: none VH/AH: none Delusions: none Insight/judgment: poor x 2. Memory/cog: alert, oriented x 3. grossly intact but pending MOCA/ACL. Diagnostics Vital Signs (24Hr): Vital Signs - 24 hr 01/26/25 14:14 01/26/25 20:00 01/27/25 08:00 Temperature 97.3 F 96.3 F L Pulse Rate 63 60 Respiratory Rate 16 16 Blood Pressure 150/82 H 112/55 L 109/65 Pulse Oximetry 97 94 Oxygen Delivery Method Room Air Room Air BMI result Body Mass Index 23.6 Labs 01/25/25 12:10 01/25/25 07:35 Labs: Laboratory Results - last 48 hr 01/25/25 12:10 WBC 7.0 RBC 4.05 L Hgb 14.2 Hct 40.3 L MCV 99.5 H MCH 35.1 H MCHC 35.2 RDW 13.2 Plt Count 140 L MPV 9.5 Immature Gran % (Auto) 0.3 Neut % (Auto) 73.6 H Lymph % (Auto) 16.0 L [place] % (Auto) 9.7 Eos % (Auto) 0.3 Baso % (Auto) 0.1 Lymph # (Auto) 1.1 L [place] # (Auto) 0.7 Eos # (Auto) 0.0 Baso # (Auto) 0.0 Abs Immat Gran (auto) 0.02 Absolute Neuts (auto) 5.2 Absolute Nucleated RBC 0.000 Nucleated RBC % (auto) 0.0 Ammonia 15 Vitamin B12 1133 H 25-OH Vitamin D Total 40.2 Medications Medications Current Medications Al Hydroxide/Mg Hydroxide (Magnesium Hydrox/Alum Hydrox 30 Ml Oral.Susp) 30 ml PO Q6H PRN PRN Reason: Heartburn/Nausea Last Admin: 01/26/25 15:50 Dose: 30 ml Clonidine HCl (Clonidine Hcl 0.1 Mg Tablet) 0.05 mg PO BID PRN; Protocol PRN Reason: Severe anxiety Last Admin: 01/26/25 14:14 Dose: 0.05 mg Cyanocobalamin (Cyanocobalamin (Vitamin B-12) 100 Mcg Tablet) 100 mcg PO DAILY [facility] Last Admin: 01/26/25 09:06 Dose: Not Given Gabapentin (Gabapentin 300 Mg Capsule) 300 mg PO BEDTIME [facility] Last Admin: 01/26/25 20:28 Dose: 300 mg Levothyroxine Sodium (Levothyroxine Sodium 50 Mcg Tablet) 50 mcg PO DAILY@0600 [facility] Last Admin: 01/27/25 06:34 Dose: 50 mcg Magnesium Hydroxide (Milk Of Magnesia 30 Ml Oral.Susp) 30 ml PO DAILY PRN PRN Reason: Constipation Last Admin: 01/26/25 14:15 Dose: 30 ml Magnesium Oxide (Magnesium Oxide 400 Mg Tablet) 400 mg PO BEDTIME [facility] Last Admin: 01/26/25 20:28 Dose: 400 mg Melatonin (Melatonin 3 Mg Tablet) 3 mg PO BEDTIME [facility] Last Admin: 01/26/25 20:28 Dose: 3 mg Nicotine (Nicotine 21 Mg Patch.Td24) 21 mg TRANSDERMA DAILY PRN PRN Reason: nicotine craving Nicotine Polacrilex (Nicotine Polacrilex 2 Mg Gum) 2 mg BUCCAL Q2H PRN PRN Reason: Nicotine Cravings Last Admin: 01/27/25 06:34 Dose: 2 mg Risperidone (Risperidone 0.25 Mg Tablet) 0.25 mg PO TID [facility] Last Admin: 01/26/25 20:28 Dose: 0.25 mg Senna (Sennosides 8.6 Mg Tablet) 8.6 mg PO BEDTIME PRN PRN Reason: Constipation Trazodone HCl (Trazodone Hcl 50 Mg Tablet) 50 mg PO BEDTIME MRX1 PRN PRN Reason: Insomnia Last Admin: 01/27/25 00:48 Dose: 50 mg Valacyclovir HCl (Valacyclovir Hcl 500 Mg Tablet) 500 mg PO BID [facility] Last Admin: 01/26/25 20:28 Dose: 500 mg Allergies Allergies Allergy/AdvReac Type Severity Reaction Status Date / Time No Known Allergies Allergy Verified 01/24/25 19:50 Assessment & Plan Assessment & Plan (1) Medical clearance for psychiatric admission: Status: Acute Code(s): Z00.8 - Encounter for other general examination (2) Constipation: Status: Acute Code(s): K59.00 - Constipation, unspecified Plan Patient is a 69-year-old male with a past medical history significant for hypothyroid, cirrhosis, hepatocarcinoma and pulmonary mass, admitted to [facility] for SI. Hospitalist consultation placed for medical H and P. SI/mood - plan per psych Constipation - continue milk of magnesia add senna Hypothyroid - TSH normal - continue levothyroxine Cirrhosis/hepatic carcinoma/pulmonary mass - AST 85, ALT 90, alk-phos normal - continue outpatient follow-up with GI and Oncology Thank you for allowing me to participate in the pt's care. Signing off. Please contact the medical team if any questions or concerns. 01/26: continue current management and treatment plan. 01/27: Ativan 1 mg BIDD PRN. Reason for continued inpatient stay Substantial Risk for: harm to self, inability to function and rapid decompensation Time Spent With Patient Time: Total time managing care of this patient today ____ minutes.
[2025-01-27 20:00] VITALS: BP 132/70; PULSE 60; RESP 16; TEMP 36; O2SAT 97
[2025-01-27] MEDS: Magnesium Hydrox/Alum Hydrox 30 ML ORAL.SUSP PO (22:12)
[2025-01-28 08:00] VITALS: BP 148/79; PULSE 62; RESP 16; TEMP 36.7; O2SAT 96
--- NOTE | 2025-01-28 12:05 | HO.PSYCHPN ---
Subjective Subjective Date of Service: 01/28/25 Reason For Visit: Adjustment d/o Interim History: Patient reports he is having leg cramps today. He never had those before. He says he is staying hydrated and eating well. Advocating for discharge. He says his SI has subsided. Thankful for the Lorazepam which has been helpful. Takes it at night. Wants to continue his self care routine and diet at home. Denies SI. Review of Systems Review of Systems Pt denies chest pain, any source of pain. he reports intermittent periods of constipation but reports last BM was today. No changes in vision. No abdominal pain. No vomiting nor nausea. Yes all other systems are reviewed and are negative Mental Status Exam Mental Status Exam Narrative: Appearance: wearing hospital gown, fair hygiene, in NAD Behavior: cooperative friendly Psychomotor: no agitation or retardation noted Speech: clear, normal rate/rhythm/volume, spontaneous TP: linear TC: feeling better but still worried about his future Mood: anxious Affect: calmer than reported anxious mood, tearful when talking about suicidal thoughts and plan. SI: currently denies any plan or intent to harm himself HI: none VH/AH: none Delusions: none Insight/judgment: poor x 2. Memory/cog: alert, oriented x 3. grossly intact but pending MOCA/ACL. Diagnostics Vital Signs (24Hr): Vital Signs - 24 hr 01/27/25 20:00 01/28/25 08:00 Temperature 96.8 F 98.1 F Pulse Rate 60 62 Respiratory Rate 16 16 Blood Pressure 132/70 148/79 H Pulse Oximetry 97 96 Oxygen Delivery Method Room Air Room Air BMI result Body Mass Index 23.6 Labs 01/25/25 12:10 01/25/25 07:35 Medications Medications Current Medications Acetaminophen (Acetaminophen 325 Mg Tablet) 650 mg PO Q6H PRN PRN Reason: Pain, Mild 1-3,fever,headache Al Hydroxide/Mg Hydroxide (Magnesium Hydrox/Alum Hydrox 30 Ml Oral.Susp) 30 ml PO Q6H PRN PRN Reason: Heartburn/Nausea Last Admin: 01/27/25 22:12 Dose: 30 ml Clonidine HCl (Clonidine Hcl 0.1 Mg Tablet) 0.05 mg PO BID PRN; Protocol PRN Reason: Severe anxiety Last Admin: 01/26/25 14:14 Dose: 0.05 mg Cyanocobalamin (Cyanocobalamin (Vitamin B-12) 100 Mcg Tablet) 100 mcg PO DAILY [facility] Last Admin: 01/28/25 08:32 Dose: 100 mcg Gabapentin (Gabapentin 300 Mg Capsule) 300 mg PO BEDTIME [facility] Last Admin: 01/27/25 20:56 Dose: 300 mg Levothyroxine Sodium (Levothyroxine Sodium 50 Mcg Tablet) 50 mcg PO DAILY@0600 [facility] Last Admin: 01/28/25 06:05 Dose: 50 mcg Lorazepam (Lorazepam 1 Mg Tablet) 1 mg PO BID PRN PRN Reason: Severe anxiety Last Admin: 01/27/25 21:03 Dose: 1 mg Magnesium Hydroxide (Milk Of Magnesia 30 Ml Oral.Susp) 30 ml PO DAILY PRN PRN Reason: Constipation Last Admin: 01/26/25 14:15 Dose: 30 ml Magnesium Oxide (Magnesium Oxide 400 Mg Tablet) 400 mg PO BEDTIME [facility] Last Admin: 01/27/25 20:56 Dose: 400 mg Melatonin (Melatonin 3 Mg Tablet) 3 mg PO BEDTIME [facility] Last Admin: 01/27/25 20:58 Dose: Not Given Nicotine (Nicotine 21 Mg Patch.Td24) 21 mg TRANSDERMA DAILY PRN PRN Reason: nicotine craving Nicotine Polacrilex (Nicotine Polacrilex 2 Mg Gum) 2 mg BUCCAL Q2H PRN PRN Reason: Nicotine Cravings Last Admin: 01/28/25 04:55 Dose: 2 mg Risperidone (Risperidone 0.25 Mg Tablet) 0.25 mg PO TID [facility] Last Admin: 01/28/25 08:32 Dose: 0.25 mg Senna (Sennosides 8.6 Mg Tablet) 8.6 mg PO BEDTIME PRN PRN Reason: Constipation Trazodone HCl (Trazodone Hcl 50 Mg Tablet) 50 mg PO BEDTIME MRX1 PRN PRN Reason: Insomnia Last Admin: 01/27/25 22:16 Dose: 50 mg Valacyclovir HCl (Valacyclovir Hcl 500 Mg Tablet) 500 mg PO BID [facility] Last Admin: 01/28/25 08:32 Dose: 500 mg Allergies Allergies Allergy/AdvReac Type Severity Reaction Status Date / Time No Known Allergies Allergy Verified 01/24/25 19:50 Assessment & Plan Assessment & Plan (1) Medical clearance for psychiatric admission: Status: Acute Code(s): Z00.8 - Encounter for other general examination (2) Constipation: Status: Acute Code(s): K59.00 - Constipation, unspecified Plan Patient is a 69-year-old male with a past medical history significant for hypothyroid, cirrhosis, hepatocarcinoma and pulmonary mass, admitted to [facility] psych for SI. Hospitalist consultation placed for medical H and P. SI/mood - plan per psych Constipation - continue milk of magnesia add senna Hypothyroid - TSH normal - continue levothyroxine Cirrhosis/hepatic carcinoma/pulmonary mass - AST 85, ALT 90, alk-phos normal - continue outpatient follow-up with GI and Oncology Thank you for allowing me to participate in the pt's care. Signing off. Please contact the medical team if any questions or concerns. 01/26: continue current management and treatment plan. 01/27: Ativan 1 mg BIDD PRN. 01/28: Decrease Risperidone to BID dosing. Reason for continued inpatient stay Substantial Risk for: harm to self and rapid decompensation Time Spent With Patient Time: Total time managing care of this patient today ____ minutes.
[2025-01-28 20:00] VITALS: BP 129/68; PULSE 71; RESP 18; TEMP 36.6; O2SAT 97
[2025-01-29] MEDS: Milk of Magnesia 30 ML ORAL.SUSP PO (04:08)
--- NOTE | 2025-01-29 05:17 | PC.NURSE ---
acetaminophen was given twice at a dose of 325mg one tablet for a total dose of 650mg during the shift. I was not able to change the dose in the JUL when given but returned one tablet to [facility] for each administration
[2025-01-29 09:51] VITALS: BP 124/89; PULSE 70; RESP 18; TEMP 36.4; O2SAT 96
--- NOTE | 2025-01-29 10:57 | PM.PSYDC ---
DS: Providers Provider Date of Service: 01/29/25 Date of admission: 01/24/25 19:26 Date of discharge: 01/29/25 Primary care physician: Cesar Grullon MD Consults: 01/24/25 20:19 Consult to Hospitalist Routine Comment: Consulting Provider: [facility] [place] Hospitalists Reason For Exam: New external admit- H&P DS: Diagnosis Discharge Diagnosis (1) Medical clearance for psychiatric admission: Status: Acute (2) Constipation: Status: Acute DS: Medications Discharge Medications Home Medications: Home Medications ?Medication ?Instructions ?Recorded ?Confirmed gabapentin 300 mg capsule 300 mg PO DAILY 01/24/25 01/24/25 levothyroxine 50 mcg tablet 50 mcg PO DAILY 01/24/25 01/24/25 valacyclovir 500 mg tablet 500 mg PO BID 01/24/25 01/24/25 Mental Status Exam Mental Status Exam Narrative: Appearance: wearing hospital gown, fair hygiene, in NAD Behavior: cooperative friendly Psychomotor: no agitation or retardation noted Speech: clear, normal rate/rhythm/volume, spontaneous TP: linear TC: looking forward to be discharged soon. Mood: better Affect: calmer SI: currently denies any plan or intent to harm himself HI: none VH/AH: none Delusions: none Insight/judgment: poor x 2. Memory/cog: alert, oriented x 3. Data Data Completed and Pending Completed studies during hospitalization [Text1]: 01/25/25 01/25/25 07:35 12:10 WBC 7.0 RBC 4.05 L Hgb 14.2 Hct 40.3 L MCV 99.5 H MCH 35.1 H MCHC 35.2 RDW 13.2 Plt Count 140 L MPV 9.5 Immature Gran % (Auto) 0.3 Neut % (Auto) 73.6 H Lymph % (Auto) 16.0 L [place] % (Auto) 9.7 Eos % (Auto) 0.3 Baso % (Auto) 0.1 Lymph # (Auto) 1.1 L [place] # (Auto) 0.7 Eos # (Auto) 0.0 Baso # (Auto) 0.0 Abs Immat Gran (auto) 0.02 Absolute Neuts (auto) 5.2 Absolute Nucleated RBC 0.000 Nucleated RBC % (auto) 0.0 Sodium 135 Potassium 4.7 Chloride 101 Carbon Dioxide 26 Anion Gap 13 BUN 14 Creatinine 0.94 Estim Creat Clear Calc 66.9 Estimated GFR > 60 Random Glucose 109 Estimat Average Glucose 117 Hemoglobin A1c % 5.7 Calcium 9.3 Total Bilirubin 0.6 AST 85 H ALT 90 H Alkaline Phosphatase 90 Ammonia 15 Total Protein 6.8 Albumin 4.4 Triglycerides 50 Cholesterol 194 LDL Cholesterol, Calc 102 H HDL Cholesterol 82 Vitamin B12 1133 H 25-OH Vitamin D Total 40.2 TSH 1.07 Free T4 0.90 DS: Summary Hospital Course Hospital Course: Mr. Mix is a 69 year-old male with hx of MDD who self presented at recommendation of his therapist to [facility] in [place] due to suicidal ideaiton with plan to OD on combination of opioid medications and benzodiazepines in setting of psychosocial stressors including losing housing in next few weeks and not having contact with two of his 3 children. Pertinent labs completed in ED include CBC with macrocytic anemia (stable H&H 13.7/39.4), low Plts 134. CMP without electrolyte abnormalities, BUN 8, Cr 1.00, elevated AST 80, ALT 94, Alkaline phos wnl, bilirun wnl. Utox positive for cannabinoids. BAL negative. Pt has hx of cirrhosis and hepatocarcinoma. On the unit, pt presents as calm and cooperative. He reports for the past 3 weeks he has been having increase suicidal ideation with plan to OD on opioids and benzodiazepines. He reports multiple aspects in his life contributed to this including about to lose housing, worsening medical conditions/health, increase recreational use of [place] and lack of communication with 2 of his 3 children. He reports recently started going to therapy weekly. He reports he had reported to his therapist suicidal ideation and had promised her to let her know if he had an active plan to hurt himself. He reports he felt overwhelmed and realized he is not coping well with stressors and disclosed to therapist active suicidality. Pt endorses raising thoughts. He reports he has suffered from depression for most of his life. He reports he has taken more than 10 antidepressants. He reports none of them have been effective. He reports he is not interested in antidepressants but will to try a medication for raising thoughts. He asks about olanzapine- however discussed that olanzapine is heavily metabolized by liver. HOSPITAL COURSE On the unit, pt was admitted on a CV, 3 day notice. He was on 15 minutes checks for safety. Pt reported feeling more depression, with racing thoughts and suicidal ideation for the past 3 weeks in context of multiple psychosocial stressors including facing homelessness, worsening of his medical health, and not having communication with two of his adult children. We discussed risks, benefits and alternative treatment options, pt reported he has been on multiple antidepressant throughout his life and not interested in trying one at this point. He asked for medication that could help with racing thoughts which he describes as preoccupation about psychosocial stressors. He asked if medication like olanzapine could help, we discussed this medication is heavily metabolized by the liver and recommended instead risperidone. He tried low dose and did not have any side effects. It was also explained to Mr. Mix that this medication does not treat s/s of unipolar depression. Pt presented as future oriented. He identify multiple other sources of support such as psychotherapy, his spiritual believes, natural remedies including multivitamins. He reported that he felt calmer and more equipped to continue working on his health and looking into options for housing. He reported misuse of [place]- he had been on suboxone in the past for this but declined this time around stating that it was not that effective. He denied any recent use of alcohol due to precarious condition of his liver. He declined further assistance for substance use disorder. He agreed to continue individual psychotherapy and to be referred to a psychiatrist to continue risperidone or other non antidepressant medication that can help his anxiety/racing thoughts. Time spent discussing smoking cessation with patient: 3 to 10 minutes Status at Discharge Cognitive/behavioral status at discharge: Pt with brighter, non labile affect. No SI/HI. No signs of psychosis or delusions. Sleeping and eating well. No signs of aggression towards self or others. Functional status at discharge: independent ambulation Overall status at discharge: patient is progressing back to baseline Time Spent with Patient Time attestation: Total time managing care of this patient today __40__ minutes. Time spent: Greater than 30 minutes Discharge Plan Discharge Anticipated Discharge Date/Time: 01/29/25 10:58 Patient Disposition: Home, Self-Care Discharge Diagnosis: MDD, recurrent, moderate Referrals: Cesar Grullon MD [Primary Care Provider, [facility]] - 3-5 Days Referral Note: Please reach out to Dr. Grullon for an aftercare appointment. The phone number is listed for your convenience. Discharge Medications: New nicotine (polacrilex) 2 mg Gum 2 mg buccal Q2H PRN (Reason: Nicotine Cravings) Qty: 30 0RF risperidone 0.25 mg Tablet 0.25 mg PO BID Qty: 30 0RF melatonin 3 mg Tablet 3 mg PO BEDTIME Qty: 0 0RF levothyroxine 50 mcg Tablet 50 mcg PO DAILY@0600 Qty: 30 0RF gabapentin 300 mg Capsule 300 mg PO BEDTIME Qty: 30 0RF Continued valacyclovir 500 mg tablet 500 mg PO BID Discontinued levothyroxine 50 mcg tablet 50 mcg PO DAILY gabapentin 300 mg capsule 300 mg PO DAILY Discharge Orders: Discharge Order (Routine); Ordered 01/29/25 Ordered By: Anastasia Duran Diet: Advance to usual diet Activity on Discharge: As tolerated Stand Alone Forms: Patient Portal Discharge page Print Language: Albanian Care Plan Goals: 1. Maintain mood 2. No SI/HI Health Concerns: Follow up with PCP and GI specialist Plan of Treatment: 1. Take medications as prescribed. 2. Go to nearest ED or call 911 in event of emergency Assessment: Pt with brighter non labile affect. No SI/HI. No signs of psychosis o delusions. Sleeping through the night. Future oriented.
== END 2025-01-29 13:00 | disposition home or self-care (01) | DRG 885 ==
PROVIDERS: Nurse Practitioner Psychiatric/Mental Health; Social Worker; Admitting Provider Psychiatry & Neurology Psychiatry; PCP Family Medicine; Visit Provider Psychiatry & Neurology Psychiatry
DX: F33.1 Major depressive disorder, recurrent, moderate (principal); R45.851 Suicidal ideations; C22.7 Other specified carcinomas of liver; E03.9 Hypothyroidism, unspecified; K59.00 Constipation, unspecified; K74.60 Unspecified cirrhosis of liver; R91.8 Other nonspecific abnormal finding of lung field; Z87.891 Personal history of nicotine dependence; Z79.890 Hormone replacement therapy; Z79.899 Other long term (current) drug therapy
CPT/HCPCS: 36415; 80053; 80061; 82140; 82306; 82607; 83036; 84439; 84443; 85025

== ENCOUNTER → 2025-01-24 19:26 | Outpatient (BNV) | payer MEDICARE, MEDICAID, SELFPAY | PROVIDERS: Admitting Provider Psychiatry & Neurology Psychiatry; PCP Family Medicine; Visit Provider Social Worker | DX: F33.1 Major depressive disorder, recurrent, moderate (principal); K59.00 Constipation, unspecified | CPT/HCPCS: 90792; 99231; 99232; 99239 ==

== ENCOUNTER → 2025-01-24 19:26 | Outpatient (BNV) | payer MEDICARE, MEDICAID, SELFPAY | PROVIDERS: Admitting Provider Psychiatry & Neurology Psychiatry; PCP Family Medicine; Visit Provider Physician Assistant | DX: Z00.8 Encounter for other general examination (principal); K59.00 Constipation, unspecified | CPT/HCPCS: 99222 ==